=== PATIENT | male | born 1935 | race Caucasian/White ===

== ENCOUNTER 2016-06-10 15:25 | Inpatient (IN) | payer BC ==
[~2016-06-10] VITALS: Ht 175.3 cm; Wt 61.6 kg
[~2016-06-10 15:25] MED LIST: ADV25050 INH; ALBU8.5H3 INH; ASPI81TA3 PO; DUTA0.5C PO; PARO20TA58 PO; RTPRO HHN; TAMS-14 PO; TIOT18CA IH; TRAV4OP25 BOTH EYES; ZOC10 PO; ZOLP10TA5 PO; [UNRECOGNIZED DRUG - CODE] BOTH EYES
[2016-06-10] MEDS ORDERED: CEFEPIME 2GM/50 ML (PMX) 50 ML IVPB STA (16:56)
[2016-06-10] MEDS ORDERED: SODIUM CHLORIDE 0.9% 1L BAG IV* STA (16:56)
[2016-06-10 17:30] LABS: EOSINOPHILS # 0.1 10^3/ul (0.0-0.5); EOSINOPHILS % 0.9 % (0.0-7.0); HEMATOCRIT 36.1 % (42.0-52.0); HEMOGLOBIN 11.1 g/dl (14.0-18.0); LYMPHOCYTES # 0.8 10^3/ul (0.8-2.9); LYMPHOCYTES % 5.8 % (15.0-51.0); MEAN CORPUSCULAR HEMOGLOBIN 22.7 pg (29.0-33.0); MEAN CORPUSCULAR HGB CONC 30.8 g/dl (32.0-37.0); MEAN CORPUSCULAR VOLUME 73.7 fl (82.0-101.0); MEAN PLATELET VOLUME 7.7 fl (7.4-10.4); MONOCYTE # 0.6 10^3/ul (0.3-0.9); MONOCYTES % 4.2 % (0.0-11.0); NEUTROPHIL # 12.5 10^3/ul (1.6-7.5); NEUTROPHILS % 89.1 % (39.0-77.0); PLATELET COUNT 249 10^3/UL (140-440); RED BLOOD COUNT 4.89 10^6/ul (4.70-6.10); RED CELL DISTRIBUTION WIDTH 19.6 % (11.5-14.5); UNCORRECTED WBC 14.1 10^3/ul (4.8-10.8); WHITE BLOOD COUNT 14.1 10^3/ul (4.8-10.8)
[2016-06-10 17:37] LABS: INR 0.88; PROTIME 11.9 Sec (12.2-14.2); PT RATIO 0.9
[2016-06-10 17:38] LABS: PARTIAL THROMBOPLASTIN TIME 24.5 Sec (25.0-35.0)
[2016-06-10 17:40] LABS: CONDITION 1; LH ANALYZER COMMENTS 1
[2016-06-10 17:41] LABS: ALBUMIN 3.6 g/dl (3.3-4.9)
[2016-06-10 17:42] LABS: POTASSIUM 4.8 mmol/L (3.5-5.1)
[2016-06-10 17:44] LABS: ALBUMIN/GLOBULIN RATIO 1.28; BILIRUBIN,INDIRECT 0.3 mg/dl (0-1.1); BILIRUBIN,TOTAL 0.3 mg/dl (0.2-1.3); CREATININE 0.77 mg/dl (0.61-1.24); TOTAL PROTEIN 6.4 g/dl (6.1-8.1)
[2016-06-10 17:45] LABS: CALCIUM 8.8 mg/dl (8.4-10.2)
--- NOTE | 2016-06-10 17:50 | RADRPT ---
PROCEDURE: XR Chest. CLINICAL INDICATION: Shortness of breath. TECHNIQUE: Single frontal view. COMPARISON: 07/19/2014. FINDINGS: The lungs are clear. The heart size is normal. There is no pleural effusion. There is no pneumothorax. IMPRESSION: 1. Normal chest radiograph. RPTAT: QQ .Reginaldo Harper MD, MD Date Time Electronically viewed and signed by .Reginaldo Harper MD, MD on 06/10/2016 17:50 .R/
[2016-06-10 17:56] LABS: TROPONIN-I 0.021 ng/ml (0.00-0.12)
[2016-06-10 18:05] LABS: AADO2 Arterial 36.4 mmHg (7.0-24.0); Allen Test ACCEPTAB; Arterial COHb 0.5 % (0.0-3.0); Arterial Fraction of Oxyhgb 94.2 % (93.0-99.0); Arterial HCO3 34.4 mmol/L (22.0-26.0); Arterial MetHb 0.3 % (0.0-1.5); Arterial Total Hemglobin 11.8 g/dl (12.0-18.0); MODE NASAL CANNULA
[2016-06-10 18:30] LABS: ADD UMIC YES; URINE BILIRUBIN (Dip) NEGATIVE (NEGATIVE); URINE BLOOD (Dip) NEGATIVE (NEGATIVE); URINE COLOR YELLOW (YELLOW); URINE GLUCOSE (Dip) NEGATIVE (NEGATIVE); URINE KETONES (Dip) TRACE (NEGATIVE); URINE LEUKOCYTE ESTERASE (Dip) NEGATIVE (NEGATIVE); URINE NITRITE (Dip) NEGATIVE (NEGATIVE); URINE TOTAL PROTEIN (Dip) TRACE (NEGATIVE); URINE UROBILINOGEN (Dip) 0.2 E.U./dL (0.1-1.0)
[2016-06-10 18:48] LABS: BACTERIA,URINE FEW; MUCUS,URINE FEW; URINE RBCS 0-2 /HPF (0)
[2016-06-10] MEDS ORDERED: ALBUTEROL 0.5% (NEB) 2.5 MG/0.5 ML AMP HHN STA (19:09)
[2016-06-10] MEDS ORDERED: VANCOMYCIN 1 GM (PMX) 250 ML IVPB SCH (19:30)
[2016-06-10] MEDS ORDERED: IPRATROPIUM (NEB) 0.5 MG/2.5 ML AMP HHN ONE (19:30)
[2016-06-10 20:26] VITALS: TEMP 98.6
[2016-06-10] MEDS ORDERED: ONDANSETRON 4 MG INJ IV PRN (21:00)
[2016-06-10] MEDS ORDERED: ACETAMINOPHEN 325 MG TAB PO PRN ×2 (21:00→23:30)
[2016-06-10 22:34] VITALS: PULSE 107
--- NOTE | 2016-06-10 22:44 | ERD ---
ER Documentation Chief Complaint Date/Time DATE: 06/10/16 TIME: 22:28 Chief Complaint more lethargic per daughter over 2 days. no cp. possible high co2 per fam HPI This 80-year-old male presents to emergency room for shortness of breath on home oxygen as well as being more somnolent, not eating and speaking less today. His daughter states that sometimes he gets just like this when his CO2 level is higher. She remembers a recent CO2 level 74 which caused these symptoms. Patient denies any chest pain. He denies any pain anywhere on his body. He also denies fevers and chills. Does admit that he feels more tired than normal and has some generalized weakness without any focal weaknesses. ROS All systems reviewed and are negative except as per history of present illness. Medications Home Meds Active Scripts Paroxetine Hcl* (Paxil*) 20 Mg Tab, 20 MG PO QAM for 30 Days Prov:CAROLYNE PARMAR MD- 12/17/13 Albuterol Sulfate* (Proventil* Neb) 2.5 Mg/3 Ml Nebu, 2.5 MG HHN Q6H RESP THERAPY for 30 Days Prov:CAROLYNE PARMAR MD- 12/17/13 Reported Medications Zolpidem Tartrate* (Zolpidem Tartrate*) 10 Mg Tablet, 10 MG PO HS Y for INSOMNIA , TAB 07/19/14 Aspirin (Aspirin) 81 Mg Chew, 81 MG PO DAILY 12/05/13 Travoprost* (Travatan*) 0.004%-2.5 Ml Opht, 1 DROP BOTH EYES DAILY 12/05/13 Brimonidine Tartrate* (Alphagan-P*) 0.1%-5 Ml Drop Opht, 1 DROP BOTH EYES DAILY 12/05/13 Simvastatin (Simvastatin) 10 Mg Tablet, 10 MG PO DAILY 12/05/13 Dutasteride* (Avodart*) 0.5 Mg Capsule, 0.5 MG PO weekly 12/05/13 Tamsulosin Hcl* (Flomax*) 0.4 Mg Cap.er.24h, 0.4 MG PO daily 12/05/13 Salmeterol Xinaf/Fluticasone* (Advair*) 250-50 Diskus Inhaler, 1 PUFF INH BID 12/05/13 Tiotropium [place]* (Spiriva*) 18 Mcg Cap.w.dev, 1 INH IH DAILY 12/05/13 Albuterol Sulfate* (Proair HFA*) 8.5 Gm Hfa.aer.ad, 2 PUFF INH Q4, INH 09/13/13 Allergies Allergies: Coded Allergies: No Known Drug Allergy (Verified Allergy, Unknown, 07/19/14) PMhx/Soc History of Surgery: Yes (ABDOMINAL AORTIC STENT PLACEMENT 2007) Anesthesia Reaction: No Hx Neurological Disorder: No Hx Respiratory Disorders: Yes (COPD) Hx Cardiac Disorders: Yes Hx Psychiatric Problems: No Hx Miscellaneous Medical Probl: Yes (prostate problems) Hx Alcohol Use: Yes (1991) Hx Substance Use: No Hx Tobacco Use: Yes Smoking Status: Current every day smoker Physical Exam Vitals Vital Signs Date Time Temp Pulse Resp B/P Pulse Ox O2 Delivery O2 Flow Rate FiO2 06/10/16 20:43 98 18 98 Nasal Cannula 2.5 06/10/16 20:26 98.6 99 18 98/69 94 Nasal Cannula 2.0 06/10/16 18:38 94 17 109/72 97 Nasal Cannula 2.0 06/10/16 18:02 109 21 109/72 97 Nasal Cannula 2.0 06/10/16 17:09 Nasal Cannula 2 06/10/16 15:26 97.8 112 30 105/67 96 Physical Exam Const: [] Mild distress, Head: Atraumatic Eyes: Normal Conjunctiva ENT: Normal External Ears, Nose and Mouth. Neck: Full range of motion..~ No meningismus. Resp: Decreased bibasilar breath sounds Cardio: Regular tachycardia, no murmurs Abd: Soft, non tender, non distended. Normal bowel sounds Skin: No petechiae or rashes Back: No midline or flank tenderness Ext: No cyanosis, trace bilateral pedal edema Neur: Awake and alert and oriented, appears somnolent, moves all 4 extremities, cranial nerves II through XII intact. Result Diagram: 06/10/16 1710 06/10/16 171 Results 24 hrs Laboratory Tests Test 06/10/16 16:56 06/10/16 17:10 06/10/16 18:11 06/10/16 18:55 Arterial Blood HCO3 34.4mmol/L Arterial Blood Base Excess 7.0mmol/L Arterial Blood Oxygen Saturation 95.0mmHG Kahlil Test ACCEPTAB Arterial Blood Gas Puncture Site Right Radial Arterial Blood Carboxyhemoglobin 0.5% Arterial Blood Date Drawn 06/10/2016 5:50:13 PM Arterial Blood Methemoglobin 0.3% Arterial Blood pCO2 (Temp correct) 64.1mmhg Arterial Blood pH (Temp corrected) 7.348 Arterial Blood pO2 (Temp corrected) 80.3mmHG Blood Gas A-a O2 Differential 36.4mmHg Blood Gas Actual Respiration Rate 18 Blood Gas Critical Value Read Back DR. JORGE CORTÉS Blood Gas Modality NASAL CANNULA Blood Gas Notified Time 06/10/2016 6:05:12 PM Blood Gas Notified Whom HALLIE RT Blood Gas Specimen Source Blood arterial Blood Gas Temperature 37.0C FiO2 27.0% Oxyhemoglobin Percent 94.2% Total Hemoglobin 11.8g/dl Activated Partial Thromboplast Time 24.5Sec Alanine Aminotransferase (ALT/SGPT) 34IU/L Albumin 3.6g/dl Albumin/Globulin Ratio 1.28 Alkaline Phosphatase 139IU/L Anion Gap 13 Aspartate Amino Transf (AST/SGOT) 25IU/L B-Type Natriuretic Peptide 248PG/ML Basophils # 0.010^3/ul Basophils % 0.0% Blood Morphology Comment Blood Urea Nitrogen 25mg/dl Calcium Level 8.8mg/dl Carbon Dioxide Level 38mmol/L Chloride Level 92mmol/L Creatinine 0.77mg/dl Direct Bilirubin 0.00mg/dl Eosinophils # 0.110^3/ul Eosinophils % 0.9% Globulin 2.80g/dl Glucose Level 129mg/dl Hematocrit 36.1% Hemoglobin 11.1g/dl INR International Normalized Ratio 0.88 Indirect Bilirubin 0.3mg/dl Lactic Acid Level 1.2mmol/L 1.2mmol/L Lymphocytes # 0.810^3/ul Lymphocytes % 5.8% Mean Corpuscular Hemoglobin 22.7pg Mean Corpuscular Hemoglobin Concent 30.8g/dl Mean Corpuscular Volume 73.7fl Mean Platelet Volume 7.7fl Monocytes # 0.610^3/ul Monocytes % 4.2% Neutrophils # 12.510^3/ul Neutrophils % 89.1% Nucleated Red Blood Cells # 0.010^3/ul Nucleated Red Blood Cells % 0.0/100WBC Platelet Count 12067^3/UL Potassium Level 4.8mmol/L Prothrombin Time 11.9Sec Prothrombin Time Ratio 0.9 Red Blood Count 4.8910^6/ul Red Cell Distribution Width 19.6% Sodium Level 138mmol/L Total Bilirubin 0.3mg/dl Total Protein 6.4g/dl Troponin I 0.021ng/ml White Blood Count 14.110^3/ul Urine Bacteria FEW Urine Bilirubin NEGATIVE Urine Clarity CLEAR Urine Color YELLOW Urine Epithelial Cells OCCASIONAL Urine Glucose NEGATIVE% Urine Hemoglobin NEGATIVE Urine Ketones TRACE Urine Leukocyte Esterase NEGATIVE Urine Microscopic RBC 0-2/HPF Urine Microscopic WBC 0-2/HPF Urine Mucus FEW Urine Nitrite NEGATIVE Urine Specific [place] 1.020 Urine Total Protein TRACE Urine Urobilinogen 0.2 E.U./dL Urine pH 6.0 Test 06/10/16 21:25 Lactic Acid Level 0.6mmol/L Current Medications Medications (Trade) Dose Ordered Sig/Jimmy Route PRN Reason Start Time Stop Time Status Last Admin Dose Admin Sodium Chloride 1760 ml 1,760 ml BOLUS OVER 2 HOURS STAT IV* 06/10/16 16:56 06/10/16 16:58 DC 06/10/16 17:49 Cefepime HCl 50 ml @ 100 mls/hr ONCE STAT IVPB 06/10/16 16:56 06/10/16 17:25 DC 06/10/16 17:49 Vancomycin HCl (Vancocin) 250 ml @ 125 mls/hr ONCE IVPB 06/10/16 19:30 06/10/16 21:29 DC 06/10/16 20:37 Albuterol (Proventil 0.5% (Neb)) 5 mg ONCE STAT HHN 06/10/16 19:09 06/10/16 19:10 DC 06/10/16 20:43 Ipratropium [place] (Atrovent 0.02% (Neb)) 0.5 mg ONCE ONCE HHN 06/10/16 19:30 06/10/16 19:31 DC 06/10/16 20:43 Ondansetron HCl (Zofran Inj) 4 mg ER BRIDGE PRN IV NAUSEA AND/OR VOMITING 06/10/16 21:00 06/11/16 20:59 Acetaminophen (Tylenol Tab) 650 mg ER BRIDGE PRN PO MILD PAIN/FEVER 06/10/16 21:00 06/11/16 20:59 Procedures/MDM COPD exacerbation and sepsis with source not yet known. He has had tachycardia elevated white count. He was given cefepime empirically. No obvious pneumonia or urinary tract infection. Bronchitis is possible. Patient had no abdominal symptoms and no reason to obtain abdominal CT. He was given 30 cc/kg of IV fluid which did improve his heart rate gradually. He is also given albuterol and Atrovent breathing treatment. CO2 was 64 on ABG which may slightly be slightly contributing symptoms but I believe the sepsis is more likely. Solu- Medrol was also ordered. With fluid administration his activity level and mental status improved and according to the daughter and he was feeling better. He will be admitted for further antibiotics and evaluation and monitoring. Dr. Murray is admitting. EKG interpretation: Sinus tachycardia rate of 106. Borderline right axis deviation, no ST or T-wave changes concerning for acute ischemia. court recording monitor interpretation: Sinus tachycardia without other arrhythmias Chest x-ray interpretation: I see no acute process, no infiltrates, no widened mediastinum, no pneumothorax, no acute fractures Departure Diagnosis: Primary Impression: Sepsis Additional Impressions: COPD exacerbation Microcytic anemia Respiratory acidosis Altered level of consciousness Condition: Stable JORGE CORTÉS DO Jun 10, 2016 22:38
[2016-06-10 22:48] VITALS: BP 99/60; RESP 20
[2016-06-10] MEDS ORDERED: METHYLPREDNISOLONE 125 MG INJ IV ONE (23:00)
[2016-06-10] MEDS ORDERED: ZOLPIDEM 5 MG TAB PO PRN (23:30)
[2016-06-11] VITALS (13 sets, daily range): BP systolic 103–141; BP diastolic 62–73; PULSE 78–109; RESP 15–20; Ht 175.3 cm; Wt 61.6 kg
[2016-06-11] MEDS: ALBUTEROL/IPRATROPIUM (NEB) 3 ML AMP HHN SCH ×4 (01:20→19:44)
[2016-06-11 07:49] LABS: POTASSIUM 4.7 mmol/L (3.5-5.1)
[2016-06-11 07:51] LABS: CREATININE 0.58 mg/dl (0.61-1.24)
[2016-06-11 07:52] LABS: CALCIUM 8.1 mg/dl (8.4-10.2)
[2016-06-11 08:04] LABS: HEMATOCRIT 30.1 % (42.0-52.0); HEMOGLOBIN 9.4 g/dl (14.0-18.0); LYMPHOCYTES # 0.4 10^3/ul (0.8-2.9); LYMPHOCYTES % 3.9 % (15.0-51.0); MEAN CORPUSCULAR HEMOGLOBIN 23.1 pg (29.0-33.0); MEAN CORPUSCULAR HGB CONC 31.2 g/dl (32.0-37.0); MEAN CORPUSCULAR VOLUME 73.8 fl (82.0-101.0); MEAN PLATELET VOLUME 7.9 fl (7.4-10.4); MONOCYTE # 0.1 10^3/ul (0.3-0.9); MONOCYTES % 0.9 % (0.0-11.0); NEUTROPHILS % 95.2 % (39.0-77.0); PLATELET COUNT 223 10^3/UL (140-440); RED BLOOD COUNT 4.08 10^6/ul (4.70-6.10); RED CELL DISTRIBUTION WIDTH 18.7 % (11.5-14.5); UNCORRECTED WBC 9.4 10^3/ul (4.8-10.8); WHITE BLOOD COUNT 9.4 10^3/ul (4.8-10.8)
[2016-06-11 08:05] LABS: CONDITION 1; LH ANALYZER COMMENTS 1
[2016-06-11] MEDS ORDERED: NON-FORMULARY/PATIENT OWN MED (Simvastatin 10 MG) PO SCH (09:00)
[2016-06-11] MEDS ORDERED: METHYLPREDNISOLONE 40 MG INJ IV SCH (09:00)
[2016-06-11] MEDS ORDERED: TRAVOPROST 0.004% 2.5 ML OPH BOTH EYES SCH (09:00)
[2016-06-11] MEDS: CEFEPIME 1GM/50 ML (PMX) 50 ML IVPB SCH ×2 (10:03→20:53)
[2016-06-11] MEDS: SALMETEROL/FLUTICASONE 250/50 INHA INH SCH ×2 (10:05→20:53)
[2016-06-11] MEDS: BRIMONIDINE 0.1% 5 ML OPH BOTH EYES SCH (10:05)
[2016-06-11] MEDS: TIOTROPIUM 18 MCG CAPSULE INHA DEV INH SCH (10:06)
[2016-06-11] MEDS: ASPIRIN 81 MG TAB PO SCH (10:06)
[2016-06-11] MEDS: TAMSULOSIN (SR) 0.4 MG CAP PO SCH (10:06)
[2016-06-11] MEDS: PAROXETINE 20 MG TAB PO SCH (10:06)
[2016-06-11] MEDS: ENOXAPARIN 40 MG/0.4 ML SYG SC SCH (10:26)
[2016-06-11] MEDS ORDERED: ALPRAZOLAM 0.5 MG TAB PO PRN (11:30)
[2016-06-11] MEDS: FAMOTIDINE 20 MG TAB PO SCH (11:59)
--- NOTE | 2016-06-11 12:43 | HP ---
DATE OF ADMISSION: 06/10/2016 CHIEF COMPLAINT: Patient was brought by his daughter due to the patient feels more lethargic. HISTORY OF PRESENT ILLNESS: The patient is an 80-year-old gentleman with history of COPD, on home o xygen. Patient with GERD, BPH, anxiety, hyperlipidemia, and insomnia. Patient noted to be more ad nolent than usual. Patient had a history of a CO2 retainer, and the patient's daughter was concerne d about it and brought patient to the emergency room. The patient complained of generalized weaknes s, lethargy, and difficulty breathing. Patient denied any fever or chills, denies chest pain. The patient underwent a chest x-ray in the emergency room which showed clear lungs. A urinalysis was wi thin normal limits. The patient's ABG with pCO2 was 64; however, according to the daughter the marshall ent had a recent lethargic episode with a CO2 level being 74. Patient's PTH was 7.34. A recent ABG pO2 is 80, bicarbonate 34,l and oxygen saturation 95 on nasal cannula at 27% oxygen. The patient's white blood cells were found to be elevated to 14,100. Blood pressure was also 98/69, and patient was tachycardic on presentation to the emergency room. Patient was started on cefepime for possible bronchitis or early pneumonia. The patient was also getting breathing treatment and Solu-Medrol wi th some improvement in symptoms. The patient is admitted for further evaluation and management. PAST MEDICAL HISTORY: Per HPI. PAST SURGICAL HISTORY: Status post abdominal aortic aneurysm repair in 2007, status post cataract r epair in 2009. FAMILY HISTORY: Patient's mother of atherosclerotic heart disease. Patient's father had a sei zure disorder. One of the patient's siblings of lung cancer. SOCIAL HISTORY: Patient lives at home. The patient is still an every day smoker, states he smokes about a couple of cigarettes per day, trying to quit. The patient denies any recent alcohol use, de nies illicit drug use. ALLERGIES: NO KNOWN ALLERGIES. HOME MEDICATIONS: 1. Paroxetine. 2. Proventil. 3. Zolpidem. 4. Aspirin. 5. Travatan. 6. Alphagan. 7. Simvastatin. 8. Avodart. 9. Flomax. 10. Advair. 11. Spiriva. 12. ProAir HFA. REVIEW OF SYSTEMS: A 12-point review of systems is negative unless was mentioned in the HPI. The p atient denies any nausea, vomiting, diarrhea. Denies any lower extremity swelling. Denies chills. PHYSICAL ASSESSMENT GENERAL: Well-developed, well-nourished male, currently is awake, alert. VITAL SIGNS: Temperature is 97.8, pulse is 102, respiratory rate 20, blood pressure 128/62, oxygen saturation 97% on 2 liters nasal cannula. HEENT: Head is atraumatic, normocephalic. Pupils equal, round, reactive to light and accommodation . Oral mucosa is pink and moist. NECK: Supple. No cervical lymphadenopathy. No thyromegaly. CHEST: The patient has some inspiratory wheezing and diminished air entry bilaterally. CARDIOVASCULAR: Heart: Normal S1, S2. No murmurs, gallops, clicks, rubs noted. Patient is slight ly tachycardic. ABDOMEN: Protuberant, soft, nondistended, nontender. Bowel sounds present. There is no guarding, no rebound tenderness. EXTREMITIES: Trace bilateral edema. No clubbing, cyanosis. Pulses equal bilaterally 2+. SKIN: There is no rash or petechiae noted. NEUROLOGIC: Patient is awake, alert, and oriented to name and situation. No focal deficits noted. Motor strength is 5/5 in all extremities. LABORATORY DATA: On admission, CBC: White blood cells 14.1, hemoglobin 11.1, hematocrit 36.1, plat elets 249,000. Chemistry: Sodium is 138, potassium 4.8, chloride 92, carbon dioxide 38, anion gap 13, BUN is 25, creatinine 0.77. Lactic acid is 1.2. AST is 25, ALT is 34, alkaline phosphatase is 139. BNP is 248,000. Troponin 0.02. ASSESSMENT AND PLAN: 1. Possible sepsis secondary to bronchitis or early pneumonia. 2. Possible bronchitis. Continue patient on cefepime. We will obtain sputum culture. 3. Chronic obstructive pulmonary disease exacerbation. Continue patient on supplemental oxygen, So nini-Medrol, and bronchodilators. 4. Respiratory acidosis. 5. Metabolic encephalopathy. We are going to obtain influenza A and B, continue antibiotics, resum e patient's home medication. for hypertrophy. Continue Flomax. 6. Benign prostatic hypertrophy. Flomax. 7. Anxiety. Continue Paxil and Xanax p.r.n. for anxiety. 8. Chronic anemia. We will continue Lovenox for deep venous thrombosis prophylaxis and Pepcid for peptic ulcer disease prophylaxis. Further recommendations based on clinical course. Plan of care discussed with Dr. Murray. Dictated By: KORTNEY MCCRACKEN TRACK HELPER for DEBBIE MURRAY MD SR/NTS Conf#: [id number] DID#: [id number]
[2016-06-11] MEDS: ATORVASTATIN 10 MG TAB PO SCH (20:53)
[2016-06-11] MEDS: METHYLPREDNISOLONE 40 MG INJ IV SCH (20:53)
[2016-06-11] MEDS: LATANOPROST 0.005% 2.5 ML OPH BOTH EYES SCH (20:54)
[2016-06-12] VITALS (13 sets, daily range): BP systolic 109–136; BP diastolic 58–73; PULSE 80–158; RESP 16–18
[2016-06-12] MEDS: ALBUTEROL/IPRATROPIUM (NEB) 3 ML AMP HHN SCH ×4 (02:09→21:28)
[2016-06-12] MEDS: ALPRAZOLAM 0.25 MG TAB PO PRN ×2 (06:38→22:20)
--- NOTE | 2016-06-12 06:56 | RADRPT ---
PROCEDURE: XR, Chest. CLINICAL INDICATION: Follow up for respiratory distress. TECHNIQUE: AP chest. COMPARISON: Chest, 06/10/2016. FINDINGS: The lungs are somewhat overinflated. There is calcified atherosclerosis of the aortic arch. The he art is not enlarged. There is no acute infiltrate in the lungs. No pleural lesion. IMPRESSION: 1. Somewhat overinflated lungs. 2. Calcified atherosclerosis of the aortic arch. RPTAT: GG .Mynor Clemente MD, MD Date Time Electronically viewed and signed by .Mynor Clemente MD, MD on 06/12/2016 06:56 .Y/
[2016-06-12 07:11] LABS: POTASSIUM 4.3 mmol/L (3.5-5.1)
[2016-06-12 07:14] LABS: CALCIUM 8.1 mg/dl (8.4-10.2); CREATININE 0.63 mg/dl (0.61-1.24)
[2016-06-12] MEDS: SALMETEROL/FLUTICASONE 250/50 INHA INH SCH ×2 (09:29→20:18)
[2016-06-12] MEDS: ASPIRIN 81 MG TAB PO SCH (09:29)
[2016-06-12] MEDS: TAMSULOSIN (SR) 0.4 MG CAP PO SCH (09:29)
[2016-06-12] MEDS: TIOTROPIUM 18 MCG CAPSULE INHA DEV INH SCH (09:29)
[2016-06-12] MEDS: PAROXETINE 20 MG TAB PO SCH (09:29)
[2016-06-12] MEDS: FAMOTIDINE 20 MG TAB PO SCH (09:29)
[2016-06-12] MEDS: BRIMONIDINE 0.1% 5 ML OPH BOTH EYES SCH (09:30)
[2016-06-12] MEDS: METHYLPREDNISOLONE 40 MG INJ IV SCH ×2 (09:30→20:18)
[2016-06-12 09:33] LABS: HEMATOCRIT 28.2 % (42.0-52.0); HEMOGLOBIN 8.9 g/dl (14.0-18.0); LYMPHOCYTES # 0.8 10^3/ul (0.8-2.9); LYMPHOCYTES % 7.7 % (15.0-51.0); MEAN CORPUSCULAR HEMOGLOBIN 23.3 pg (29.0-33.0); MEAN CORPUSCULAR HGB CONC 31.4 g/dl (32.0-37.0); MEAN CORPUSCULAR VOLUME 74.2 fl (82.0-101.0); MEAN PLATELET VOLUME 8.2 fl (7.4-10.4); MONOCYTE # 0.6 10^3/ul (0.3-0.9); MONOCYTES % 5.5 % (0.0-11.0); NEUTROPHIL # 9.3 10^3/ul (1.6-7.5); NEUTROPHILS % 86.8 % (39.0-77.0); PLATELET COUNT 230 10^3/UL (140-440); RED BLOOD COUNT 3.81 10^6/ul (4.70-6.10); UNCORRECTED WBC 10.7 10^3/ul (4.8-10.8); WHITE BLOOD COUNT 10.7 10^3/ul (4.8-10.8)
[2016-06-12 09:36] LABS: CONDITION 1; LH ANALYZER COMMENTS 1
[2016-06-12] MEDS: ENOXAPARIN 40 MG/0.4 ML SYG SC SCH (09:38)
--- NOTE | 2016-06-12 09:45 | SP ---
MEDICAL PROGRESS NOTE: DATE OF VISIT: 06/12/2016 SUBJECTIVE: The patient is feeling a little better, less shortness of breath. OBJECTIVE: CECILE SIGNS: Temperature 97.8, pulse of 86, respirations 18, blood pressure 136/ 73, oxygen saturation 98% on 2 L. GENERAL: Well-developed male in no acute distress, lying in bed. CHEST: Decreased breath sounds bilaterally with coarse rhonchi and end- expiratory wheezing bilaterally. HEART: Regular rate and rhythm. No ectopy. ABDOMEN: Soft, nontender. EXTREMITIES: No cyanosis, clubbing, or edema. LABORATORY EXAMINATION: Hemoglobin of 9.4, hematocrit of 30.1, white blood cell count of 9.4, platelets 223. Sodium 139, potassium 4.3, chloride 96, bicarbonate 34, BUN 30, creatinine 0.63, blood sugar 135, calcium 8.1. Chest x- ray shows overinflated lungs, calcified aortic atherosclerosis of the aortic arch, but otherwise no infiltrates. IMPRESSION: 1. Chronic bronchitis with acute exacerbation. The patient is somewhat improved. We will continue with antibiotics, breathing treatments, Solu-Medrol , and oxygen. 2. Anxiety. Will continue with p.r.n. alprazolam. 3. Anemia. This is decreased with hydration. We will send off iron studies to evaluate further. 4. Benign prostatic hypertrophy. We will continue the patient's medication. 5. Hyperlipidemia. Will continue with diet. 6. Glaucoma. We will continue the patient's drops. Dictated By: CAROLYNE PARMAR MD, SR/VICKI Conf#: [id number] DID#: [id number] LIGIA
[2016-06-12] MEDS: CEFEPIME 1GM/50 ML (PMX) 50 ML IVPB SCH ×2 (10:17→20:17)
--- NOTE | 2016-06-12 17:14 | CONS ---
DATE OF ADMISSION: 06/10/2016 DATE OF CONSULTATION: 06/12/2016 REASON FOR CONSULTATION: Wide complex tachycardia. Assess for nonsustained ventricular tachycardia . REQUESTING PHYSICIAN: Phu Murray MD HISTORY OF PRESENT ILLNESS: Mr. Andrew is an 80-year-old male with history of ongoing tobacco usage, who has quit x1 month per patient, diagnosis of COPD on home O2, gastroesophageal reflux disease, B PH, anxiety, dyslipidemia who initially presented with complaints of generalized lethargy, inability to ambulate and shortness of breath. Upon arrival in the emergency department, temperature 97.8, b lood pressure 105/67, pulse 112, respiratory rate 30, satting 96%. The patient's labs revealed whi te count 14.1, hemoglobin 11.1, platelet count 249. Sodium 138, potassium 4.8, creatinine of 1.77, BUN of 25, AST 25, ALT 34. Troponin negative. BNP of 248. UA negative for narrow complex tachycar que. BNP of 248. UA negative. ABG revealing a pH of 7.348, a pCO2 of 64, a PaO2 of 80. The patien t's chest x-ray revealed no significant acute cardiopulmonary abnormalities. The patient's electroc ardiogram is not in chart for my review at this time. The patient was subsequently admitted to the floor and placed on antibiotics, bronchodilators, and still he continues to have shortness of breath . The patient has been continuously monitored on telemetry, had an episode of a narrow complex tach ycardia times approximately 4 to 5 beats, concerning for possible supraventricular tachyarrhythmia. Therefore, cardiology consultation has been requested. The patient at this time states he does fe el intermittent palpitations. Denies chest pain, has ongoing shortness of breath. The patient anisa es prior myocardial infarction. PAST MEDICAL HISTORY: As above in HPI. MEDICATIONS CURRENTLY IN HOSPITAL: 1. Lipitor 10 mg at bedtime. 2. ____ 40 mg IV q.12h.. 3. Xanax 0.5 q.8h. p.r.n. 4. Pepcid 20 mg daily. 5. Aspirin 81 mg daily. 6. Alphagan eyedrops. 7. Paxil 20 mg q.a.m. 8. Advair Diskus 1 inhaled b.i.d. 9. Spiriva. 10. Flomax. 11. Cefepime. 12. Lovenox. 13. DuoNeb. 14. Ambien p.r.n. 15. Tylenol p.r.n. ALLERGIES: NO KNOWN DRUG ALLERGIES. SOCIAL HISTORY: Positive tobacco, quit x1 month per patient. No ETOH or illicit drug use. FAMILY HISTORY: No history of sudden cardiac or early CAD. REVIEW OF SYSTEMS: As above in HPI. CONSTITUTIONAL: No fevers, chills. PULMONARY: Shortness of breath, COPD. CARDIOVASCULAR: No current chest pain or SVT. GASTROINTESTINAL: No vomiting. GENITOURINARY: No hematuria. MUSCULOSKELETAL: Degenerative joint disease. PSYCHIATRIC: Possible depression. NEUROLOGIC: No documented history of CVA. ENDOCRINE: No documented history of thyroid disease. PHYSICAL EXAMINATION: VITAL SIGNS: Temperature 97.8, blood pressure most recently 118/64, pulse 97, saturating 100% on 2 liters. GENERAL: The patient is alert, awake, complaining of mild shortness of breath. NECK: JVP approximately 8 to 9 cm water. CHEST: Decreased breath sounds throughout with positive expiratory wheezing. ABDOMEN: Positive bowel sounds, soft. EXTREMITIES: No pitting edema, 1+ pulses bilateral posterior tibial. LABORATORY DATA: Most recent from today, sodium 139, potassium of 4.3, creatinine 0.6, BUN 30. Whi te blood cell count 10.7, hemoglobin 8.9, platelet count of 230, MCV of 74. INR of 0.88. IMAGING STUDIES: As above in HPI with chest x-ray from today revealing overinflated lungs and calci fied atherosclerosis of the aortic arch. IMPRESSION: 1. ____ tachycardia x3 for beats concerning for supraventricular tachycardia, question AVNRT, atypi shailesh atrial flutter, less likely AVRT, possible atrial tachycardia. 2. Dyslipidemia. 3. Hypertension, labile. 4. Chronic obstructive pulmonary disease exacerbation. 5. Increased BNP mildly, assess for congestive heart failure. 6. Psychiatric disorder. 7. Benign prostatic hypertrophy. 8. Possible bronchitis. RECOMMENDATIONS: 1. At this time, would maintain the patient on telemetry monitoring to follow rhythm and rate contr ol closely. 2. Will initiate the patient on low-dose calcium channel issac to attempt to suppress further imelda ts of supraventricular tachycardia in lieu of beta issac given COPD, so as not to exacerbate any p ossible bronchospasm. 3. Continue the patient's aspirin for prophylaxis against cardiac events. 4. We will send a TSH to be sure that subclinical hyperthyroidism is ____of supraventricular tachyc ardia rhythm. 5. Check a fasting lipid panel for general risk stratification and initiate lipid-lowering medicati on as necessary. 6. Continue the patient's current antibiotics, bronchodilators, and steroids. 7. Will check a 2D echo to further risk stratify this patient in the setting of cardiac arrhythmia. Thank you for allowing me to take part in the care of this patient. I will continue to follow along very closely with you with further recommendations to be made as the patient progresses through his inpatient hospital clinical course. Dictated By: GABRIEL ARAUZ/VICKI Conf#: [id number] DID#: [id number] CC: PHU MURRAY MD;*EndCC*
[2016-06-12] MEDS: ATORVASTATIN 10 MG TAB PO SCH (20:17)
[2016-06-12] MEDS: DILTIAZEM 30 MG TAB PO SCH (21:08)
[2016-06-12] MEDS: LATANOPROST 0.005% 2.5 ML OPH BOTH EYES SCH (21:12)
[2016-06-13] VITALS (12 sets, daily range): BP systolic 91–128; BP diastolic 51–79; PULSE 74–96; RESP 16–22
[2016-06-13] MEDS: ALBUTEROL/IPRATROPIUM (NEB) 3 ML AMP HHN SCH ×4 (02:17→19:48)
[2016-06-13] MEDS: DILTIAZEM 30 MG TAB PO SCH ×3 (06:19→21:00)
[2016-06-13 08:13] LABS: RETICULOCYTE COUNT % 2.2 % (0.5-1.5)
[2016-06-13 08:28] LABS: IRON 16 ug/dl (35-150)
[2016-06-13 08:29] LABS: CHOL/HDL RATIO 3.3 RATIO
[2016-06-13 08:37] LABS: TOTAL IRON BINDING CAPACITY 275 ug/dl (241-421)
[2016-06-13] MEDS ORDERED: PANTOPRAZOLE (EC) 40 MG TAB PO ONE (09:30)
[2016-06-13] MEDS: ASPIRIN 81 MG TAB PO SCH (09:52)
[2016-06-13] MEDS: SALMETEROL/FLUTICASONE 250/50 INHA INH SCH ×2 (09:52→22:06)
[2016-06-13] MEDS: CEFEPIME 1GM/50 ML (PMX) 50 ML IVPB SCH ×3 (09:52→22:15)
[2016-06-13] MEDS: FAMOTIDINE 20 MG TAB PO SCH (09:53)
[2016-06-13] MEDS: TIOTROPIUM 18 MCG CAPSULE INHA DEV INH SCH (09:53)
[2016-06-13] MEDS: METHYLPREDNISOLONE 40 MG INJ IV SCH ×2 (09:53→22:06)
[2016-06-13] MEDS: TAMSULOSIN (SR) 0.4 MG CAP PO SCH (09:53)
[2016-06-13] MEDS: ENOXAPARIN 40 MG/0.4 ML SYG SC SCH (09:55)
--- NOTE | 2016-06-13 10:02 | PN ---
DATE: 06/13/2016 MEDICAL PROGRESS NOTE SUBJECTIVE: The patient is feeling slightly better, less shortness of breath, occasional palpitatio ns. No chest pain. OBJECTIVE: VITAL SIGNS: Temperature 98.4, pulse anywhere from 77 to 102, respiratory rate is 20, oxygen satura tion 99% on 2 L nasal cannula. GENERAL: Well-developed, well-nourished male in no acute distress. SKIN: Multiple purpuric lesions, extremities. CHEST: Decreased breath sounds at bilateral bases with coarse rhonchi and end-expiratory wheezing HEART: Tachycardic, but regular. ABDOMEN: Soft, nontender, normoactive bowel sounds. EXTREMITIES: No cyanosis, clubbing, or edema. LABORATORY EXAMINATION: Iron of 16, TIBC of 275, percent saturation of 6. Cholesterol of 159, trig lycerides 105, LDL of 91, HDL of 47. Reticulocyte count 2.2%, absolute retic is 0.077. ASSESSMENT AND PLAN: 1. Chronic bronchitis with acute exacerbation. The patient is slightly better and will continue wi th antibiotics, oxygen supplementation, Solu-Medrol, and breathing treatments. 2. Tachycardia. I appreciate Dr. Lee' input into this case. Await results of the echocardiogr am done this morning. We will continue telemetry monitoring and institution of the diltiazem to see how this works. 3. Anemia. The patient has evidence of iron deficiency anemia by testing. Will test stool occult x3. Will hold off any endoscopy at this point. Will place patient on Protonix at this time. 4. BPH. Continue with patient's medications. 5. Glaucoma. We will continue the patient's medications. Dictated By: CAROLYNE PARMAR MD, SR/NTS Conf#: [id number] DID#: [id number]
[2016-06-13] MEDS: BRIMONIDINE 0.1% 5 ML OPH BOTH EYES SCH (10:09)
[2016-06-13] MEDS: PAROXETINE 20 MG TAB PO SCH (10:09)
[2016-06-13] MEDS: ALPRAZOLAM 0.25 MG TAB PO PRN ×2 (10:10→22:20)
--- NOTE | 2016-06-13 14:39 | CONS ---
Date/Time of Note Date/Time of Note DATE: 06/13/16 TIME: 14:35 Assessment/Plan Assessment/Plan Chief Complaint/Hosp Course IMPRESSION: 1. Tachyarrythmia-short run question AVNRT, atypical atrial flutter, less likely AVRT, possible atrial tachycardia.-NL TSH 2. Dyslipidemia. 3. Hypertension, labile. 4. Chronic obstructive pulmonary disease exacerbation. 5. Increased BNP mildly, assess for congestive heart failure. 6. Psychiatric disorder. 7. Benign prostatic hypertrophy. 8. Possible bronchitis. Recc: -Tele -Compete ERICA -Will f/u echo -Continue dilt as tolerated only and will decrase dose to allow to better tolerate -Continue statin -Continue asa -Continue abx's and f/u cx data Problems: Consultation Date/Type/Reason Admit Date/Time Jun 10, 2016 at 20:37 Initial Consult Date 06/12/2016 Type of Consultation: Cardiology Reason for Consultation SVT Referring Provider: DEBBIE CRAWFORD MD Exam/Review of Systems Vital Signs Vitals Vital Signs Date Time Temp Pulse Resp B/P Pulse Ox O2 Delivery O2 Flow Rate FiO2 06/13/16 13:17 92 20 97 Nasal Cannula 2.0 06/13/16 11:50 98.0 94/51 Intake and Output 06/12/16 06/12/16 06/13/16 15:00 23:00 07:00 Intake Total 50 ml 420 ml Output Total 150 ml 350 ml Balance 50 ml 270 ml -350 ml Exam Review of Systems: CONSTITUTIONAL: No fevers, chills. PULMONARY: No sob CARDIOVASCULAR: No chest pain/palpitations GASTROINTESTINAL: No nausea/vomiting. GENITOURINARY: No hematuria/dysuria. MUSCULOSKELETAL: No myagias/arthalgias. PSYCHIATRIC: The patient denies depression. NEUROLOGIC: lethargic Constitutional: alert, well developed ENMT: mucosa pink and moist Neck: jvd (8 cm water), supple Respiratory: diminished breath sounds (at bases/B) Cardiovascular: regular rate and rhythm Gastrointestinal: non-tender, soft Musculoskeletal: muscle tone (normal) Extremities: edema (none) Neurological: other (No focal deficits) Results Result Diagram: 06/12/16 0615 06/12/16 0615 Results 24 hrs Laboratory Tests Test 06/13/16 06:56 Absolute Reticulocyte Count 0.077 Cholesterol Level 159 Cholesterol/HDL Ratio 3.3 Folate Pending HDL Cholesterol 47 Iron Level 16 L LDL Cholesterol, Calculated 91 Percent Iron Saturation 6 L Percent Reticulocyte Count 2.2 H Total Iron Binding Capacity 275 Triglycerides Level 105 Vitamin B12 Level 568 Medications Medications Current Medications Aspirin (Aspirin) 81 mg DAILY PO Last administered on 06/13/16 09:52; Admin Dose 81 MG; Start 06/11/16 at 09:00 Brimonidine Tartrate (Alphagan P 0.1%) 1 drop DAILY BOTH EYES Last administered on 06/13/16 10:09; Admin Dose 1 DROP; Start 06/11/16 at 09:00 Paroxetine HCl (Paxil) 20 mg QAM PO Last administered on 06/13/16 10:09; Admin Dose 20 MG; Start 06/11/16 at 09:00 Salmeterol Xinafoate/ Fluticasone (Advair 250/50 Diskus) 1 inh BID INH Last administered on 06/13/16 09:52; Admin Dose 1 INH; Start 06/11/16 at 09:00 Tamsulosin HCl (Flomax) 0.4 mg daily PO Last administered on 06/13/16 09:53; Admin Dose 0.4 MG; Start 06/11/16 at 09:00 Tiotropium [place] (Spiriva) 1 inh DAILY INH Last administered on 06/13/16 09: 53; Admin Dose 1 INH; Start 06/11/16 at 09:00 Zolpidem Tartrate 10 mg 10 mg HS PRN PO INSOMNIA; Start 06/10/16 at 23:30 Cefepime HCl (Maxipime 1gm/50 ml (Pmx)) 50 ml @ 100 mls/hr Q12 IVPB Last administered on 06/13/16 11:23; Admin Dose 100 MLS/HR; Start 06/11/16 at 09:00 Enoxaparin Sodium (Lovenox) 40 mg DAILY SC Last administered on 06/13/16 09:55 ; Admin Dose 40 MG; Start 06/11/16 at 09:00 Acetaminophen (Tylenol Tab) 650 mg Q4H PRN PO PAIN AND OR ELEVATED TEMP; Start 06/10/16 at 23:30 Atorvastatin Calcium (Lipitor) 10 mg DAILY@21 PO Last administered on 20:17; Admin Dose 10 MG; Start 06/11/16 at 21:00 Latanoprost (Xalatan) 1 drop HS BOTH EYES Last administered on 06/12/16 21:12 ; Admin Dose 1 DROP; Start 06/11/16 at 21:00 Famotidine (Pepcid) 20 mg DAILY PO Last administered on 06/13/16 09:53; Admin Dose 20 MG; Start 06/11/16 at 11:30 Alprazolam (Xanax) 0.5 mg Q8H PRN PO ANXIETY Last administered on 06/13/16 10: 10; Admin Dose 0.5 MG; Start 06/11/16 at 12:00 Methylprednisolone Sodium Succinate (Solu-Medrol) 40 mg Q12 IV Last administered on 06/13/16 09:53; Admin Dose 40 MG; Start 06/11/16 at 21:00 Diltiazem HCl (Cardizem) 30 mg Q8 PO Last administered on 06/13/16 06:19; Admin Dose 30 MG; Start 06/12/16 at 22:00 Pantoprazole (Protonix Tab) 40 mg DAILY@06 PO ; Start 06/14/16 at 06:00 GABRIEL MARTIN Jun 13, 2016 14:39
[2016-06-13] MEDS ORDERED: SOD CHLORIDE 0.9% 500 ML IV ONE (15:00)
[2016-06-13] MEDS: ATORVASTATIN 10 MG TAB PO SCH (22:06)
[2016-06-13] MEDS: LATANOPROST 0.005% 2.5 ML OPH BOTH EYES SCH (22:06)
--- NOTE | 2016-06-13 23:05 | RADRPT ---
Echocardiogram Report Patient Name: CATHI KWON Gender: Male Date: 1935 Study Date: 13-Jun-2016 Iv Therapy Nurse: Luis Ellsworth [facility] Location: 5551 Ref. Physician: GABRIEL LEE Quality: Technically Difficult Study Procedures: Transthoracic echocardiogram with complete 2D, M-Mode, and doppler examination. Indications: SVT. 2D/M Mode Doppler Measurement Value Normal Ranges Measurement Value Normal Ranges LVIDd 2D 4.3 3.5 - 5.6 cm AV Peak [place]ha 1.0 m/sec LVIDs 2D 2.6 2.1 - 4.1 cm AV Peak PG 4.0 mmHg FS 2D 39.9 % LVOT Peak [place]ha 0.7 m/sec LVPWd 2D 0.9 0.6 - 1.1 cm LVOT Peak PG 2.0 mmHg IVSd 2D 1.0 0.6 - 1.1 cm MV E Peak Mustapha 0.5 m/sec IVS/LVPW 2D 1.1 MV A Peak Mustapha 0.8 m/sec AoR Diam 2D 3.5 2.0 - 3.7 cm MV E/A 0.6 LA/Ao 2D 1 0 - 1 MV Decel Time 165 msec EDV 2D 79.0 cm3 MV E/A 0.6 ESV 2D 17.2 cm3 TR Peak Mustapha 2.5 m/sec LA Dimen 2D 2.7 2.3 - 4.0 cm TR Peak PG 25.0 mmHg RVSP 40.0 mmHg Findings Left Ventricle: Normal left ventricular systolic function. Normal left ventricular cavity size. Normal left ventricular wall thickness. Ejection fraction is visually estimated at 55 %. Tissue Doppler/Mitral Doppler indices are consistent with impaired relaxation (Stage I diastolic dysfunction). Right Ventricle: Normal right ventricular size. Normal right ventricular systolic function. Left Atrium: The left atrium is normal in size. Right Atrium: The right atrium is normal in size. Mitral Valve: Mitral valve leaflets appear mildly thickened. Mild mitral annular calcification. Trace mitral regurgitation. Aortic Valve: No significant aortic stenosis or insufficiency. Aortic cusps appear mildly calcified. Tricuspid Valve: Normal appearance of the tricuspid valve. Estimated peak PA systolic pressure 40 mmHg. There is mild tricuspid regurgitation. Pulmonic Valve: Normal pulmonic valve appearance. Pericardium: Normal pericardium with no significant pericardial effusion. Aorta: Normal aortic root. IVC: Normal size and normal respiratory collapse consistent with normal right atrial pressure. Conclusions 1.Normal left ventricular systolic function. Normal left ventricular cavity size. Normal left ventricular wall thickness. Ejection fraction is visually estimated at 55 %. Tissue Doppler/Mitral Doppler indices are consistent with impaired relaxation (Stage I diastolic dysfunction). 2.Trace mitral regurgitation. 3.Normal appearance of the tricuspid valve. Estimated peak PA systolic pressure 40 mmHg. 4.There is mild tricuspid regurgitation. Electronically Signed By: Gabriel Lee 13-Jun-2016 23:04:19 -0800 Patient Name: CATHI KWON Study Date: 13-Jun-2016 [id number]
[2016-06-14] VITALS (13 sets, daily range): BP systolic 95–149; BP diastolic 60–69; PULSE 68–107; RESP 18–21
[2016-06-14] MEDS: ALBUTEROL/IPRATROPIUM (NEB) 3 ML AMP HHN SCH ×4 (02:16→21:03)
[2016-06-14] MEDS: PANTOPRAZOLE (EC) 40 MG TAB PO SCH (05:45)
[2016-06-14 08:07] LABS: ADD SCAN DIFF NO
[2016-06-14 08:12] LABS: ABNORMAL IP MESSAGE 1; BASOPHILS % 0.1 % (0.0-2.0); HEMATOCRIT 28.4 % (42.0-52.0); HEMOGLOBIN 8.1 g/dl (14.0-18.0); LYMPHOCYTES # 0.4 10^3/ul (0.8-2.9); LYMPHOCYTES % 5.2 % (15.0-51.0); MEAN CORPUSCULAR HEMOGLOBIN 22.4 pg (29.0-33.0); MEAN CORPUSCULAR HGB CONC 28.5 g/dl (32.0-37.0); MEAN CORPUSCULAR VOLUME 78.7 fl (82.0-101.0); MEAN PLATELET VOLUME 9.5 fl (7.4-10.4); MONOCYTE # 0.4 10^3/ul (0.3-0.9); MONOCYTES % 4.4 % (0.0-11.0); NEUTROPHIL # 7.4 10^3/ul (1.6-7.5); NEUTROPHILS % 86.8 % (39.0-77.0); NUCLEATED RED BLOOD CELLS% 0.5 /100WBC (0.0-0.0); PLATELET COUNT 219 10^3/UL (140-415); RED BLOOD COUNT 3.61 10^6/ul (4.70-6.10); RED CELL DISTRIBUTION WIDTH 18.9 % (11.5-14.5); WHITE BLOOD COUNT 8.5 10^3/ul (4.8-10.8)
[2016-06-14] MEDS: SALMETEROL/FLUTICASONE 250/50 INHA INH SCH ×2 (09:35→21:19)
[2016-06-14] MEDS: FAMOTIDINE 20 MG TAB PO SCH (09:36)
[2016-06-14] MEDS: TAMSULOSIN (SR) 0.4 MG CAP PO SCH (09:36)
[2016-06-14] MEDS: METHYLPREDNISOLONE 40 MG INJ IV SCH ×2 (09:36→21:20)
[2016-06-14] MEDS: ASPIRIN 81 MG TAB PO SCH (09:36)
[2016-06-14] MEDS: PAROXETINE 20 MG TAB PO SCH (09:36)
[2016-06-14] MEDS: TIOTROPIUM 18 MCG CAPSULE INHA DEV INH SCH (09:36)
[2016-06-14] MEDS: DILTIAZEM 30 MG TAB PO SCH ×2 (09:37→21:21)
[2016-06-14] MEDS: ENOXAPARIN 40 MG/0.4 ML SYG SC SCH (09:38)
[2016-06-14] MEDS: CEFEPIME 1GM/50 ML (PMX) 50 ML IVPB SCH ×2 (09:41→21:22)
[2016-06-14] MEDS: BRIMONIDINE 0.1% 5 ML OPH BOTH EYES SCH (10:47)
[2016-06-14] MEDS: FLUCONAZOLE 100 MG TAB PO SCH (10:48)
[2016-06-14] MEDS: ALPRAZOLAM 0.25 MG TAB PO PRN ×2 (11:10→21:21)
--- NOTE | 2016-06-14 14:08 | CONS ---
Date/Time of Note Date/Time of Note DATE: 06/14/16 TIME: 14:05 Assessment/Plan Assessment/Plan Additional Assessment/Plan 1. Tachyarrythmia-short run question AVNRT, atypical atrial flutter, less likely AVRT, possible atrial tachycardia.-NL TSH - in sinus now, will monitor closely. 2. Dyslipidemia. 3. Hypertension, labile - reasonable control overall. 4. Chronic obstructive pulmonary disease exacerbation- better now, con't COPD rX. 5. Increased BNP mildly, assess for congestive heart failure. 6. Psychiatric disorder. 7. Benign prostatic hypertrophy- stable, on therapy. 8. Possible bronchitis. Consultation Date/Type/Reason Admit Date/Time Jun 10, 2016 at 20:37 Initial Consult Date Type of Consultation: Cardiology Referring Provider: DEBBIE CRAWFORD MD 24 HR Interval Summary Free Text/Dictation NO acute change - BP in good range - will adjust therapy as needed. ROS: No fever, no chills, no nausea, no vomiting, no diarrhea/constipation No recent weight changes No chest pain, no PND, no orthopnea No dizziness, blurred vision No thirst, no heat or cold intolerance Exam/Review of Systems Vital Signs Vitals Vital Signs Date Time Temp Pulse Resp B/P Pulse Ox O2 Delivery O2 Flow Rate FiO2 06/14/16 12:17 97.7 108 20 105/62 98 06/14/16 09:47 Nasal Cannula 3.0 Intake and Output 06/13/16 06/13/16 06/14/16 15:00 23:00 07:00 Intake Total 50 ml 1250 ml 500 ml Output Total 1200 ml Balance 50 ml 50 ml 500 ml Exam General: WN/WD/NAD, AOx 2 HEENT: Unicetric/atraumatic/EOMI (follows commands) NECK: JVD elevated, no thyromegaly Lymph: no lymphadenopathy HEART: regular with no S3, II/ systolic murmur at apex LUNGS: Coarse sounds ABD: soft, NT, ND, +BS : Intact Neuro: non focal SKIN: chronic changes EXT: trace edema Results Result Diagram: 06/14/16 0740 06/12/16 0615 Results 24 hrs Laboratory Tests Test 06/13/16 18:40 06/14/16 00:55 06/14/16 07:40 Troponin I 0.013 0.011 Basophils # 0.0 Basophils % 0.1 Eosinophils # 0.0 Eosinophils % 0.0 Hematocrit 28.4 L Hemoglobin 8.1 L Lymphocytes # 0.4 L Lymphocytes % 5.2 L Mean Corpuscular Hemoglobin 22.4 L Mean Corpuscular Hemoglobin Concent 28.5 L Mean Corpuscular Volume 78.7 L Mean Platelet Volume 9.5 Monocytes # 0.4 Monocytes % 4.4 Neutrophils # 7.4 Neutrophils % 86.8 H Nucleated Red Blood Cells # 0.0 Nucleated Red Blood Cells % 0.5 H Platelet Count 219 Red Blood Count 3.61 L Red Cell Distribution Width 18.9 H White Blood Count 8.5 # Medications Medications Current Medications Aspirin (Aspirin) 81 mg DAILY PO Last administered on 06/14/16 09:36; Admin Dose 81 MG; Start 06/11/16 at 09:00 Brimonidine Tartrate (Alphagan P 0.1%) 1 drop DAILY BOTH EYES Last administered on 06/14/16 10:47; Admin Dose 1 DROP; Start 06/11/16 at 09:00 Paroxetine HCl (Paxil) 20 mg QAM PO Last administered on 06/14/16 09:36; Admin Dose 20 MG; Start 06/11/16 at 09:00 Salmeterol Xinafoate/ Fluticasone (Advair 250/50 Diskus) 1 inh BID INH Last administered on 06/14/16 09:35; Admin Dose 1 INH; Start 06/11/16 at 09:00 Tamsulosin HCl (Flomax) 0.4 mg daily PO Last administered on 06/14/16 09:36; Admin Dose 0.4 MG; Start 06/11/16 at 09:00 Tiotropium [place] (Spiriva) 1 inh DAILY INH Last administered on 06/14/16 09: 36; Admin Dose 1 INH; Start 06/11/16 at 09:00 Zolpidem Tartrate 10 mg 10 mg HS PRN PO INSOMNIA; Start 06/10/16 at 23:30 Cefepime HCl (Maxipime 1gm/50 ml (Pmx)) 50 ml @ 100 mls/hr Q12 IVPB Last administered on 06/14/16 09:41; Admin Dose 100 MLS/HR; Start 06/11/16 at 09:00 Enoxaparin Sodium (Lovenox) 40 mg DAILY SC Last administered on 06/14/16 09:38 ; Admin Dose 40 MG; Start 06/11/16 at 09:00 Acetaminophen (Tylenol Tab) 650 mg Q4H PRN PO PAIN AND OR ELEVATED TEMP; Start 06/10/16 at 23:30 Atorvastatin Calcium (Lipitor) 10 mg DAILY@21 PO Last administered on 22:06; Admin Dose 10 MG; Start 06/11/16 at 21:00 Latanoprost (Xalatan) 1 drop HS BOTH EYES Last administered on 06/13/16 22:06 ; Admin Dose 1 DROP; Start 06/11/16 at 21:00 Famotidine (Pepcid) 20 mg DAILY PO Last administered on 06/14/16 09:36; Admin Dose 20 MG; Start 06/11/16 at 11:30 Alprazolam (Xanax) 0.5 mg Q8H PRN PO ANXIETY Last administered on 06/14/16 11: 10; Admin Dose 0.5 MG; Start 06/11/16 at 12:00 Methylprednisolone Sodium Succinate (Solu-Medrol) 40 mg Q12 IV Last administered on 06/14/16 09:36; Admin Dose 40 MG; Start 06/11/16 at 21:00 Pantoprazole (Protonix Tab) 40 mg DAILY@06 PO Last administered on 06/14/16 05 :45; Admin Dose 40 MG; Start 06/14/16 at 06:00 Diltiazem HCl (Cardizem) 30 mg Q12 PO Last administered on 06/14/16 09:37; Admin Dose 30 MG; Start 06/13/16 at 21:00 Fluconazole (Diflucan) 100 mg DAILY PO Last administered on 06/14/16 10:48; Admin Dose 100 MG; Start 06/14/16 at 10:00 ALBERTO SCHNEIDER MD Jun 14, 2016 14:07
--- NOTE | 2016-06-14 14:49 | PN ---
DATE: 06/14/2016 SUBJECTIVE: The patient is feeling slightly better, still short of breath, still feeling very weak. No palpitations, no chest pain. OBJECTIVE: VITAL SIGNS: Temperature 97.8, pulse 80, max pulse was 93, respirations 20, blood pressure 140/69, oxygen saturation 100% on 2 liters. GENERAL: Well-developed male with mild shortness of breath, talking, lying in bed. LUNGS: Decreased breath sounds bilaterally with coarse rhonchi and end-expiratory wheezing. CARDIOVASCULAR: Regular rate and rhythm. ABDOMEN: Soft, nontender. EXTREMITIES: No cyanosis, clubbing or edema. LABORATORY EXAMINATION: Troponin 0.013 and troponin of 0.011. Hemoglobin of 8.1, hematocrit of 28. 4, white blood cell count 8.5, platelets 219. Microbiology: Respiratory culture, sputum culture sh ows normal respiratory beba with 2+ Zohra albicans. ASSESSMENT AND PLAN 1. Chronic bronchitis with acute exacerbation. Patient remains weak, short of breath, and will con tinue with inpatient care. Patient will remain on IV antibiotics. Will also add fluconazole, as cipriano weinberg has 2+ Zohra. 2. Supraventricular tachycardia. Echocardiogram shows normal heart function. No other irregularit ies that are significant. Will remain on diltiazem at this point and adjust as needed. Will contin ue with telemetry. 3. Anemia. This remained stable. The patient has iron deficiency and will continue to watch the o ccult blood in the stool. 4. Benign prostatic hypertrophy. Continue with medications. 5. Glaucoma. Continue with medications. 6. Hyperlipidemia. Continue with diet and medications. Dictated By: CAROLYNE PARMAR MD SR/VICKI Conf#: [id number] DID#: [id number]
[2016-06-14 15:59] LABS: FOLATE > 20.0 ng/ml (2.8-20.0)
[2016-06-14] MEDS: LATANOPROST 0.005% 2.5 ML OPH BOTH EYES SCH (21:19)
[2016-06-14] MEDS: ATORVASTATIN 10 MG TAB PO SCH (21:21)
[2016-06-15] VITALS (11 sets, daily range): BP systolic 101–135; BP diastolic 61–69; PULSE 80–109; RESP 19–20
[2016-06-15] MEDS: ALBUTEROL/IPRATROPIUM (NEB) 3 ML AMP HHN SCH ×4 (02:18→21:28)
[2016-06-15] MEDS: PANTOPRAZOLE (EC) 40 MG TAB PO SCH (05:56)
[2016-06-15 07:48] LABS: ADD SCAN DIFF NO
[2016-06-15 08:02] LABS: POTASSIUM 4.4 mmol/L (3.5-5.1)
[2016-06-15 08:04] LABS: CREATININE 0.65 mg/dl (0.61-1.24)
[2016-06-15 08:05] LABS: CALCIUM 8.4 mg/dl (8.4-10.2)
[2016-06-15 09:12] LABS: ABNORMAL IP MESSAGE 1; BASOPHILS % 0.2 % (0.0-2.0); HEMATOCRIT 30.1 % (42.0-52.0); HEMOGLOBIN 8.4 g/dl (14.0-18.0); LYMPHOCYTES # 0.3 10^3/ul (0.8-2.9); LYMPHOCYTES % 3.1 % (15.0-51.0); MEAN CORPUSCULAR HEMOGLOBIN 22.4 pg (29.0-33.0); MEAN CORPUSCULAR HGB CONC 27.9 g/dl (32.0-37.0); MEAN CORPUSCULAR VOLUME 80.3 fl (82.0-101.0); MONOCYTE # 0.4 10^3/ul (0.3-0.9); NEUTROPHIL # 9.5 10^3/ul (1.6-7.5); NUCLEATED RED BLOOD CELLS # 0.1 10^3/ul (0.0-0.0); NUCLEATED RED BLOOD CELLS% 0.9 /100WBC (0.0-0.0); PLATELET COUNT 235 10^3/UL (140-415); RED BLOOD COUNT 3.75 10^6/ul (4.70-6.10); RED CELL DISTRIBUTION WIDTH 19.5 % (11.5-14.5); WHITE BLOOD COUNT 10.8 10^3/ul (4.8-10.8)
[2016-06-15] MEDS: TAMSULOSIN (SR) 0.4 MG CAP PO SCH (09:52)
[2016-06-15] MEDS: SALMETEROL/FLUTICASONE 250/50 INHA INH SCH ×2 (09:52→21:12)
[2016-06-15] MEDS: ASPIRIN 81 MG TAB PO SCH (09:52)
[2016-06-15] MEDS: METHYLPREDNISOLONE 40 MG INJ IV SCH ×2 (09:52→21:11)
[2016-06-15] MEDS: BRIMONIDINE 0.1% 5 ML OPH BOTH EYES SCH (09:52)
[2016-06-15] MEDS: DILTIAZEM 30 MG TAB PO SCH ×2 (09:53→21:13)
[2016-06-15] MEDS: FLUCONAZOLE 100 MG TAB PO SCH (09:53)
[2016-06-15] MEDS: FAMOTIDINE 20 MG TAB PO SCH (09:53)
[2016-06-15] MEDS: ENOXAPARIN 40 MG/0.4 ML SYG SC SCH (09:55)
[2016-06-15] MEDS: CEFEPIME 1GM/50 ML (PMX) 50 ML IVPB SCH ×2 (09:56→21:12)
[2016-06-15] MEDS: TIOTROPIUM 18 MCG CAPSULE INHA DEV INH SCH (09:56)
[2016-06-15] MEDS: PAROXETINE 20 MG TAB PO SCH (09:57)
--- NOTE | 2016-06-15 15:58 | CONS ---
Date/Time of Note Date/Time of Note DATE: 06/15/16 TIME: 15:56 Assessment/Plan Assessment/Plan Additional Assessment/Plan 1. Tachyarrythmia-short runs - per tele - a. tach vs MAT is most likely - NL TSH - in sinus now, will monitor closely. If tolerates, BB advisable to moderate dose. 2. Dyslipidemia. 3. Hypertension, labile - reasonable control overall. BETTER now. 4. Chronic obstructive pulmonary disease exacerbation- better now, con't COPD rX. 5. Increased BNP mildly, assess for congestive heart failure. 6. Psychiatric disorder. 7. Benign prostatic hypertrophy- stable, on therapy. 8. Possible bronchitis- on anti-bx. Consultation Date/Type/Reason Admit Date/Time Jun 10, 2016 at 20:37 Type of Consultation: Cardiology Referring Provider: DEBBIE CRAWFORD MD 24 HR Interval Summary Free Text/Dictation Tachyarrythmia-short runs - per tele - a. tach vs MAT is most likely - NL TSH - in sinus now, will monitor closely. If tolerates, BB advisable to moderate dose. ROS: No fever, no chills, no nausea, no vomiting, no diarrhea/constipation No recent weight changes No chest pain, no PND, no orthopnea No dizziness, blurred vision No thirst, no heat or cold intolerance Exam/Review of Systems Vital Signs Vitals Vital Signs Date Time Temp Pulse Resp B/P Pulse Ox O2 Delivery O2 Flow Rate FiO2 06/15/16 15:51 97.9 100 20 101/61 95 06/15/16 15:02 2.0 06/15/16 13:22 Nasal Cannula Intake and Output 06/14/16 06/14/16 06/15/16 15:00 23:00 07:00 Intake Total 50 ml 900 ml 550 ml Output Total 850 ml Balance 50 ml 50 ml 550 ml Exam General: WN/WD/NAD, AOx 2-3 HEENT: Unicetric/atraumatic/EOMI (follow commands) NECK: JVD elevated, no thyromegaly Lymph: no lymphadenopathy HEART: regular with no S3, II/ systolic murmur at apex LUNGS: Coarse sounds ABD: soft, NT, ND, +BS : Intact Neuro: non focal SKIN: chronic changes EXT: trace edema Results Result Diagram: 06/15/16 0600 06/15/16 0600 Results 24 hrs Laboratory Tests Test 06/15/16 06:00 Anion Gap 10 Basophils # 0.0 Basophils % 0.2 Blood Urea Nitrogen 20 Calcium Level 8.4 Carbon Dioxide Level 35 H Chloride Level 99 Creatinine 0.65 Eosinophils # 0.0 Eosinophils % 0.0 Glucose Level 143 Hematocrit 30.1 L Hemoglobin 8.4 L Lymphocytes # 0.3 L Lymphocytes % 3.1 L Mean Corpuscular Hemoglobin 22.4 L Mean Corpuscular Hemoglobin Concent 27.9 L Mean Corpuscular Volume 80.3 L Mean Platelet Volume 10.0 Monocytes # 0.4 Monocytes % 4.0 Neutrophils # 9.5 H Neutrophils % 88.0 H Nucleated Red Blood Cells # 0.1 H Nucleated Red Blood Cells % 0.9 H Platelet Count 235 Potassium Level 4.4 Red Blood Count 3.75 L Red Cell Distribution Width 19.5 H Sodium Level 140 White Blood Count 10.8 # Medications Medications Current Medications Aspirin (Aspirin) 81 mg DAILY PO Last administered on 06/15/16 09:52; Admin Dose 81 MG; Start 06/11/16 at 09:00 Brimonidine Tartrate (Alphagan P 0.1%) 1 drop DAILY BOTH EYES Last administered on 06/15/16 09:52; Admin Dose 1 DROP; Start 06/11/16 at 09:00 Paroxetine HCl (Paxil) 20 mg QAM PO Last administered on 06/15/16 09:57; Admin Dose 20 MG; Start 06/11/16 at 09:00 Salmeterol Xinafoate/ Fluticasone (Advair 250/50 Diskus) 1 inh BID INH Last administered on 06/15/16 09:52; Admin Dose 1 INH; Start 06/11/16 at 09:00 Tamsulosin HCl (Flomax) 0.4 mg daily PO Last administered on 06/15/16 09:52; Admin Dose 0.4 MG; Start 06/11/16 at 09:00 Tiotropium [place] (Spiriva) 1 inh DAILY INH Last administered on 06/15/16 09: 56; Admin Dose 1 INH; Start 06/11/16 at 09:00 Zolpidem Tartrate 10 mg 10 mg HS PRN PO INSOMNIA; Start 06/10/16 at 23:30 Cefepime HCl (Maxipime 1gm/50 ml (Pmx)) 50 ml @ 100 mls/hr Q12 IVPB Last administered on 06/15/16 09:56; Admin Dose 100 MLS/HR; Start 06/11/16 at 09:00 Enoxaparin Sodium (Lovenox) 40 mg DAILY SC Last administered on 06/15/16 09:55 ; Admin Dose 40 MG; Start 06/11/16 at 09:00 Acetaminophen (Tylenol Tab) 650 mg Q4H PRN PO PAIN AND OR ELEVATED TEMP; Start 06/10/16 at 23:30 Atorvastatin Calcium (Lipitor) 10 mg DAILY@21 PO Last administered on 21:21; Admin Dose 10 MG; Start 06/11/16 at 21:00 Latanoprost (Xalatan) 1 drop HS BOTH EYES Last administered on 06/14/16 21:19 ; Admin Dose 1 DROP; Start 06/11/16 at 21:00 Famotidine (Pepcid) 20 mg DAILY PO Last administered on 06/15/16 09:53; Admin Dose 20 MG; Start 06/11/16 at 11:30 Alprazolam (Xanax) 0.5 mg Q8H PRN PO ANXIETY Last administered on 06/14/16 21: 21; Admin Dose 0.5 MG; Start 06/11/16 at 12:00 Methylprednisolone Sodium Succinate (Solu-Medrol) 40 mg Q12 IV Last administered on 06/15/16 09:52; Admin Dose 40 MG; Start 06/11/16 at 21:00 Pantoprazole (Protonix Tab) 40 mg DAILY@06 PO Last administered on 06/15/16 05 :56; Admin Dose 40 MG; Start 06/14/16 at 06:00 Diltiazem HCl (Cardizem) 30 mg Q12 PO Last administered on 06/15/16 09:53; Admin Dose 30 MG; Start 06/13/16 at 21:00 Fluconazole (Diflucan) 100 mg DAILY PO Last administered on 06/15/16 09:53; Admin Dose 100 MG; Start 06/14/16 at 10:00 ALBERTO SCHNEIDER MD Jun 15, 2016 15:57
[2016-06-15] MEDS: LATANOPROST 0.005% 2.5 ML OPH BOTH EYES SCH (21:12)
[2016-06-15] MEDS: ATORVASTATIN 10 MG TAB PO SCH (21:12)
[2016-06-15] MEDS: ALPRAZOLAM 0.25 MG TAB PO PRN (21:12)
[2016-06-16] VITALS (12 sets, daily range): BP systolic 103–124; BP diastolic 52–70; PULSE 66–80; RESP 18–20
[2016-06-16] MEDS: ALBUTEROL/IPRATROPIUM (NEB) 3 ML AMP HHN SCH ×4 (02:31→21:16)
--- NOTE | 2016-06-16 04:38 | PN ---
DATE: 06/15/2016 SUBJECTIVE: Follow up on COPD exacerbation, transient atrial tachycardia versus multifocal atrial t achycardia, and hypertension. The patient stated that shortness of breath has improved. No chest p ain, no reported fever or chills. The patient is not orthopneic. OBJECTIVE: GENERAL: The patient is conscious, awake, alert. VITAL SIGNS: Temperature 98.8, pulse 104, respirations 20, blood pressure 103/61, O2 saturation 98% on 2 liters nasal cannula. HEENT: No eye discharge or redness. Oropharynx clear. NECK: No mass. CHEST: Revealed diminished air entry. No use of accessory muscles. CARDIOVASCULAR: S1, S2 normal. No murmur. ABDOMEN: Soft, nondistended, nontender. EXTREMITIES: No edema or cyanosis. NEUROLOGIC: The patient is awake, alert, follows simple commands. IMPRESSION: 1. Chronic obstructive pulmonary disease exacerbation. Continue IV cefepime and breathing treatmen t. I will reduce the dose of Solu-Medrol to 40 once a day. Continue Advair and Spiriva. 2. Atrial tachycardia versus multifocal atrial tachycardia. The patient is currently in sinus rhyt hm. Continue aspirin. 3. Hypertension. Blood pressure well controlled. Continue diltiazem and Coreg. 4. Positive sputum for Zohra. Continue Diflucan. 5. Meanwhile, continue Lovenox for DVT prophylaxis. Dictated By: DEBBIE CALDERON/VICKI Conf#: [id number] DID#: [id number]
[2016-06-16] MEDS: PANTOPRAZOLE (EC) 40 MG TAB PO SCH (06:05)
[2016-06-16] MEDS ORDERED: METHYLPREDNISOLONE 40 MG INJ IV SCH (09:00)
[2016-06-16] MEDS: METHYLPREDNISOLONE 40 MG INJ IV SCH (09:15)
[2016-06-16] MEDS: ASPIRIN 81 MG TAB PO SCH (09:16)
[2016-06-16] MEDS: DILTIAZEM 30 MG TAB PO SCH ×2 (09:16→21:04)
[2016-06-16] MEDS: PAROXETINE 20 MG TAB PO SCH (09:16)
[2016-06-16] MEDS: FAMOTIDINE 20 MG TAB PO SCH (09:16)
[2016-06-16] MEDS: TAMSULOSIN (SR) 0.4 MG CAP PO SCH (09:17)
[2016-06-16] MEDS: SALMETEROL/FLUTICASONE 250/50 INHA INH SCH ×2 (09:17→21:03)
[2016-06-16] MEDS: BRIMONIDINE 0.1% 5 ML OPH BOTH EYES SCH (09:22)
[2016-06-16] MEDS: CEFEPIME 1GM/50 ML (PMX) 50 ML IVPB SCH ×2 (09:22→21:02)
[2016-06-16] MEDS: ENOXAPARIN 40 MG/0.4 ML SYG SC SCH (09:33)
[2016-06-16] MEDS: FLUCONAZOLE 100 MG TAB PO SCH (12:11)
[2016-06-16] MEDS: TIOTROPIUM 18 MCG CAPSULE INHA DEV INH SCH (12:12)
[2016-06-16] MEDS: SOD FERRIC GLUC COMPLX 125 MG in SOD CHLORIDE 0.9% 100 ML IVPB SCH (15:14)
--- NOTE | 2016-06-16 15:36 | PN ---
DATE: 06/16/2016 SUBJECTIVE: Follow up on COPD exacerbation, anemia, paroxysmal atrial fibrillation, hypertension. Patient has remained in sinus rhythm since this morning. No reported chest pain. The patient repor ts improvement in his shortness of breath. Patient does have occasional dry cough. No reported ble eding from any site. Patient has not had any temperature spike. PHYSICAL EXAMINATION: GENERAL: The patient is conscious, awake, alert. VITAL SIGNS: Temperature 98, pulse 77, respirations 19, blood pressure 109/65, O2 saturation 94% on 2 liters nasal cannula. HEENT: Oropharynx clear. NECK: No mass, no JVD. CHEST: Bilateral rhonchi. No active wheezing. CARDIOVASCULAR: S1, S2 normal. Regular rate and rhythm. ABDOMEN: Soft, nontender, nondistended. EXTREMITIES: No edema. SKIN: Without acute rash. NEUROLOGIC: The patient is awake, alert, fairly oriented. ASSESSMENT AND PLAN: 1. Chronic obstructive pulmonary disease. The patient's Solu-Medrol has been reduced to 40 mg once a day. We will continue breathing treatment, Spiriva, as well as Advair. 2. Paroxysmal atrial fibrillation. The patient remains on Cardizem and Coreg. Currently in sinus rhythm. Continue to monitor him on tele. Patient remains on aspirin for seizure prophylaxis. 3. Anemia. The patient reports that he has anemia for a long time, and he has family history of an emia, but he could not describe etiology. The patient did have a colonoscopy approximately 6 to 7 y ears ago, but could not remember the results. Stool OB pending. Serum iron level is low. Will orde r ferritin. Vitamin B12, folic acid, and TSH are within normal limits. Percent saturation is only 6. Hemoglobin is down to 8.4. We will start him on IV Ferrlecit, and patient would benefit from GI workup as an outpatient. Retic count was 2.2. Will order LDH. Dr. Vikram Frank will resume his care from tomorrow. Dictated By: DEBBIE CALDERON/VICKI Conf#: [id number] DID#: [id number]
--- NOTE | 2016-06-16 16:33 | CONS ---
Date/Time of Note Date/Time of Note DATE: 06/16/16 TIME: 16:30 Assessment/Plan Assessment/Plan Additional Assessment/Plan 1. Tachyarrythmia-short runs - per tele - a. tach vs MAT is most likely - NL TSH - in sinus now, will monitor closely. If tolerates, BB advisable to moderate dose - overall rate well controlled. 2. Dyslipidemia. 3. Hypertension, labile - reasonable control overall. BETTER now. Con't Med rx 4. Chronic obstructive pulmonary disease exacerbation- better now, con't COPD rX. 5. Increased BNP mildly, assess for congestive heart failure- better fluid status now. 6. Psychiatric disorder. 7. Benign prostatic hypertrophy- stable, on therapy. 8. Possible bronchitis- on anti-bx- Rx as needed. Consultation Date/Type/Reason Admit Date/Time Jun 10, 2016 at 20:37 Type of Consultation: Cardiology Referring Provider: DEBBIE CRAWFORD MD 24 HR Interval Summary Free Text/Dictation NO acute change - BP stable - intermittent a. tach - con't med rx. ROS: No fever, no chills, no nausea, no vomiting, no diarrhea/constipation No recent weight changes No chest pain, no PND, no orthopnea No dizziness, blurred vision No thirst, no heat or cold intolerance Exam/Review of Systems Vital Signs Vitals Vital Signs Date Time Temp Pulse Resp B/P Pulse Ox O2 Delivery O2 Flow Rate FiO2 06/16/16 16:16 66 06/16/16 15:39 98.1 19 103/52 95 06/16/16 13:27 Nasal Cannula 2.0 Intake and Output 06/15/16 06/15/16 06/16/16 15:00 23:00 07:00 Intake Total 50 ml 850 ml 150 ml Output Total 700 ml 550 ml Balance 50 ml 150 ml -400 ml Exam General: WN/WD/NAD, AOx 3 HEENT: Unicetric/atraumatic/EOMI (follows commands) NECK: JVD elevated, no thyromegaly Lymph: no lymphadenopathy HEART: regular with no S3, II/ systolic murmur at apex LUNGS: Coarse sounds ABD: soft, NT, ND, +BS : Intact Neuro: non focal SKIN: chronic changes EXT: trace edema Results Result Diagram: 06/15/16 0600 06/15/16 0600 Medications Medications Current Medications Aspirin (Aspirin) 81 mg DAILY PO Last administered on 06/16/16 09:16; Admin Dose 81 MG; Start 06/11/16 at 09:00 Brimonidine Tartrate (Alphagan P 0.1%) 1 drop DAILY BOTH EYES Last administered on 06/16/16 09:22; Admin Dose 1 DROP; Start 06/11/16 at 09:00 Paroxetine HCl (Paxil) 20 mg QAM PO Last administered on 06/16/16 09:16; Admin Dose 20 MG; Start 06/11/16 at 09:00 Salmeterol Xinafoate/ Fluticasone (Advair 250/50 Diskus) 1 inh BID INH Last administered on 06/16/16 09:17; Admin Dose 1 INH; Start 06/11/16 at 09:00 Tamsulosin HCl (Flomax) 0.4 mg daily PO Last administered on 06/16/16 09:17; Admin Dose 0.4 MG; Start 06/11/16 at 09:00 Tiotropium [place] (Spiriva) 1 inh DAILY INH Last administered on 06/16/16 12: 12; Admin Dose 1 INH; Start 06/11/16 at 09:00 Zolpidem Tartrate 10 mg 10 mg HS PRN PO INSOMNIA; Start 06/10/16 at 23:30 Cefepime HCl (Maxipime 1gm/50 ml (Pmx)) 50 ml @ 100 mls/hr Q12 IVPB Last administered on 06/16/16 09:22; Admin Dose 100 MLS/HR; Start 06/11/16 at 09:00 Enoxaparin Sodium (Lovenox) 40 mg DAILY SC Last administered on 06/16/16 09:33 ; Admin Dose 40 MG; Start 06/11/16 at 09:00 Acetaminophen (Tylenol Tab) 650 mg Q4H PRN PO PAIN AND OR ELEVATED TEMP; Start 06/10/16 at 23:30 Atorvastatin Calcium (Lipitor) 10 mg DAILY@21 PO Last administered on 21:12; Admin Dose 10 MG; Start 06/11/16 at 21:00 Latanoprost (Xalatan) 1 drop HS BOTH EYES Last administered on 06/15/16 21:12 ; Admin Dose 1 DROP; Start 06/11/16 at 21:00 Famotidine (Pepcid) 20 mg DAILY PO Last administered on 06/16/16 09:16; Admin Dose 20 MG; Start 06/11/16 at 11:30 Alprazolam (Xanax) 0.5 mg Q8H PRN PO ANXIETY Last administered on 06/15/16 21: 12; Admin Dose 0.5 MG; Start 06/11/16 at 12:00 Pantoprazole (Protonix Tab) 40 mg DAILY@06 PO Last administered on 06/16/16 06 :05; Admin Dose 40 MG; Start 06/14/16 at 06:00 Diltiazem HCl (Cardizem) 30 mg Q12 PO Last administered on 06/16/16 09:16; Admin Dose 30 MG; Start 06/13/16 at 21:00 Fluconazole (Diflucan) 100 mg DAILY PO Last administered on 06/16/16 12:11; Admin Dose 100 MG; Start 06/14/16 at 10:00 Carvedilol 12.5 mg 12.5 mg BID PO Last administered on 06/16/16 09:16; Admin Dose 12.5 MG; Start 06/15/16 at 21:00 Ferric Sodium Gluconate Complex/ Sodium Chloride (Ferrlecit/NS) 110 ml @ 100 mls/hr Q24H IVPB Last administered on 06/16/16 15:14; Admin Dose 100 MLS/HR; Start 06/16/16 at 14:30; Stop 06/18/16 at 15:35 Methylprednisolone Sodium Succinate (Solu-Medrol) 40 mg QAM IV ; Start 06/17/16 at 09:00 ALBERTO SCHNEIDER MD Jun 16, 2016 16:33
[2016-06-16] MEDS: ATORVASTATIN 10 MG TAB PO SCH (21:02)
[2016-06-16] MEDS: LATANOPROST 0.005% 2.5 ML OPH BOTH EYES SCH (21:02)
[2016-06-16] MEDS: ALPRAZOLAM 0.25 MG TAB PO PRN (21:02)
[2016-06-17] VITALS (12 sets, daily range): BP systolic 109–170; BP diastolic 57–77; PULSE 50–76; RESP 18
[2016-06-17] MEDS: ALBUTEROL/IPRATROPIUM (NEB) 3 ML AMP HHN SCH ×4 (02:50→19:58)
[2016-06-17] MEDS: PANTOPRAZOLE (EC) 40 MG TAB PO SCH (06:31)
[2016-06-17 06:59] LABS: ADD SCAN DIFF NO
[2016-06-17 07:03] LABS: ABNORMAL IP MESSAGE 1; BASOPHILS % 0.2 % (0.0-2.0); HEMATOCRIT 29.8 % (42.0-52.0); HEMOGLOBIN 8.5 g/dl (14.0-18.0); LYMPHOCYTES # 0.5 10^3/ul (0.8-2.9); LYMPHOCYTES % 4.1 % (15.0-51.0); MEAN CORPUSCULAR HEMOGLOBIN 22.7 pg (29.0-33.0); MEAN CORPUSCULAR HGB CONC 28.5 g/dl (32.0-37.0); MEAN CORPUSCULAR VOLUME 79.5 fl (82.0-101.0); MEAN PLATELET VOLUME 9.9 fl (7.4-10.4); MONOCYTE # 0.6 10^3/ul (0.3-0.9); MONOCYTES % 4.6 % (0.0-11.0); NEUTROPHIL # 11.2 10^3/ul (1.6-7.5); NEUTROPHILS % 86.4 % (39.0-77.0); NUCLEATED RED BLOOD CELLS # 0.2 10^3/ul (0.0-0.0); NUCLEATED RED BLOOD CELLS% 1.3 /100WBC (0.0-0.0); PLATELET COUNT 235 10^3/UL (140-415); RED BLOOD COUNT 3.75 10^6/ul (4.70-6.10)
[2016-06-17 07:23] LABS: IRON 299 ug/dl (35-150)
[2016-06-17 07:32] LABS: TOTAL IRON BINDING CAPACITY 324 ug/dl (241-421)
--- NOTE | 2016-06-17 08:33 | CONS ---
Date/Time of Note Date/Time of Note DATE: 06/17/16 TIME: 08:32 Assessment/Plan Assessment/Plan Additional Assessment/Plan 1. Tachyarrythmia-short runs - per tele - a. tach vs MAT is most likely - NL TSH - in sinus now, will monitor closely. If tolerates, BB advisable to moderate dose - overall rate well controlled. 2. Dyslipidemia. 3. Hypertension, labile - reasonable control overall. BETTER now. Con't Med rx WILL ADD ARB now. 4. Chronic obstructive pulmonary disease exacerbation- better now, con't COPD rX. BETTER today. 5. Increased BNP mildly, assess for congestive heart failure- better fluid status now. 6. Psychiatric disorder. 7. Benign prostatic hypertrophy- stable, on therapy. 8. Possible bronchitis- on anti-bx- Rx as needed. Consultation Date/Type/Reason Admit Date/Time Jun 10, 2016 at 20:37 Type of Consultation: Cardiology Referring Provider: DEBBIE CRAWFORD MD 24 HR Interval Summary Free Text/Dictation No acute change - BP high - will adjust Rx - add ARB now. ROS: No fever, no chills, no nausea, no vomiting, no diarrhea/constipation No recent weight changes No chest pain, no PND, no orthopnea No dizziness, blurred vision No thirst, no heat or cold intolerance Exam/Review of Systems Vital Signs Vitals Vital Signs Date Time Temp Pulse Resp B/P Pulse Ox O2 Delivery O2 Flow Rate FiO2 06/17/16 08:09 98.2 72 18 170/77 94 06/17/16 07:25 Nasal Cannula 2.0 Intake and Output 06/16/16 06/16/16 06/17/16 15:00 23:00 07:00 Intake Total 50 ml 1060 ml Output Total 750 ml Balance 50 ml 310 ml Exam General: WN/WD/NAD, AOx 2-3 HEENT: Unicetric/atraumatic/EOMI (follows commands) NECK: JVD elevated, no thyromegaly Lymph: no lymphadenopathy HEART: regular with no S3, II/ systolic murmur at apex LUNGS: Coarse sounds ABD: soft, NT, ND, +BS : Intact Neuro: non focal SKIN: chronic changes EXT: trace edema Results Result Diagram: 06/17/16 0612 06/15/16 0600 Results 24 hrs Laboratory Tests Test 06/17/16 06:12 Basophils # 0.0 Basophils % 0.2 Eosinophils # 0.0 Eosinophils % 0.0 Hematocrit 29.8 L Hemoglobin 8.5 L Iron Level 299 H Lymphocytes # 0.5 L Lymphocytes % 4.1 L Mean Corpuscular Hemoglobin 22.7 L Mean Corpuscular Hemoglobin Concent 28.5 L Mean Corpuscular Volume 79.5 L Mean Platelet Volume 9.9 Monocytes # 0.6 Monocytes % 4.6 Neutrophils # 11.2 H Neutrophils % 86.4 H Nucleated Red Blood Cells # 0.2 H Nucleated Red Blood Cells % 1.3 H Percent Iron Saturation 92 H Platelet Count 235 Red Blood Count 3.75 L Red Cell Distribution Width 19.0 H Total Iron Binding Capacity 324 White Blood Count 13.0 #H Medications Medications Current Medications Aspirin (Aspirin) 81 mg DAILY PO Last administered on 06/16/16 09:16; Admin Dose 81 MG; Start 06/11/16 at 09:00 Brimonidine Tartrate (Alphagan P 0.1%) 1 drop DAILY BOTH EYES Last administered on 06/16/16 09:22; Admin Dose 1 DROP; Start 06/11/16 at 09:00 Paroxetine HCl (Paxil) 20 mg QAM PO Last administered on 06/16/16 09:16; Admin Dose 20 MG; Start 06/11/16 at 09:00 Salmeterol Xinafoate/ Fluticasone (Advair 250/50 Diskus) 1 inh BID INH Last administered on 06/16/16 21:03; Admin Dose 1 INH; Start 06/11/16 at 09:00 Tamsulosin HCl (Flomax) 0.4 mg daily PO Last administered on 06/16/16 09:17; Admin Dose 0.4 MG; Start 06/11/16 at 09:00 Tiotropium [place] (Spiriva) 1 inh DAILY INH Last administered on 06/16/16 12: 12; Admin Dose 1 INH; Start 06/11/16 at 09:00 Zolpidem Tartrate 10 mg 10 mg HS PRN PO INSOMNIA; Start 06/10/16 at 23:30 Cefepime HCl (Maxipime 1gm/50 ml (Pmx)) 50 ml @ 100 mls/hr Q12 IVPB Last administered on 06/16/16 21:02; Admin Dose 100 MLS/HR; Start 06/11/16 at 09:00 Enoxaparin Sodium (Lovenox) 40 mg DAILY SC Last administered on 06/16/16 09:33 ; Admin Dose 40 MG; Start 06/11/16 at 09:00 Acetaminophen (Tylenol Tab) 650 mg Q4H PRN PO PAIN AND OR ELEVATED TEMP; Start 06/10/16 at 23:30 Atorvastatin Calcium (Lipitor) 10 mg DAILY@21 PO Last administered on 21:02; Admin Dose 10 MG; Start 06/11/16 at 21:00 Latanoprost (Xalatan) 1 drop HS BOTH EYES Last administered on 06/16/16 21:02 ; Admin Dose 1 DROP; Start 06/11/16 at 21:00 Famotidine (Pepcid) 20 mg DAILY PO Last administered on 06/16/16 09:16; Admin Dose 20 MG; Start 06/11/16 at 11:30 Alprazolam (Xanax) 0.5 mg Q8H PRN PO ANXIETY Last administered on 06/16/16 21: 02; Admin Dose 0.5 MG; Start 06/11/16 at 12:00 Pantoprazole (Protonix Tab) 40 mg DAILY@06 PO Last administered on 06/17/16 06 :31; Admin Dose 40 MG; Start 06/14/16 at 06:00 Diltiazem HCl (Cardizem) 30 mg Q12 PO Last administered on 06/16/16 21:04; Admin Dose 30 MG; Start 06/13/16 at 21:00 Fluconazole (Diflucan) 100 mg DAILY PO Last administered on 06/16/16 12:11; Admin Dose 100 MG; Start 06/14/16 at 10:00 Carvedilol 12.5 mg 12.5 mg BID PO Last administered on 06/16/16 21:04; Admin Dose 12.5 MG; Start 06/15/16 at 21:00 Ferric Sodium Gluconate Complex/ Sodium Chloride (Ferrlecit/NS) 110 ml @ 100 mls/hr Q24H IVPB Last administered on 06/16/16 15:14; Admin Dose 100 MLS/HR; Start 06/16/16 at 14:30; Stop 06/18/16 at 15:35 Methylprednisolone Sodium Succinate (Solu-Medrol) 40 mg QAM IV ; Start 06/17/16 at 09:00 ALBERTO SCHNEIDER MD Jun 17, 2016 08:33
[2016-06-17] MEDS: SALMETEROL/FLUTICASONE 250/50 INHA INH SCH ×2 (08:55→20:43)
[2016-06-17] MEDS: CEFEPIME 1GM/50 ML (PMX) 50 ML IVPB SCH ×2 (08:55→21:03)
[2016-06-17] MEDS: BRIMONIDINE 0.1% 5 ML OPH BOTH EYES SCH (08:55)
[2016-06-17] MEDS: FLUCONAZOLE 100 MG TAB PO SCH (08:56)
[2016-06-17] MEDS: DILTIAZEM 30 MG TAB PO SCH ×2 (08:56→20:43)
[2016-06-17] MEDS: ASPIRIN 81 MG TAB PO SCH (08:56)
[2016-06-17] MEDS: FAMOTIDINE 20 MG TAB PO SCH (08:56)
[2016-06-17] MEDS: METHYLPREDNISOLONE 40 MG INJ IV SCH (08:56)
[2016-06-17] MEDS: TIOTROPIUM 18 MCG CAPSULE INHA DEV INH SCH (08:56)
[2016-06-17] MEDS: PAROXETINE 20 MG TAB PO SCH (08:56)
[2016-06-17] MEDS: TAMSULOSIN (SR) 0.4 MG CAP PO SCH (08:57)
[2016-06-17] MEDS: ENOXAPARIN 40 MG/0.4 ML SYG SC SCH (09:08)
[2016-06-17] MEDS: LOSARTAN 50 MG TAB PO SCH ×2 (09:58→20:42)
--- NOTE | 2016-06-17 10:59 | SP ---
MEDICAL PROGRESS NOTE: DATE OF VISIT: 06/17/2016 SUBJECTIVE: The patient is feeling slightly better but still with moderate shortness of breath with minimal activity. Otherwise, no complaints. OBJECTIVE: VITAL SIGNS: Blood pressure is 170/77, heart rate 63 to 75, respirations 18, oxygen saturation 94% on 2 liters nasal cannula oxygen. GENERAL: Well-developed, well-nourished male in no acute distress, lying in bed. LUNGS: Decreased breath sounds bilateral bases with coarse rhonchi and expiratory wheezing. HEART: Regular rate and rhythm with occasional ectopy. ABDOMEN: Soft, nontender, normoactive bowel sounds. EXTREMITIES: No cyanosis, clubbing or edema. NEUROLOGIC: Nonfocal. LABORATORY DATA: Iron is 299. TIBC is 324, oxygen saturation 92%, ferritin 49.5, hemoglobin of 8.5, hematocrit 29.5. White blood cell count 13,000, with 86.4% neutrophils, platelets 235. ASSESSMENT AND PLAN 1. Chronic bronchitis with acute exacerbation. This continues to improve and will record changer tester to oral antibiotics, prednisone tomorrow. 2. Tachyarrhythmia patient with improved heart rate and blood pressure with current medications. The patient does not experience any increased shortness of breath on the beta issac with the Coreg. Will adjust medications and anticipate possible discharge tomorrow on meds. 3. Anemia. This remains stable. Patient with a normal iron, normal ferritin and oxygen saturation is elevated. Will continue to monitor. The patient does not need iron. Patient's OB is negative x1. 4. Benign prostatic hypertrophy. We will continue the patient's medications. 5. Anxiety. We will continue the patient's medications. 6. Glaucoma. We will continue the patient's drops. 7. Discharge planning. The patient continues improved and will likely be stable for discharge on 06/18/2016, if cardiac medications continue to be adjusted. Dictated By: CAROLYNE PARMAR MD SR/VICKI Conf#: [id number] DID#: [id number]
[2016-06-17] MEDS: SOD FERRIC GLUC COMPLX 125 MG in SOD CHLORIDE 0.9% 100 ML IVPB SCH (14:41)
[2016-06-17] MEDS: ALPRAZOLAM 0.25 MG TAB PO PRN (20:42)
[2016-06-17] MEDS: ATORVASTATIN 10 MG TAB PO SCH (20:43)
[2016-06-17] MEDS: LATANOPROST 0.005% 2.5 ML OPH BOTH EYES SCH (20:43)
[2016-06-18] VITALS (12 sets, daily range): BP systolic 105–133; BP diastolic 59–77; PULSE 50–71; RESP 17–18
[2016-06-18] MEDS: ALBUTEROL/IPRATROPIUM (NEB) 3 ML AMP HHN SCH ×4 (02:04→20:52)
[2016-06-18] MEDS: PANTOPRAZOLE (EC) 40 MG TAB PO SCH (05:13)
[2016-06-18 06:22] LABS: ADD SCAN DIFF NO
[2016-06-18 06:54] LABS: ABNORMAL IP MESSAGE 1; BASOPHILS % 0.2 % (0.0-2.0); HEMATOCRIT 31.2 % (42.0-52.0); HEMOGLOBIN 8.7 g/dl (14.0-18.0); LYMPHOCYTES # 0.6 10^3/ul (0.8-2.9); LYMPHOCYTES % 4.9 % (15.0-51.0); MEAN CORPUSCULAR HEMOGLOBIN 22.4 pg (29.0-33.0); MEAN CORPUSCULAR HGB CONC 27.9 g/dl (32.0-37.0); MEAN CORPUSCULAR VOLUME 80.4 fl (82.0-101.0); MEAN PLATELET VOLUME 9.8 fl (7.4-10.4); MONOCYTE # 0.8 10^3/ul (0.3-0.9); MONOCYTES % 5.7 % (0.0-11.0); NEUTROPHIL # 10.9 10^3/ul (1.6-7.5); NEUTROPHILS % 82.8 % (39.0-77.0); NUCLEATED RED BLOOD CELLS # 0.3 10^3/ul (0.0-0.0); NUCLEATED RED BLOOD CELLS% 2.1 /100WBC (0.0-0.0); PLATELET COUNT 229 10^3/UL (140-415); RED BLOOD COUNT 3.88 10^6/ul (4.70-6.10); RED CELL DISTRIBUTION WIDTH 19.1 % (11.5-14.5); WHITE BLOOD COUNT 13.2 10^3/ul (4.8-10.8)
[2016-06-18 07:03] LABS: POTASSIUM 4.2 mmol/L (3.5-5.1)
[2016-06-18 07:06] LABS: CREATININE 0.55 mg/dl (0.61-1.24)
[2016-06-18 07:07] LABS: CALCIUM 8.2 mg/dl (8.4-10.2)
[2016-06-18] MEDS: FLUCONAZOLE 100 MG TAB PO SCH (08:27)
[2016-06-18] MEDS: ASPIRIN 81 MG TAB PO SCH (08:27)
[2016-06-18] MEDS: TAMSULOSIN (SR) 0.4 MG CAP PO SCH (08:27)
[2016-06-18] MEDS: DILTIAZEM 30 MG TAB PO SCH ×2 (08:27→20:38)
[2016-06-18] MEDS: FAMOTIDINE 20 MG TAB PO SCH (08:27)
[2016-06-18] MEDS: SALMETEROL/FLUTICASONE 250/50 INHA INH SCH ×2 (08:27→20:50)
[2016-06-18] MEDS: PAROXETINE 20 MG TAB PO SCH (08:27)
[2016-06-18] MEDS: METHYLPREDNISOLONE 40 MG INJ IV SCH (08:27)
[2016-06-18] MEDS: LOSARTAN 50 MG TAB PO SCH ×2 (08:27→21:00)
[2016-06-18] MEDS: TIOTROPIUM 18 MCG CAPSULE INHA DEV INH SCH (08:28)
[2016-06-18] MEDS: ENOXAPARIN 40 MG/0.4 ML SYG SC SCH (08:29)
[2016-06-18] MEDS: CEFEPIME 1GM/50 ML (PMX) 50 ML IVPB SCH ×2 (08:46→20:36)
[2016-06-18] MEDS: BRIMONIDINE 0.1% 5 ML OPH BOTH EYES SCH (08:46)
[2016-06-18] MEDS: ALPRAZOLAM 0.25 MG TAB PO PRN ×2 (10:05→20:36)
--- NOTE | 2016-06-18 10:54 | PN ---
DATE: 06/18/2016 SUBJECTIVE: Patient is feeling very weak; otherwise, no chest pain. The patient has moderate short ness of breath. OBJECTIVE VITAL SIGNS: Temperature 98.1, pulse of 72, but as low as 50, respiratory rate 18, blood pressure 1 33/77, oxygen saturation 100% on 2 liter nasal cannula. GENERAL: Well-developed, well-nourished male in no acute distress. CHEST: Decreased breath sounds bilateral bases with coarse rhonchi bilaterally that clear minimally with cough. HEART: Regular rate and rhythm. ABDOMEN: Soft, nontender, normoactive bowel sounds. EXTREMITIES: No cyanosis, clubbing or edema, scattered purpuric lesions. LABORATORY DATA: Sodium 137, potassium 4.2, chloride 94, bicarbonate 39, BUN of 22, creatinine 0.55 , glucose 100, calcium 8.2, hemoglobin of 8.7, hematocrit of 31.2. White blood cell count 13.2, nick telets of 229. ASSESSMENT AND PLAN: 1. Chronic bronchitis with acute exacerbation. Patient continues to improve slowly, but remains si gnificantly short of breath. Will remain on IV antibiotics and overnight houseperson to oral antibiotics jenny rrow. We will continue with Solu-Medrol and overnight houseperson to prednisone tomorrow. Continue with [place] thing treatments and oxygen supplementation as well as Advair. 2. Tachyarrhythmia. This remains stable. The patient is now on 3 different medications including a beta issac which could worsen his COPD. Will discuss with cardiology whether or not the beta blo cker can be discontinued and the patient remain on the calcium channel issac alone with the ARB. We will follow his chem panel. 3. Anemia. This remains stable. 4. Benign prostatic hypertrophy, this is stable. Continue his medications. 5. Glaucoma. We will continue the patient's medications. 6. Hyperlipidemia. We will continue with diet and meds. 7. Discharge planning. Anticipate possible discharge tomorrow to home with home health. We will a rrange this with case management. Dictated By: CAROLYNE PARMAR MD SR/NTS Conf#: [id number] DID#: [id number]
[2016-06-18] MEDS: SOD FERRIC GLUC COMPLX 125 MG in SOD CHLORIDE 0.9% 100 ML IVPB SCH (13:44)
--- NOTE | 2016-06-18 13:54 | CONS ---
Date/Time of Note Date/Time of Note DATE: 06/18/16 TIME: 13:52 Assessment/Plan Assessment/Plan Additional Assessment/Plan 1. Tachyarrythmia-short runs - per tele - a. tach vs MAT is most likely - NL TSH - in sinus now, will monitor closely. If tolerates, BB advisable to moderate dose - overall rate well controlled. Stable - no change in therapy warranted. 2. Dyslipidemia. 3. Hypertension, labile - reasonable control overall. BETTER now. Con't Med rx WILL ADD ARB now. WELL Rx. 4. Chronic obstructive pulmonary disease exacerbation- better now, con't COPD rX. BETTER today. 5. Increased BNP mildly, assess for congestive heart failure- better fluid status now. 6. Psychiatric disorder. 7. Benign prostatic hypertrophy- stable, on therapy. 8. Possible bronchitis- on anti-bx- Rx as needed. On anti-bx. Consultation Date/Type/Reason Admit Date/Time Jun 10, 2016 at 20:37 Type of Consultation: Cardiology Referring Provider: DEBBIE CRAWFORD MD 24 HR Interval Summary Free Text/Dictation NO acute change. BP stable - on therapy - occasional a. tach - will monitor ROS: No fever, no chills, no nausea, no vomiting, no diarrhea/constipation No recent weight changes No chest pain, no PND, no orthopnea No dizziness, blurred vision No thirst, no heat or cold intolerance Exam/Review of Systems Vital Signs Vitals Vital Signs Date Time Temp Pulse Resp B/P Pulse Ox O2 Delivery O2 Flow Rate FiO2 06/18/16 13:12 2.0 06/18/16 13:10 69 16 95 Nasal Cannula 06/18/16 11:43 97.5 126/60 Intake and Output 06/17/16 06/17/16 06/18/16 15:00 23:00 07:00 Intake Total 530 ml 420 ml Output Total 400 ml Balance 530 ml 20 ml Exam General: WN/WD/NAD, AOx 1-2 HEENT: Unicetric/atraumatic/EOMI (follow commands) NECK: JVD elevated, no thyromegaly Lymph: no lymphadenopathy HEART: regular with no S3, II/ systolic murmur at apex LUNGS: Coarse sounds ABD: soft, NT, ND, +BS : Intact Neuro: non focal SKIN: chronic changes EXT: trace edema Results Result Diagram: 06/18/16 0545 06/18/16 0545 Results 24 hrs Laboratory Tests Test 06/18/16 05:45 Anion Gap 8 Basophils # 0.0 Basophils % 0.2 Blood Urea Nitrogen 22 H Calcium Level 8.2 L Carbon Dioxide Level 39 H Chloride Level 94 L Creatinine 0.55 L Eosinophils # 0.0 Eosinophils % 0.0 Glucose Level 100 Hematocrit 31.2 L Hemoglobin 8.7 L Lymphocytes # 0.6 L Lymphocytes % 4.9 L Mean Corpuscular Hemoglobin 22.4 L Mean Corpuscular Hemoglobin Concent 27.9 L Mean Corpuscular Volume 80.4 L Mean Platelet Volume 9.8 Monocytes # 0.8 Monocytes % 5.7 Neutrophils # 10.9 H Neutrophils % 82.8 H Nucleated Red Blood Cells # 0.3 H Nucleated Red Blood Cells % 2.1 H Platelet Count 229 Potassium Level 4.2 Red Blood Count 3.88 L Red Cell Distribution Width 19.1 H Sodium Level 137 White Blood Count 13.2 H Medications Medications Current Medications Aspirin (Aspirin) 81 mg DAILY PO Last administered on 06/18/16 08:27; Admin Dose 81 MG; Start 06/11/16 at 09:00 Brimonidine Tartrate (Alphagan P 0.1%) 1 drop DAILY BOTH EYES Last administered on 06/18/16 08:46; Admin Dose 1 DROP; Start 06/11/16 at 09:00 Paroxetine HCl (Paxil) 20 mg QAM PO Last administered on 06/18/16 08:27; Admin Dose 20 MG; Start 06/11/16 at 09:00 Salmeterol Xinafoate/ Fluticasone (Advair 250/50 Diskus) 1 inh BID INH Last administered on 06/18/16 08:27; Admin Dose 1 INH; Start 06/11/16 at 09:00 Tamsulosin HCl (Flomax) 0.4 mg daily PO Last administered on 06/18/16 08:27; Admin Dose 0.4 MG; Start 06/11/16 at 09:00 Tiotropium [place] (Spiriva) 1 inh DAILY INH Last administered on 06/18/16 08: 28; Admin Dose 1 INH; Start 06/11/16 at 09:00 Zolpidem Tartrate 10 mg 10 mg HS PRN PO INSOMNIA; Start 06/10/16 at 23:30 Cefepime HCl (Maxipime 1gm/50 ml (Pmx)) 50 ml @ 100 mls/hr Q12 IVPB Last administered on 06/18/16 08:46; Admin Dose 100 MLS/HR; Start 06/11/16 at 09:00 Enoxaparin Sodium (Lovenox) 40 mg DAILY SC Last administered on 06/18/16 08:29 ; Admin Dose 40 MG; Start 06/11/16 at 09:00 Acetaminophen (Tylenol Tab) 650 mg Q4H PRN PO PAIN AND OR ELEVATED TEMP; Start 06/10/16 at 23:30 Atorvastatin Calcium (Lipitor) 10 mg DAILY@21 PO Last administered on 20:43; Admin Dose 10 MG; Start 06/11/16 at 21:00 Latanoprost (Xalatan) 1 drop HS BOTH EYES Last administered on 06/17/16 20:43 ; Admin Dose 1 DROP; Start 06/11/16 at 21:00 Famotidine (Pepcid) 20 mg DAILY PO Last administered on 06/18/16 08:27; Admin Dose 20 MG; Start 06/11/16 at 11:30 Alprazolam (Xanax) 0.5 mg Q8H PRN PO ANXIETY Last administered on 06/18/16 10: 05; Admin Dose 0.5 MG; Start 06/11/16 at 12:00 Pantoprazole (Protonix Tab) 40 mg DAILY@06 PO Last administered on 06/18/16 05 :13; Admin Dose 40 MG; Start 06/14/16 at 06:00 Diltiazem HCl (Cardizem) 30 mg Q12 PO Last administered on 06/18/16 08:27; Admin Dose 30 MG; Start 06/13/16 at 21:00 Fluconazole (Diflucan) 100 mg DAILY PO Last administered on 06/18/16 08:27; Admin Dose 100 MG; Start 06/14/16 at 10:00 Carvedilol 12.5 mg 12.5 mg BID PO Last administered on 06/18/16 08:30; Admin Dose 12.5 MG; Start 06/15/16 at 21:00 Ferric Sodium Gluconate Complex/ Sodium Chloride (Ferrlecit/NS) 110 ml @ 100 mls/hr Q24H IVPB Last administered on 06/18/16 13:44; Admin Dose 100 MLS/HR; Start 06/16/16 at 14:30; Stop 06/18/16 at 15:35 Methylprednisolone Sodium Succinate (Solu-Medrol) 40 mg QAM IV Last administered on 06/18/16 08:27; Admin Dose 40 MG; Start 06/17/16 at 09:00 Losartan Potassium (Cozaar) 50 mg BID PO Last administered on 06/18/16 08:27; Admin Dose 50 MG; Start 06/17/16 at 09:00 ALBERTO SCHNEIDER MD Jun 18, 2016 13:54
--- NOTE | 2016-06-18 17:35 | RADRPT ---
Vent Rate: 80 bpm RR Interval: 0 msec MS Interval: 132 msec QRS Duration: 90 msec QT Interval: 364 msec QTC Interval: 419 msec P-R-T [place]: 73 - 76 - 73 degrees Sinus rhythm with premature supraventricular complexes Otherwise normal ECG Electronically Signed By: Leonard Ramos [id number]
[2016-06-18] MEDS: ATORVASTATIN 10 MG TAB PO SCH (20:36)
[2016-06-18] MEDS: LATANOPROST 0.005% 2.5 ML OPH BOTH EYES SCH (20:50)
[2016-06-19] VITALS (12 sets, daily range): BP systolic 94–140; BP diastolic 51–63; PULSE 60–87; RESP 17–20
[2016-06-19] MEDS: ALBUTEROL/IPRATROPIUM (NEB) 3 ML AMP HHN SCH ×4 (02:47→19:59)
[2016-06-19] MEDS: PANTOPRAZOLE (EC) 40 MG TAB PO SCH (05:36)
[2016-06-19] MEDS: LOSARTAN 50 MG TAB PO SCH (09:00)
[2016-06-19] MEDS: FAMOTIDINE 20 MG TAB PO SCH (09:43)
[2016-06-19] MEDS: BRIMONIDINE 0.1% 5 ML OPH BOTH EYES SCH (09:43)
[2016-06-19] MEDS: METHYLPREDNISOLONE 40 MG INJ IV SCH (09:43)
[2016-06-19] MEDS: PAROXETINE 20 MG TAB PO SCH (09:43)
[2016-06-19] MEDS: FLUCONAZOLE 100 MG TAB PO SCH (09:43)
[2016-06-19] MEDS: ASPIRIN 81 MG TAB PO SCH (09:43)
[2016-06-19] MEDS: DILTIAZEM 30 MG TAB PO SCH ×2 (09:44→22:04)
[2016-06-19] MEDS: TIOTROPIUM 18 MCG CAPSULE INHA DEV INH SCH (09:44)
[2016-06-19] MEDS: TAMSULOSIN (SR) 0.4 MG CAP PO SCH (09:44)
[2016-06-19] MEDS: SALMETEROL/FLUTICASONE 250/50 INHA INH SCH ×2 (09:47→22:01)
[2016-06-19] MEDS: CEFEPIME 1GM/50 ML (PMX) 50 ML IVPB SCH ×2 (09:47→22:01)
[2016-06-19] MEDS: ENOXAPARIN 40 MG/0.4 ML SYG SC SCH (09:59)
[2016-06-19 10:02] LABS: ADD SCAN DIFF NO
[2016-06-19 10:05] LABS: ABNORMAL IP MESSAGE 1; BASOPHIL # 0.1 10^3/ul (0.0-0.1); BASOPHILS % 0.3 % (0.0-2.0); HEMATOCRIT 35.1 % (42.0-52.0); HEMOGLOBIN 9.7 g/dl (14.0-18.0); LYMPHOCYTES # 0.5 10^3/ul (0.8-2.9); LYMPHOCYTES % 3.5 % (15.0-51.0); MEAN CORPUSCULAR HEMOGLOBIN 22.2 pg (29.0-33.0); MEAN CORPUSCULAR HGB CONC 27.6 g/dl (32.0-37.0); MEAN CORPUSCULAR VOLUME 80.3 fl (82.0-101.0); MEAN PLATELET VOLUME 9.9 fl (7.4-10.4); MONOCYTE # 0.6 10^3/ul (0.3-0.9); MONOCYTES % 4.3 % (0.0-11.0); NEUTROPHIL # 12.7 10^3/ul (1.6-7.5); NEUTROPHILS % 85.2 % (39.0-77.0); NUCLEATED RED BLOOD CELLS # 0.3 10^3/ul (0.0-0.0); PLATELET COUNT 256 10^3/UL (140-415); RED BLOOD COUNT 4.37 10^6/ul (4.70-6.10); RED CELL DISTRIBUTION WIDTH 19.3 % (11.5-14.5); WHITE BLOOD COUNT 14.9 10^3/ul (4.8-10.8)
[2016-06-19 10:19] LABS: POTASSIUM 4.3 mmol/L (3.5-5.1)
[2016-06-19 10:22] LABS: CALCIUM 8.2 mg/dl (8.4-10.2); CREATININE 0.55 mg/dl (0.61-1.24)
[2016-06-19 12:25] LABS: AADO2 Arterial 22.2 mmHg (7.0-24.0); Allen Test ACCEPTAB; Arterial Base Excess 9.6 mmol/L (-3.0-3); Arterial COHb 0.3 % (0.0-3.0); Arterial Fraction of Oxyhgb 95.9 % (93.0-99.0); Arterial HCO3 36.8 mmol/L (22.0-26.0); Arterial MetHb 0.2 % (0.0-1.5); Arterial Total Hemglobin 10.2 g/dl (12.0-18.0); MODE NASAL CANNULA
--- NOTE | 2016-06-19 14:01 | PN ---
DATE: 06/19/2016 SUBJECTIVE: The patient is feeling weak, dizzy with standing, very tired. OBJECTIVE: VITAL SIGNS: Blood pressure at its lowest 97/54, currently 102/51, pulse anywhere from 60 to 68, te mperature 97.6, respirations 20, oxygen saturation 99% on room air. GENERAL: Well-developed, well-nourished male, lying in bed, appearing weak. SKIN: Multiple purpuric lesions upper extremities with a skin tear left elbow. CHEST: Bilateral coarse rhonchi with decreased breath sounds bilateral bases, otherwise unremarkabl e. HEART: Regular rate and rhythm. ABDOMEN: Soft, nontender. NEUROLOGIC: Nonfocal. LABORATORY DATA: Arterial blood gas shows a pH of 7.36, pCO2 of 66.7, pO2 of 91.4, oxygen saturatio n 96.4%. Sodium 139, potassium 4.3, chloride 91, carbon dioxide is 42, BUN of 18, creatinine 0.44, b lood sugar 133. White blood cell count 14.9, hemoglobin 9.7, hematocrit 35.1, platelets 256. ASSESSMENT AND PLAN: 1. Chronic bronchitis with acute exacerbation, slowly improving. The patient did have increased CO 2 on basic metabolic panel, but arterial blood gas did not show significant change and CO2 retention . No need for BiPAP at this point. We will continue with antibiotics, steroids and inhalers. 2. Atrial tachycardia, hypertension worse patient with decreased heart rate as well as hypotension, likely related to 3 different medications being used at this point. We will hold discharge. We wi ll hold the carvedilol and likely have to reduce or hold the Losartan but continue diltiazem for bot h rate and blood pressure. 3. Anemia, improved but likely with hemoconcentration based on today's blood test. Will repeat el orrow and revaluate. 4. BPH. Continue the patient's medications. 5. Glaucoma. Continue the patient's medications. 6. Discharge planning. Patient unstable at this point and not ready for discharge. We will contin ue to adjust his medications and anticipate possible discharge on Friday if things improve over the next 48 hours. Dictated By: CAROLYNE PARMAR MD SR/VICKI Conf#: [id number] DID#: [id number]
[2016-06-19] MEDS: ALPRAZOLAM 0.25 MG TAB PO PRN (14:21)
--- NOTE | 2016-06-19 14:34 | CONS ---
Date/Time of Note Date/Time of Note DATE: 06/19/16 TIME: 14:29 Assessment/Plan Assessment/Plan Chief Complaint/Hosp Course IMPRESSION: 1. Tachyarrythmia-short run question AVNRT, atypical atrial flutter, less likely AVRT, possible atrial tachycardia.-NL TSH. no recurrence and having BB held due to low BP/NL EF/LVDD by echo this admit 2. Dyslipidemia. 3. Hypertension, labile. 4. Chronic obstructive pulmonary disease exacerbation. 5. Increased BNP mildly, assess for congestive heart failure. 6. Psychiatric disorder. 7. Benign prostatic hypertrophy. 8. Possible bronchitis. Recc: -Tele -Continue dilt as tolerated only and agree will d/c coreg for now given marginal BP as well as tenuous resp status so as not to provoke bronchospasm given non-selective BB. If resume BB would start B1 selective BB such as metoprolol -Will continue losartan for now but decrease dose to allow to better tolerate -Continue statin -Continue asa/steroids/bronchodilators and follow resp status closely -Continue abx's and f/u cx data Problems: Consultation Date/Type/Reason Admit Date/Time Jun 10, 2016 at 20:37 Initial Consult Date 06/12/2016 Type of Consultation: Cardiology Reason for Consultation SVT Referring Provider: DEBBIE CRAWFORD MD Exam/Review of Systems Vital Signs Vitals Vital Signs Date Time Temp Pulse Resp B/P Pulse Ox O2 Delivery O2 Flow Rate FiO2 06/19/16 12:18 66 06/19/16 11:55 97.6 20 102/51 99 06/19/16 08:00 Nasal Cannula 2.0 Intake and Output 06/18/16 06/18/16 06/19/16 15:00 23:00 07:00 Intake Total 600 ml 550 ml Output Total 700 ml 500 ml Balance -100 ml 50 ml Exam Review of Systems: CONSTITUTIONAL: No fevers, chills. PULMONARY: No sob CARDIOVASCULAR: No chest pain/palpitations GASTROINTESTINAL: No nausea/vomiting. GENITOURINARY: No hematuria/dysuria. MUSCULOSKELETAL: No myagias/arthalgias. PSYCHIATRIC: The patient denies depression. NEUROLOGIC: lethargic Constitutional: other (sleeping) Psych: no complaints Head: normocephalic ENMT: mucosa pink and moist Neck: jvd, supple (8cm) Respiratory: diminished breath sounds (at bases/B) Cardiovascular: regular rate and rhythm Gastrointestinal: non-tender, soft Musculoskeletal: muscle tone Extremities: normal pulses Neurological: other (No focal deficits) Results Result Diagram: 06/19/1645 06/19/16 0945 Results 24 hrs Laboratory Tests Test 06/19/16 09:45 06/19/16 11:23 Anion Gap 10 Basophils # 0.1 Basophils % 0.3 Blood Urea Nitrogen 18 Calcium Level 8.2 L Carbon Dioxide Level 42 *H Chloride Level 91 L Creatinine 0.55 L Eosinophils # 0.0 Eosinophils % 0.0 Glucose Level 133 Hematocrit 35.1 L Hemoglobin 9.7 L Lymphocytes # 0.5 L Lymphocytes % 3.5 L Mean Corpuscular Hemoglobin 22.2 L Mean Corpuscular Hemoglobin Concent 27.6 L Mean Corpuscular Volume 80.3 L Mean Platelet Volume 9.9 Monocytes # 0.6 Monocytes % 4.3 Neutrophils # 12.7 H Neutrophils % 85.2 H Nucleated Red Blood Cells # 0.3 H Nucleated Red Blood Cells % 2.0 H Platelet Count 256 Potassium Level 4.3 Red Blood Count 4.37 L Red Cell Distribution Width 19.3 H Sodium Level 139 White Blood Count 14.9 H Arterial Blood HCO3 36.8 H Arterial Blood Base Excess 9.6 H Arterial Blood Oxygen Saturation 96.4 Kahlil Test ACCEPTAB Arterial Blood Gas Puncture Site Left Radial Arterial Blood Carboxyhemoglobin 0.3 Arterial Blood Date Drawn 06/19/2016 12:14:43 PM Arterial Blood Methemoglobin 0.2 Arterial Blood pCO2 (Temp correct) 66.7 H Arterial Blood pH (Temp corrected) 7.360 Arterial Blood pO2 (Temp corrected) 91.4 H Blood Gas A-a O2 Differential 22.2 Blood Gas Modality NASAL CANNULA Blood Gas Notified Time 06/19/2016 12:25:17 PM Blood Gas Notified Whom M.D. Blood Gas Specimen Source Blood arterial Blood Gas Temperature 37.0 FiO2 27.0 Oxyhemoglobin Percent 95.9 Total Hemoglobin 10.2 L Medications Medications Current Medications Aspirin (Aspirin) 81 mg DAILY PO Last administered on 06/19/16 09:43; Admin Dose 81 MG; Start 06/11/16 at 09:00 Brimonidine Tartrate (Alphagan P 0.1%) 1 drop DAILY BOTH EYES Last administered on 06/19/16 09:43; Admin Dose 1 DROP; Start 06/11/16 at 09:00 Paroxetine HCl (Paxil) 20 mg QAM PO Last administered on 06/19/16 09:43; Admin Dose 20 MG; Start 06/11/16 at 09:00 Salmeterol Xinafoate/ Fluticasone (Advair 250/50 Diskus) 1 inh BID INH Last administered on 06/19/16 09:47; Admin Dose 1 INH; Start 06/11/16 at 09:00 Tamsulosin HCl (Flomax) 0.4 mg daily PO Last administered on 06/19/16 09:44; Admin Dose 0.4 MG; Start 06/11/16 at 09:00 Tiotropium [place] (Spiriva) 1 inh DAILY INH Last administered on 06/19/16 09: 44; Admin Dose 1 INH; Start 06/11/16 at 09:00 Zolpidem Tartrate 10 mg 10 mg HS PRN PO INSOMNIA; Start 06/10/16 at 23:30 Cefepime HCl (Maxipime 1gm/50 ml (Pmx)) 50 ml @ 100 mls/hr Q12 IVPB Last administered on 06/19/16 09:47; Admin Dose 100 MLS/HR; Start 06/11/16 at 09:00 Enoxaparin Sodium (Lovenox) 40 mg DAILY SC Last administered on 06/19/16 09:59 ; Admin Dose 40 MG; Start 06/11/16 at 09:00 Acetaminophen (Tylenol Tab) 650 mg Q4H PRN PO PAIN AND OR ELEVATED TEMP; Start 06/10/16 at 23:30 Atorvastatin Calcium (Lipitor) 10 mg DAILY@21 PO Last administered on 20:36; Admin Dose 10 MG; Start 06/11/16 at 21:00 Latanoprost (Xalatan) 1 drop HS BOTH EYES Last administered on 06/18/16 20:50 ; Admin Dose 1 DROP; Start 06/11/16 at 21:00 Famotidine (Pepcid) 20 mg DAILY PO Last administered on 06/19/16 09:43; Admin Dose 20 MG; Start 06/11/16 at 11:30 Alprazolam (Xanax) 0.5 mg Q8H PRN PO ANXIETY Last administered on 06/19/16 14: 21; Admin Dose 0.5 MG; Start 06/11/16 at 12:00 Pantoprazole (Protonix Tab) 40 mg DAILY@06 PO Last administered on 06/19/16 05: 36; Admin Dose 40 MG; Start 06/14/16 at 06:00 Diltiazem HCl (Cardizem) 30 mg Q12 PO Last administered on 06/19/16 09:44; Admin Dose 30 MG; Start 06/13/16 at 21:00 Fluconazole (Diflucan) 100 mg DAILY PO Last administered on 06/19/16 09:43; Admin Dose 100 MG; Start 06/14/16 at 10:00 Carvedilol (Coreg) 12.5 mg BID PO Last administered on 06/18/16 08:30; Admin Dose 12.5 MG; Start 06/15/16 at 21:00 Methylprednisolone Sodium Succinate (Solu-Medrol) 40 mg QAM IV Last administered on 06/19/16 09:43; Admin Dose 40 MG; Start 06/17/16 at 09:00 Losartan Potassium (Cozaar) 50 mg BID PO Last administered on 06/18/16 08:27; Admin Dose 50 MG; Start 06/17/16 at 09:00 GABRIEL MARTIN Jun 19, 2016 14:34
[2016-06-19] MEDS: ATORVASTATIN 10 MG TAB PO SCH (22:05)
[2016-06-20] VITALS (12 sets, daily range): BP systolic 105–127; BP diastolic 55–70; PULSE 70–110; RESP 17–20
[2016-06-20] MEDS: LATANOPROST 0.005% 2.5 ML OPH BOTH EYES SCH ×2 (00:32→21:55)
[2016-06-20] MEDS: ALBUTEROL/IPRATROPIUM (NEB) 3 ML AMP HHN SCH ×4 (01:38→22:13)
[2016-06-20 06:37] LABS: ADD SCAN DIFF NO
[2016-06-20 06:47] LABS: ABNORMAL IP MESSAGE 1; BASOPHIL # 0.1 10^3/ul (0.0-0.1); BASOPHILS % 0.6 % (0.0-2.0); EOSINOPHILS % 0.1 % (0.0-7.0); HEMATOCRIT 33.1 % (42.0-52.0); HEMOGLOBIN 9.3 g/dl (14.0-18.0); LYMPHOCYTES # 0.7 10^3/ul (0.8-2.9); LYMPHOCYTES % 4.3 % (15.0-51.0); MEAN CORPUSCULAR HEMOGLOBIN 22.7 pg (29.0-33.0); MEAN CORPUSCULAR HGB CONC 28.1 g/dl (32.0-37.0); MEAN CORPUSCULAR VOLUME 80.9 fl (82.0-101.0); MONOCYTE # 0.7 10^3/ul (0.3-0.9); MONOCYTES % 4.4 % (0.0-11.0); NEUTROPHIL # 13.3 10^3/ul (1.6-7.5); NUCLEATED RED BLOOD CELLS # 0.4 10^3/ul (0.0-0.0); NUCLEATED RED BLOOD CELLS% 2.6 /100WBC (0.0-0.0); PLATELET COUNT 231 10^3/UL (140-415); RED BLOOD COUNT 4.09 10^6/ul (4.70-6.10); RED CELL DISTRIBUTION WIDTH 19.6 % (11.5-14.5); WHITE BLOOD COUNT 16.2 10^3/ul (4.8-10.8)
[2016-06-20 06:56] LABS: CREATININE 0.66 mg/dl (0.61-1.24)
[2016-06-20 06:57] LABS: CALCIUM 8.3 mg/dl (8.4-10.2)
[2016-06-20] MEDS: PANTOPRAZOLE (EC) 40 MG TAB PO SCH (07:05)
[2016-06-20] MEDS: SALMETEROL/FLUTICASONE 250/50 INHA INH SCH ×2 (09:13→21:38)
[2016-06-20] MEDS: CEFEPIME 1GM/50 ML (PMX) 50 ML IVPB SCH ×2 (09:13→21:38)
[2016-06-20] MEDS: PAROXETINE 20 MG TAB PO SCH (09:13)
[2016-06-20] MEDS: ASPIRIN 81 MG TAB PO SCH (09:13)
[2016-06-20] MEDS: FLUCONAZOLE 100 MG TAB PO SCH (09:13)
[2016-06-20] MEDS: METHYLPREDNISOLONE 40 MG INJ IV SCH (09:13)
[2016-06-20] MEDS: TIOTROPIUM 18 MCG CAPSULE INHA DEV INH SCH (09:13)
[2016-06-20] MEDS: FAMOTIDINE 20 MG TAB PO SCH (09:13)
[2016-06-20] MEDS: BRIMONIDINE 0.1% 5 ML OPH BOTH EYES SCH (09:13)
[2016-06-20] MEDS: ALPRAZOLAM 0.25 MG TAB PO PRN ×2 (09:14→17:25)
[2016-06-20] MEDS: TAMSULOSIN (SR) 0.4 MG CAP PO SCH (09:14)
[2016-06-20] MEDS: LOSARTAN 50 MG TAB PO SCH (09:14)
[2016-06-20] MEDS: DILTIAZEM 30 MG TAB PO SCH ×2 (09:14→21:39)
--- NOTE | 2016-06-20 09:38 | PN ---
DATE: 06/20/2016 SUBJECTIVE: The patient is feeling a little bit better from yesterday, not as weak. No dizziness t sophie, but still short of breath. OBJECTIVE: VITAL SIGNS: Temperature 97.8, pulse of 65 to 80 over the last 24 hours, blood pressure 127/70, oxy gen saturation 96% on 2 liters nasal cannula oxygen. GENERAL: Well-developed, well-nourished male, in no acute distress. SKIN: Multiple purpuric lesions, upper extremities. CHEST: Decreased breath sounds at bilateral bases with coarse rhonchi, with end expiratory wheezing . HEART: Regular rate and rhythm. ABDOMEN: Soft, nontender. LABORATORY EXAMINATION: Shows sodium 138, potassium 5.0, chloride 93, bicarbonate 42, BUN 25, creat inine 0.66, blood sugar of 118. White blood cell count 16.2, with 82% neutrophils. Hemoglobin 9.3, hematocrit of 33.1, platelets 231. ASSESSMENT AND PLAN: 1. Chronic bronchitis with acute exacerbation. The patient remained stable, but still dyspneic, bu t nearing his baseline. Patient with increasing white blood cell count, which may be related to the steroids but will repeat a chest x-ray to make sure there is no additional infiltrate. 2. Tachyarrhythmia and high blood pressure. Improved with holding the Coreg and backing down on e Losartan. Will continue with the current medications at this dosage. Will follow potassium, as i t is 5.0 today on the Losartan. 3. Anemia. Stable. Will continue to monitor. 4. Hyperlipidemia. Continue with diet and meds. 5. Benign prostatic hypertrophy. Continue with medications. 6. Glaucoma. Continue with medications. 7. Discharge planning. Patient is improving and if he continues to improve, possible discharge to home with home health on 06/21/2016. Dictated By: CAROLYNE PARMAR MD SR/NTS Conf#: [id number] DID#: [id number]
[2016-06-20] MEDS: ENOXAPARIN 40 MG/0.4 ML SYG SC SCH (09:49)
--- NOTE | 2016-06-20 10:49 | RADRPT ---
PROCEDURE: XR Chest. CLINICAL INDICATION: Cough. Sepsis. TECHNIQUE: Single frontal view. COMPARISON: 06/10/1816. FINDINGS: There is mild atelectasis at the lung bases. The lungs are otherwise clear. The heart size is normal. There is calcification in the aorta consistent with atherosclerosis. There is no pleural effusion. There is no pneumothorax. IMPRESSION: 1. Mild atelectasis at the lung bases. 2. Atherosclerosis. RPTAT: QQ .Reginaldo Harper MD, MD Date Time Electronically viewed and signed by .Reginaldo Harper MD, MD on 06/20/2016 10:49 .R/
--- NOTE | 2016-06-20 19:51 | CONS ---
Date/Time of Note Date/Time of Note DATE: 06/20/16 TIME: 19:46 Assessment/Plan Assessment/Plan Chief Complaint/Hosp Course IMPRESSION: 1. Tachyarrythmia-short run question AVNRT, atypical atrial flutter, less likely AVRT, possible atrial tachycardia.-NL TSH. no recurrence and having BB held due to low BP/NL EF/LVDD by echo this admit 2. Dyslipidemia. 3. Hypertension, labile. 4. Chronic obstructive pulmonary disease exacerbation. 5. Increased BNP mildly, assess for congestive heart failure. 6. Psychiatric disorder. 7. Benign prostatic hypertrophy. 8. Possible bronchitis. Recc: -Tele -Continue dilt with stable BP and relatively stable HR s/p d/c coreg. If resume BB would start B1 selective BB such as metoprolol -Will continue losartan for now and follow k closely -Continue statin -Continue asa/steroids/bronchodilators and follow resp status closely -Continue abx's and f/u cx data Problems: Consultation Date/Type/Reason Admit Date/Time Jun 10, 2016 at 20:37 Initial Consult Date 06/12/2016 Type of Consultation: Cardiology Reason for Consultation SVT Referring Provider: DEBBIE CRAWFORD MD Exam/Review of Systems Vital Signs Vitals Vital Signs Date Time Temp Pulse Resp B/P Pulse Ox O2 Delivery O2 Flow Rate FiO2 06/20/16 17:20 110 06/20/16 16:37 2.0 06/20/16 15:58 98.4 17 105/65 94 06/20/16 13:17 Nasal Cannula Intake and Output 06/19/16 06/19/16 06/20/16 15:00 23:00 07:00 Intake Total 720 ml 450 ml Output Total 400 ml Balance 320 ml 450 ml Exam Review of Systems: CONSTITUTIONAL: No fevers, chills. PULMONARY: No sob CARDIOVASCULAR: No chest pain/palpitations GASTROINTESTINAL: No nausea/vomiting. GENITOURINARY: No hematuria/dysuria. MUSCULOSKELETAL: No myagias/arthalgias. PSYCHIATRIC: The patient denies depression. NEUROLOGIC: No weakness Constitutional: other (sleeping) Psych: no complaints Head: normocephalic ENMT: mucosa pink and moist Neck: jvd, supple Respiratory: diminished breath sounds (at bases/B) Cardiovascular: regular rate and rhythm Gastrointestinal: non-tender, soft Musculoskeletal: muscle tone Extremities: normal pulses Neurological: other (No focal deficits) Results Result Diagram: 06/20/16 0615 06/20/16 0615 Results 24 hrs Laboratory Tests Test 06/20/16 06:15 Anion Gap 8 Basophils # 0.1 Basophils % 0.6 Blood Urea Nitrogen 25 H Calcium Level 8.3 L Carbon Dioxide Level 42 *H Chloride Level 93 L Creatinine 0.66 Eosinophils # 0.0 Eosinophils % 0.1 Glucose Level 118 Hematocrit 33.1 L Hemoglobin 9.3 L Lymphocytes # 0.7 L Lymphocytes % 4.3 L Mean Corpuscular Hemoglobin 22.7 L Mean Corpuscular Hemoglobin Concent 28.1 L Mean Corpuscular Volume 80.9 L Mean Platelet Volume 10.0 Monocytes # 0.7 Monocytes % 4.4 Neutrophils # 13.3 H Neutrophils % 82.0 H Nucleated Red Blood Cells # 0.4 H Nucleated Red Blood Cells % 2.6 H Platelet Count 231 Potassium Level 5.0 Red Blood Count 4.09 L Red Cell Distribution Width 19.6 H Sodium Level 138 White Blood Count 16.2 H Medications Medications Current Medications Aspirin (Aspirin) 81 mg DAILY PO Last administered on 06/20/16 09:13; Admin Dose 81 MG; Start 06/11/16 at 09:00 Brimonidine Tartrate (Alphagan P 0.1%) 1 drop DAILY BOTH EYES Last administered on 06/20/16 09:13; Admin Dose 1 DROP; Start 06/11/16 at 09:00 Paroxetine HCl (Paxil) 20 mg QAM PO Last administered on 06/20/16 09:13; Admin Dose 20 MG; Start 06/11/16 at 09:00 Salmeterol Xinafoate/ Fluticasone (Advair 250/50 Diskus) 1 inh BID INH Last administered on 06/20/16 09:13; Admin Dose 1 INH; Start 06/11/16 at 09:00 Tamsulosin HCl (Flomax) 0.4 mg daily PO Last administered on 06/20/16 09:14; Admin Dose 0.4 MG; Start 06/11/16 at 09:00 Tiotropium [place] (Spiriva) 1 inh DAILY INH Last administered on 06/20/16 09: 13; Admin Dose 1 INH; Start 06/11/16 at 09:00 Zolpidem Tartrate 10 mg 10 mg HS PRN PO INSOMNIA; Start 06/10/16 at 23:30 Cefepime HCl (Maxipime 1gm/50 ml (Pmx)) 50 ml @ 100 mls/hr Q12 IVPB Last administered on 06/20/16 09:13; Admin Dose 100 MLS/HR; Start 06/11/16 at 09:00 Enoxaparin Sodium (Lovenox) 40 mg DAILY SC Last administered on 06/20/16 09:49 ; Admin Dose 40 MG; Start 06/11/16 at 09:00 Acetaminophen (Tylenol Tab) 650 mg Q4H PRN PO PAIN AND OR ELEVATED TEMP; Start 06/10/16 at 23:30 Atorvastatin Calcium (Lipitor) 10 mg DAILY@21 PO Last administered on 06/19/16 22:05; Admin Dose 10 MG; Start 06/11/16 at 21:00 Latanoprost (Xalatan) 1 drop HS BOTH EYES Last administered on 06/20/16 00:32; Admin Dose 1 DROP; Start 06/11/16 at 21:00 Famotidine (Pepcid) 20 mg DAILY PO Last administered on 06/20/16 09:13; Admin Dose 20 MG; Start 06/11/16 at 11:30 Alprazolam (Xanax) 0.5 mg Q8H PRN PO ANXIETY Last administered on 06/20/16 17: 25; Admin Dose 0.5 MG; Start 06/11/16 at 12:00 Pantoprazole (Protonix Tab) 40 mg DAILY@06 PO Last administered on 06/20/16 07: 05; Admin Dose 40 MG; Start 06/14/16 at 06:00 Diltiazem HCl (Cardizem) 30 mg Q12 PO Last administered on 06/20/16 09:14; Admin Dose 30 MG; Start 06/13/16 at 21:00 Fluconazole (Diflucan) 100 mg DAILY PO Last administered on 06/20/16 09:13; Admin Dose 100 MG; Start 06/14/16 at 10:00 Methylprednisolone Sodium Succinate (Solu-Medrol) 40 mg QAM IV Last administered on 06/20/16 09:13; Admin Dose 40 MG; Start 06/17/16 at 09:00 Losartan Potassium (Cozaar) 50 mg DAILY PO Last administered on 06/20/16t 09:14 ; Admin Dose 50 MG; Start 06/20/16 at 09:00 GABRIEL MARTIN Jun 20, 2016 19:51
[2016-06-20] MEDS: ATORVASTATIN 10 MG TAB PO SCH (21:38)
[2016-06-21] VITALS (8 sets, daily range): BP systolic 98–123; BP diastolic 54–66; PULSE 73–91; RESP 18–20
[2016-06-21] MEDS: ALBUTEROL/IPRATROPIUM (NEB) 3 ML AMP HHN SCH ×2 (02:30→08:06)
[2016-06-21] MEDS: PANTOPRAZOLE (EC) 40 MG TAB PO SCH (05:44)
[2016-06-21 07:42] LABS: ADD SCAN DIFF NO
[2016-06-21 07:49] LABS: ABNORMAL IP MESSAGE 1; BASOPHIL # 0.1 10^3/ul (0.0-0.1); BASOPHILS % 0.5 % (0.0-2.0); HEMATOCRIT 33.1 % (42.0-52.0); HEMOGLOBIN 9.3 g/dl (14.0-18.0); LYMPHOCYTES # 0.6 10^3/ul (0.8-2.9); LYMPHOCYTES % 3.8 % (15.0-51.0); MEAN CORPUSCULAR HEMOGLOBIN 22.8 pg (29.0-33.0); MEAN CORPUSCULAR HGB CONC 28.1 g/dl (32.0-37.0); MEAN CORPUSCULAR VOLUME 81.1 fl (82.0-101.0); MEAN PLATELET VOLUME 9.8 fl (7.4-10.4); MONOCYTE # 0.9 10^3/ul (0.3-0.9); MONOCYTES % 5.6 % (0.0-11.0); NEUTROPHIL # 13.5 10^3/ul (1.6-7.5); NEUTROPHILS % 83.4 % (39.0-77.0); NUCLEATED RED BLOOD CELLS # 0.2 10^3/ul (0.0-0.0); PLATELET COUNT 207 10^3/UL (140-415); RED BLOOD COUNT 4.08 10^6/ul (4.70-6.10); RED CELL DISTRIBUTION WIDTH 20.2 % (11.5-14.5); WHITE BLOOD COUNT 16.2 10^3/ul (4.8-10.8)
[2016-06-21 07:58] LABS: POTASSIUM 4.5 mmol/L (3.5-5.1)
[2016-06-21 08:00] LABS: CREATININE 0.67 mg/dl (0.61-1.24)
--- NOTE | 2016-06-21 08:40 | PDOCDIS ---
Discharge Instructions DIAGNOSIS Discharge Diagnosis: chronic bronchitis w/exacerbation/tachyarrhythmia CONDITION Patient Condition: Fair HOME CARE INSTRUCTIONS: Diet Instructions: Low Fat /CholesterolSpecial Diet: mechanical soft ACTIVITY: Activity Restrictions: No Restrictions FOLLOW UP/APPOINTMENTS Appointments follow up within the next 4wks; pt to call for appt REFERRALS Agency Name and Phone Number: [facility] with PTx CAROLYNE PARMAR MD- Jun 21, 2016 08:39
[2016-06-21] MEDS ORDERED: LOSA50TA6 PO (08:44)
[2016-06-21] MEDS: LOSARTAN 50 MG TAB PO SCH (09:00)
[2016-06-21] MEDS: DILTIAZEM 30 MG TAB PO SCH (09:00)
--- NOTE | 2016-06-21 09:01 | PN ---
DATE: 06/21/2016 SUBJECTIVE: The patient is feeling better, mild shortness of breath, no palpitations, no chest pain . OBJECTIVE: VITAL SIGNS: Temperature 97.8, pulse 73, respirations 16, blood pressure 123/62, oxygen saturation 99% on 2 L. GENERAL: Well-developed, well-nourished male in no acute distress, lying in bed. SKIN: There is a skin tear at the right antecubital fossa approximately 2 x 2 cm. No drainage. Mu ltiple purpuric lesions in the bilateral upper extremities. CHEST: Decreased breath sounds bilaterally with coarse rhonchi with scant end-expiratory wheeze. HEART: Regular rate and rhythm without ectopy. ABDOMEN: Soft, nontender. EXTREMITIES: No cyanosis, clubbing, or edema. NEUROLOGIC: Nonfocal. LABORATORY EXAMINATION: Sodium 136, potassium 4.5, chloride 91, bicarbonate 41, BUN 25, creatinine 0.67, blood sugar of 120, calcium 8.0, hematocrit of 33.1, hemoglobin 9.3. White blood cell count 1 6.2, platelet count 207. ASSESSMENT AND PLAN 1. Chronic bronchitis with acute exacerbation. The patient is improved and has completed a full co urse of antibiotics. Will not need antibiotics after discharge and can discontinue both the cefepim e and the fluconazole. The patient will continue on the inhalers as well as prednisone 20 mg daily after discharge. 2. Tachyarrhythmia and hypertension. These are stable on current medications. The patient will be discharged on Losartan 50 mg daily as well as diltiazem 30 mg b.i.d. 3. Benign prostatic hypertrophy. Continue with patient's medications. 4. Glaucoma, this is stable. Continue with the patient's eyedrops. 5. Hyperlipidemia. We will continue with the patient's medications and diet. DISCHARGE PLANNING: The patient is stable for discharge to home with home health. The patient will follow up in the next [address] Frank for routine followup. He should call for an appointme nt. Dictated By: CAROLYNE FRANK MD SR/NTS Conf#: [id number] DID#: [id number]
[2016-06-21] MEDS: BRIMONIDINE 0.1% 5 ML OPH BOTH EYES SCH (09:45)
[2016-06-21] MEDS: METHYLPREDNISOLONE 40 MG INJ IV SCH (09:45)
[2016-06-21] MEDS: FAMOTIDINE 20 MG TAB PO SCH (09:46)
[2016-06-21] MEDS: TAMSULOSIN (SR) 0.4 MG CAP PO SCH (09:46)
[2016-06-21] MEDS: ASPIRIN 81 MG TAB PO SCH (09:46)
[2016-06-21] MEDS: FLUCONAZOLE 100 MG TAB PO SCH (09:46)
[2016-06-21] MEDS: TIOTROPIUM 18 MCG CAPSULE INHA DEV INH SCH (09:46)
[2016-06-21] MEDS: SALMETEROL/FLUTICASONE 250/50 INHA INH SCH (09:46)
[2016-06-21] MEDS: PAROXETINE 20 MG TAB PO SCH (09:46)
[2016-06-21] MEDS: ENOXAPARIN 40 MG/0.4 ML SYG SC SCH (09:50)
[2016-06-21] MEDS: CEFEPIME 1GM/50 ML (PMX) 50 ML IVPB SCH (09:51)
[2016-06-21] MEDS ORDERED: DILT30TA30 PO (12:12)
[2016-06-21] MEDS ORDERED: PRED20TA PO (12:12)
--- NOTE | 2016-06-21 13:54 | CONS ---
Date/Time of Note Date/Time of Note DATE: 06/21/16 TIME: 13:52 Assessment/Plan Assessment/Plan Chief Complaint/Hosp Course IMPRESSION: 1. Tachyarrythmia-short run question AVNRT, atypical atrial flutter, less likely AVRT, possible atrial tachycardia.-NL TSH. no recurrence and having BB held due to low BP/NL EF/LVDD by echo this admit 2. Dyslipidemia. 3. Hypertension, labile.-on low end with holding of dilt/losartan today 4. Chronic obstructive pulmonary disease exacerbation. 5. Increased BNP mildly, assess for congestive heart failure. 6. Psychiatric disorder. 7. Benign prostatic hypertrophy. 8. Possible bronchitis. Recc: -Tele -Continue dilt with stable BP and relatively stable HR s/p d/c coreg. If resume BB would start B1 selective BB such as metoprolol -Would decrase dose of losartan to 25 mg and likley d/c if unable to tolerate in favor of continuing diltizaem -Continue statin -Continue asa/steroids/bronchodilators with improved resp status -Continue abx's and f/u cx data -D/C planing Problems: Consultation Date/Type/Reason Admit Date/Time Jun 10, 2016 at 20:37 Initial Consult Date 06/12/2016 Type of Consultation: Cardiology Reason for Consultation SVT Referring Provider: DEBBIE CRAWFORD MD Exam/Review of Systems Vital Signs Vitals Vital Signs Date Time Temp Pulse Resp B/P Pulse Ox O2 Delivery O2 Flow Rate FiO2 06/21/16 12:33 77 06/21/16 11:52 98.0 18 117/54 100 06/21/16 09:00 Nasal Cannula 2.0 Intake and Output 06/20/16 06/20/16 06/21/16 15:00 23:00 07:00 Intake Total 800 ml 400 ml Output Total 400 ml 600 ml Balance 400 ml -200 ml Exam Review of Systems: CONSTITUTIONAL: No fevers, chills. PULMONARY: No sob CARDIOVASCULAR: No chest pain/palpitations GASTROINTESTINAL: No nausea/vomiting. GENITOURINARY: No hematuria/dysuria. MUSCULOSKELETAL: No myagias/arthalgias. PSYCHIATRIC: The patient denies depression. NEUROLOGIC: No weakness Constitutional: alert Psych: no complaints Head: normocephalic ENMT: mucosa pink and moist Neck: jvd (8 cm water), supple Respiratory: diminished breath sounds (at bases/B) Cardiovascular: regular rate and rhythm Gastrointestinal: non-tender, soft Musculoskeletal: muscle tone (normal) Extremities: edema (none) Neurological: other (No focal deficits) Results Result Diagram: 06/21/16 0710 06/21/16 0710 Results 24 hrs Laboratory Tests Test 06/21/16 07:10 Anion Gap 9 Basophils # 0.1 Basophils % 0.5 Blood Urea Nitrogen 25 H Calcium Level 8.0 L Carbon Dioxide Level 41 *H Chloride Level 91 L Creatinine 0.67 Eosinophils # 0.0 Eosinophils % 0.0 Glucose Level 120 Hematocrit 33.1 L Hemoglobin 9.3 L Lymphocytes # 0.6 L Lymphocytes % 3.8 L Mean Corpuscular Hemoglobin 22.8 L Mean Corpuscular Hemoglobin Concent 28.1 L Mean Corpuscular Volume 81.1 L Mean Platelet Volume 9.8 Monocytes # 0.9 Monocytes % 5.6 Neutrophils # 13.5 H Neutrophils % 83.4 H Nucleated Red Blood Cells # 0.2 H Nucleated Red Blood Cells % 1.0 H Platelet Count 207 Potassium Level 4.5 Red Blood Count 4.08 L Red Cell Distribution Width 20.2 H Sodium Level 136 White Blood Count 16.2 H Medications Medications Current Medications Aspirin (Aspirin) 81 mg DAILY PO Last administered on 06/21/16 09:46; Admin Dose 81 MG; Start 06/11/16 at 09:00 Brimonidine Tartrate (Alphagan P 0.1%) 1 drop DAILY BOTH EYES Last administered on 06/21/16 09:45; Admin Dose 1 DROP; Start 06/11/16 at 09:00 Paroxetine HCl (Paxil) 20 mg QAM PO Last administered on 06/21/16 09:46; Admin Dose 20 MG; Start 06/11/16 at 09:00 Salmeterol Xinafoate/ Fluticasone (Advair 250/50 Diskus) 1 inh BID INH Last administered on 06/21/16 09:46; Admin Dose 1 INH; Start 06/11/16 at 09:00 Tamsulosin HCl (Flomax) 0.4 mg daily PO Last administered on 06/21/16 09:46; Admin Dose 0.4 MG; Start 06/11/16 at 09:00 Tiotropium [place] (Spiriva) 1 inh DAILY INH Last administered on 06/21/16 09: 46; Admin Dose 1 INH; Start 06/11/16 at 09:00 Zolpidem Tartrate 10 mg 10 mg HS PRN PO INSOMNIA; Start 06/10/16 at 23:30 Cefepime HCl (Maxipime 1gm/50 ml (Pmx)) 50 ml @ 100 mls/hr Q12 IVPB Last administered on 06/21/16 09:51; Admin Dose 100 MLS/HR; Start 06/11/16 at 09:00 Enoxaparin Sodium (Lovenox) 40 mg DAILY SC Last administered on 06/21/16 09:50 ; Admin Dose 40 MG; Start 06/11/16 at 09:00 Acetaminophen (Tylenol Tab) 650 mg Q4H PRN PO PAIN AND OR ELEVATED TEMP; Start 06/10/16 at 23:30 Atorvastatin [place] (Lipitor) 10 mg DAILY@21 PO Last administered on 06/20/16 21:38; Admin Dose 10 MG; Start 06/11/16 at 21:00 Latanoprost (Xalatan) 1 drop HS BOTH EYES Last administered on 06/20/16 21:55; Admin Dose 1 DROP; Start 06/11/16 at 21:00 Famotidine (Pepcid) 20 mg DAILY PO Last administered on 06/21/16 09:46; Admin Dose 20 MG; Start 06/11/16 at 11:30 Alprazolam (Xanax) 0.5 mg Q8H PRN PO ANXIETY Last administered on 06/20/16 17: 25; Admin Dose 0.5 MG; Start 06/11/16 at 12:00 Pantoprazole (Protonix Tab) 40 mg DAILY@06 PO Last administered on 06/21/16 05: 44; Admin Dose 40 MG; Start 06/14/16 at 06:00 Diltiazem HCl (Cardizem) 30 mg Q12 PO Last administered on 06/20/16 21:39; Admin Dose 30 MG; Start 06/13/16 at 21:00 Fluconazole (Diflucan) 100 mg DAILY PO Last administered on 06/21/16 09:46; Admin Dose 100 MG; Start 06/14/16 at 10:00 Methylprednisolone Sodium Succinate (Solu-Medrol) 40 mg QAM IV Last administered on 06/21/16 09:45; Admin Dose 40 MG; Start 06/17/16 at 09:00 Losartan Potassium (Cozaar) 50 mg DAILY PO Last administered on 06/20/16 09:14 ; Admin Dose 50 MG; Start 06/20/16 at 09:00 GABRIEL MARTIN Jun 21, 2016 13:54
== END 2016-06-21 12:50 | disposition home or self-care (01) | DRG 871 ==
LOC: E/R 15:25 → MS4 20:37
PROVIDERS: ADMIT Internal Medicine; ATTEND Internal Medicine
DX: A41.9 Sepsis, unspecified organism (principal); G93.41 Metabolic encephalopathy; J18.9 Pneumonia, unspecified organism; J44.0 Chronic obstructive pulmonary disease with (acute) lower respiratory infection; I50.9 Heart failure, unspecified; D64.9 Anemia, unspecified; I47.1 Supraventricular tachycardia; I48.92 Unspecified atrial flutter; B37.9 Candidiasis, unspecified; J44.1 Chronic obstructive pulmonary disease with (acute) exacerbation; R65.20 Severe sepsis without septic shock; F17.200 Nicotine dependence, unspecified, uncomplicated; J45.909 Unspecified asthma, uncomplicated; N40.0 Benign prostatic hyperplasia without lower urinary tract symptoms; F41.9 Anxiety disorder, unspecified; H40.9 Unspecified glaucoma; J42 Unspecified chronic bronchitis
CPT/HCPCS: 36600; 71010; 80048; 80053; 80061; 81001; 81003; 82270; 82607; 82728; 82746; 82803; 83540; 83605; 83880; 84443; 84484; 85025; 85045; 85610; 85730; 87040; 87070; 87086; 87400; 93005; 93306; 94640; 94664; 97110; 97116; 97163; 97530; J0692; J1650; J2916; J2920; J2930; J3370; J7030; J7040

== ENCOUNTER 2016-06-26 11:24 | Inpatient (IN) | payer BC ==
[~2016-06-26] VITALS: Ht 162.6 cm; Wt 75.0 kg
[~2016-06-26 11:24] MED LIST changes: +DILT30TA30 PO; +LOSA50TA6 PO; +PRED20TA PO
[2016-06-26] MEDS ORDERED: CEFEPIME 2GM/50 ML (PMX) 50 ML IVPB STA (11:26)
[2016-06-26] MEDS ORDERED: ACETAMINOPHEN 325 MG TAB PO PRN (11:30)
[2016-06-26] MEDS ORDERED: VANCOMYCIN 1 GM (PMX) 250 ML IVPB ONE (11:30)
[2016-06-26] MEDS ORDERED: ONDANSETRON 4 MG INJ IV PRN (11:30)
[2016-06-26] MEDS ORDERED: SOD CHLORIDE 0.9% 1,000 ML IV STA ×2 (11:30)
--- NOTE | 2016-06-26 11:55 | RADRPT ---
PROCEDURE: Chest x-ray CLINICAL INDICATION: Shortness of breath TECHNIQUE: Chest single view COMPARISON: 06/20/2016 FINDINGS: There is stable mild cardiomegaly and an sclerotic aortic calcification. Pulmonary vessels are norm al in caliber. There is persistent elevation right hemidiaphragm. Mild bibasilar atelectasis is se en. No confluent pneumonia. Costophrenic angles sharp. Bones are osteopenic. IMPRESSION: No acute cardiopulmonary disease. Stable mild cardiomegaly and an sclerotic aortic calcification Low lung volumes with minimal basilar atelectasis RPTAT: HH .Douglas Quintana MD, MD Date Time Electronically viewed and signed by .Douglas Quintana MD, on 06/26/2016 11:55 .W/
[2016-06-26] MEDS ORDERED: PARO40TA48 PO (12:03)
[2016-06-26] MEDS ORDERED: PANT40TA3 PO (12:04)
[2016-06-26 12:05] LABS: ADD SCAN DIFF NO
[2016-06-26] MEDS ORDERED: ALPR0.5T PO (12:05)
[2016-06-26] MEDS ORDERED: RANI150T5 PO (12:06)
[2016-06-26 12:12] LABS: AADO2 Arterial 111.5 mmHg (7.0-24.0); Allen Test ACCEPTAB; Arterial Base Excess 16.9 mmol/L (-3.0-3); Arterial COHb 0.6 % (0.0-3.0); Arterial Fraction of Oxyhgb 97.3 % (93.0-99.0); Arterial HCO3 47.1 mmol/L (22.0-26.0); Arterial MetHb 0.4 % (0.0-1.5); Arterial Total Hemglobin 10.6 g/dl (12.0-18.0); Blood Gas IEPAP 15/5; MODE MASK - BIPAP
[2016-06-26 12:17] LABS: INR 0.89; PARTIAL THROMBOPLASTIN TIME 22.2 Sec (25.0-35.0); PT RATIO 0.9
[2016-06-26 12:19] LABS: ALBUMIN 2.8 g/dl (3.3-4.9); POTASSIUM 4.3 mmol/L (3.5-5.1)
[2016-06-26 12:20] LABS: ABNORMAL IP MESSAGE 1; BASOPHILS % 0.3 % (0.0-2.0); EOSINOPHILS # 0.1 10^3/ul (0.0-0.5); EOSINOPHILS % 0.4 % (0.0-7.0); HEMATOCRIT 35.1 % (42.0-52.0); HEMOGLOBIN 9.5 g/dl (14.0-18.0); LYMPHOCYTES # 0.5 10^3/ul (0.8-2.9); LYMPHOCYTES % 4.5 % (15.0-51.0); MEAN CORPUSCULAR HEMOGLOBIN 23.3 pg (29.0-33.0); MEAN CORPUSCULAR HGB CONC 27.1 g/dl (32.0-37.0); MEAN CORPUSCULAR VOLUME 86.2 fl (82.0-101.0); MEAN PLATELET VOLUME 10.5 fl (7.4-10.4); MONOCYTE # 0.8 10^3/ul (0.3-0.9); MONOCYTES % 6.7 % (0.0-11.0); NEUTROPHIL # 10.3 10^3/ul (1.6-7.5); NEUTROPHILS % 85.5 % (39.0-77.0); NUCLEATED RED BLOOD CELLS% 0.2 /100WBC (0.0-0.0); PLATELET COUNT 132 10^3/UL (140-415); RED BLOOD COUNT 4.07 10^6/ul (4.70-6.10); RED CELL DISTRIBUTION WIDTH 21.2 % (11.5-14.5)
[2016-06-26 12:21] LABS: BILIRUBIN,INDIRECT 0.3 mg/dl (0-1.1); BILIRUBIN,TOTAL 0.3 mg/dl (0.2-1.3); CREATININE 0.52 mg/dl (0.61-1.24)
[2016-06-26 12:22] LABS: ALBUMIN/GLOBULIN RATIO 1.21; TOTAL PROTEIN 5.1 g/dl (6.1-8.1)
[2016-06-26 12:33] LABS: TROPONIN-I 0.015 ng/ml (0.00-0.12)
[2016-06-26] MEDS ORDERED: SOD CHLORIDE 0.9% 500 ML IV STA (12:46)
--- NOTE | 2016-06-26 13:18 | ERA ---
ER Documentation Chief Complaint Date/Time DATE: 06/26/16 TIME: 13:15 Chief Complaint Altered level of consciousness HPI Patient is an 80-year-old male with COPD who presents altered. Please note the history and physical exam is limited secondary to the patient's altered mental status at this time. The patient is more altered than normal. He was saturating 86% on 2 L of nasal cannula at home. He has congestion. He was brought in by ambulance. He was recently admitted for COPD exacerbation. His primary doctor is Dr. Frank. ROS All systems reviewed and are negative except as per history of present illness. Medications Home Meds Active Scripts Prednisone* (Prednisone*) 20 Mg Tab, 20 MG PO DAILY for 30 Days, #30 TAB Prov:CAROLYNE FRANK MD- 06/21/16 Diltiazem Hcl* (Cardizem*) 30 Mg Tablet, 30 MG PO Q12 for 30 Days, #60 TAB Prov:CAROLYNE FRANK MD- 06/21/16 Losartan Potassium* (Losartan Potassium*) 50 Mg Tablet, 50 MG PO DAILY for 30 Days, #30 TAB Prov:CAROLYNE FRANK MD- 06/21/16 Albuterol Sulfate* (Proventil* Neb) 2.5 Mg/3 Ml Nebu, 2.5 MG HHN Q6H RESP THERAPY for 30 Days Prov:CAROLYNE FRANK MD- 12/17/13 Reported Medications Ranitidine Hcl* (Ranitidine Hcl*) 150 Mg Tablet, 150 MG PO Q12, #60 TAB 06/26/16 Alprazolam* (Xanax*) 0.5 Mg Tab, 0.5 MG PO Q8H Y for ANXIETY, TAB 06/26/16 Pantoprazole* (Protonix*) 40 Mg Tablet.dr, 40 MG PO DAILY, TAB 06/26/16 Paroxetine Hcl* (Paxil*) 40 Mg Tablet, 40 MG PO DAILY, TAB 06/26/16 Zolpidem Tartrate* (Zolpidem Tartrate*) 10 Mg Tablet, 10 MG PO HS Y for INSOMNIA , TAB 07/19/14 Aspirin (Aspirin) 81 Mg Chew, 81 MG PO DAILY 12/05/13 Travoprost* (Travatan*) 0.004%-2.5 Ml Opht, 1 DROP BOTH EYES DAILY 12/05/13 Brimonidine Tartrate* (Alphagan-P*) 0.1%-5 Ml Drop Opht, 1 DROP BOTH EYES DAILY 12/05/13 Simvastatin (Simvastatin) 10 Mg Tablet, 10 MG PO DAILY 12/05/13 Dutasteride* (Avodart*) 0.5 Mg Capsule, 0.5 MG PO weekly 12/05/13 Tamsulosin Hcl* (Flomax*) 0.4 Mg Cap.er.24h, 0.4 MG PO daily 12/05/13 Salmeterol Xinaf/Fluticasone* (Advair*) 250-50 Diskus Inhaler, 1 PUFF INH BID 12/05/13 Tiotropium Dillon* (Spiriva*) 18 Mcg Cap.w.dev, 1 INH IH DAILY 12/05/13 Albuterol Sulfate* (Proair HFA*) 8.5 Gm Hfa.aer.ad, 2 PUFF INH Q4, INH 09/13/13 Discontinued Scripts Paroxetine Hcl* (Paxil*) 20 Mg Tab, 20 MG PO QAM for 30 Days Prov:CAROLYNE FRANK MD- 12/17/13 Allergies Allergies: Coded Allergies: No Known Drug Allergy (Verified Allergy, Unknown, 06/26/16) PMhx/Soc History of Surgery: Yes (Vasectomy; teeth pulled(all of them); AAA bypass; stent in aorta; cataract ) Anesthesia Reaction: No Hx Neurological Disorder: No Hx Respiratory Disorders: Yes (copd) Hx Cardiac Disorders: Yes Hx Psychiatric Problems: No Hx Miscellaneous Medical Probl: No Hx Alcohol Use: No Hx Substance Use: No Hx Tobacco Use: Yes Smoking Status: Former smoker FmHx Unable to obtain Physical Exam Vitals Vital Signs Date Time Temp Pulse Resp B/P Pulse Ox O2 Delivery O2 Flow Rate FiO2 06/26/16 11:38 98.9 53 18 90/62 99 06/26/16 11:30 53 99 50 Physical Exam Const: Altered Head: Atraumatic Eyes: Normal Conjunctiva ENT: Normal External Ears, Nose and Mouth. Neck: Full range of motion..~ No meningismus. Resp: Decreased respirations bilaterally with low lung volumes Cardio: Regular rate and rhythm, no murmurs Abd: Soft, non tender, non distended. Normal bowel sounds Skin: Pale Back: No midline or flank tenderness Ext: No cyanosis, or edema Neur: Awake but confused and unable to follow commands Result Diagram: 06/26/16 1140 06/26/16 1140 Results 24 hrs Laboratory Tests Test 06/26/16 11:26 06/26/16 11:35 06/26/16 11:40 Arterial Blood HCO3 47.1mmol/L Arterial Blood Base Excess 16.9mmol/L Arterial Blood Oxygen Saturation 98.3mmHG Kahlil Test ACCEPTAB Arterial Blood Gas Puncture Site Right Radial Arterial Blood Carboxyhemoglobin 0.6% Arterial Blood Date Drawn 06/26/2016 12:01:55 PM Arterial Blood Methemoglobin 0.4% Arterial Blood pCO2 (Temp correct) 100.3mmhg Arterial Blood pH (Temp corrected) 7.290 Arterial Blood pO2 (Temp corrected) 132.2mmHG Blood Gas A-a O2 Differential 111.5mmHg Blood Gas Actual Respiration Rate 31 Blood Gas Critical Value Read Back DR DRAKE Blood Gas IPAP/EPAP Ratio 15/5 Blood Gas Modality MASK - BIPAP Blood Gas Notified Time 06/26/2016 12:11:50 PM Blood Gas Notified Whom JLD Blood Gas Respiration Rate 14.0 Blood Gas Specimen Source Blood arterial Blood Gas Temperature 37.0C FiO2 50.0% Oxyhemoglobin Percent 97.3% Total Hemoglobin 10.6g/dl Ammonia 15umol/l Lactic Acid Level 1.6mmol/L Activated Partial Thromboplast Time 22.2Sec Alanine Aminotransferase (ALT/SGPT) 45IU/L Albumin 2.8g/dl Albumin/Globulin Ratio 1.21 Alkaline Phosphatase 81IU/L Anion Gap 7 Aspartate Amino Transf (AST/SGOT) 22IU/L Basophils # 0.010^3/ul Basophils % 0.3% Blood Urea Nitrogen 25mg/dl Calcium Level 8.0mg/dl Carbon Dioxide Level mmol/L Chloride Level 87mmol/L Creatinine 0.52mg/dl Direct Bilirubin 0.00mg/dl Eosinophils # 0.110^3/ul Eosinophils % 0.4% Globulin 2.30g/dl Glucose Level 285mg/dl Hematocrit 35.1% Hemoglobin 9.5g/dl INR International Normalized Ratio 0.89 Indirect Bilirubin 0.3mg/dl Lymphocytes # 0.510^3/ul Lymphocytes % 4.5% Mean Corpuscular Hemoglobin 23.3pg Mean Corpuscular Hemoglobin Concent 27.1g/dl Mean Corpuscular Volume 86.2fl Mean Platelet Volume 10.5fl Monocytes # 0.810^3/ul Monocytes % 6.7% Neutrophils # 10.310^3/ul Neutrophils % 85.5% Nucleated Red Blood Cells # 0.010^3/ul Nucleated Red Blood Cells % 0.2/100WBC Platelet Count 53685^3/UL Potassium Level 4.3mmol/L Prothrombin Time 12.0Sec Prothrombin Time Ratio 0.9 Red Blood Count 4.0710^6/ul Red Cell Distribution Width 21.2% Sodium Level 138mmol/L Total Bilirubin 0.3mg/dl Total Protein 5.1g/dl Troponin I 0.015ng/ml White Blood Count 12.010^3/ul Current Medications Medications (Trade) Dose Ordered Sig/Jimmy Route PRN Reason Start Time Stop Time Status Last Admin Dose Admin Cefepime HCl 50 ml @ 100 mls/hr ONCE STAT IVPB 06/26/16 11:26 06/26/16 11:55 DC 06/26/16 12:07 Vancomycin HCl (Vancocin) 250 ml @ 125 mls/hr ONCE ONCE IVPB 06/26/16 11:30 06/26/16 13:29 06/26/16 12:07 Ondansetron HCl (Zofran Inj) 4 mg ER BRIDGE PRN IV NAUSEA AND/OR VOMITING 06/26/16 11:30 06/27/16 11:29 Acetaminophen 650 mg 650 mg ER BRIDGE PRN PO MILD PAIN/FEVER 06/26/16 11:30 06/27/16 11:29 Sodium Chloride 1,000 ml @ 1,000 mls/hr Q1H STAT IV 06/26/16 11:30 06/26/16 12:29 DC 06/26/16 12:07 Sodium Chloride 1,000 ml @ 1,000 mls/hr Q1H STAT IV 06/26/16 11:30 06/26/16 12:29 DC 06/26/16 12:09 Sodium Chloride (NS) 500 ml @ 500 mls/hr Q1H STAT IV 06/26/16 12:46 06/26/16 13:45 Procedures/MDM Chest x-ray shows no pneumonia per radiology. EKG read by me: Rate/Rhythm: Sinus tachycardia rate of 110 Intervals: Normal Impression: Sinus tachycardia without evidence of ischemia Admit MDM: Patient's infectious symptoms have not stabilized and the patient is at risk of rapid decompensation. The patient will be admitted for careful hydration, antibiotic therapy, and infectious source control. Severe Sepsis criteria: Infectious source: Bronchitis End organ damage indicated by: Respiratory failure Sepsis Management: Time of recognition of sepsis: Upon arrival Within 3 hours of recognition: Blood cultures x 2 before broad-spectrum antibiotics: Yes 30 ml/kg NS bolus Completed Initial lactate 1.6 Repeat lactate pending Time of recognition of septic shock: No septic shock Septic Shock Assessment: Any lactic acid > 4.0 No Persistent hypotension (SBP < 90 or 40 mmHg drop, MAP < 65) despite 30 mL/kg IV fluid bolus No Volume Re-assessment for Septic Shock (post 30 ml/kg bolus): No septic shock at this time Persistent Hypotension Treatment: Comfort care No Central line Not Required Vasopressor started Not required I considered further perfusion assessment with CVP measurement, SCVO2, bedside ultrasound volume assessment, passive leg raise, trial of further fluid bolus. And proceeded with 30 ml/kg fluid bolus of NSS, broad spectrum antibiotics, and admission. The patient required BiPAP therapy as he was not ventilating well. His ABG showed a PCO2 of 100 showing CO2 narcosis which is likely the cause of his altered mental status. The patient is pending a CT scan of the brain at this time. Accepting Care Team Current data and ongoing care discussed. Admitting Physician: Dr. Frank as this is the patient's primary doctor Supervisor Shop(s): None Outstanding Data: Culture results and repeat lactic acid Critical Care: Critical care time 45 minutes excluding all billable procedures Emergent fluid management while maintaining close respiratory support. Provision of immediate and broad-spectrum antibiotic therapy. Simultaneous assessment for possible sources in order to direct targeted therapy. Consideration for invasive and chemical support to prevent cardiopulmonary collapse. Departure Diagnosis: Primary Impression: Sepsis Qualified Code: A41.9 - Sepsis, due to unspecified organism Additional Impressions: CO2 narcosis Altered level of consciousness Anemia Qualified Code: D64.9 - Anemia, unspecified type Hyperglycemia Condition: Serious ANNE MARIE DRAKE MD Jun 26, 2016 13:17
[2016-06-26] MEDS ORDERED: INSULIN LISPRO 100 UNIT/ML VIAL SC STA (14:17)
--- NOTE | 2016-06-26 14:37 | RADRPT ---
PROCEDURE: CT brain without contrast CLINICAL INDICATION: Altered mental status TECHNIQUE: CT of the brain without contrast performed on a multidetector CT scanner, with multiplan ar reformats. One or more of the following dose reduction techniques were used: Automated exposure control, adjustment in mA and / or kV according to patient size, use of iterative reconstructive loraine hnique. CTDIvol = 39 mGy; DLP = 634 mGy-cm. COMPARISON: None available FINDINGS: No acute intracranial hemorrhage is identified. No extra-axial fluid collection is seen. There is no mass effect. No midline shift is identified. Ventricles and sulci are mild to moderately enlarged compatible with generalized volume loss. There are mild to moderate areas of hypodensity in the periventricular - deep white matter which are nonspecific but suggestive of chronic small vessel ischemic changes. Mejia-white differentiation ap pears preserved. Sella appears partly empty. Atherosclerotic calcifications of the proximal intracranial arteries are noted. Calvarium and skull base are unremarkable. There is partial left sphenoid sinus opacification with a fluid level. 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 IMPRESSION: 1. No evidence of acute intracranial pathology. 2. Mild to moderate volume loss, with mild to moderate chronic small vessel ischemic changes. RPTAT: VV .Sang Geronimo MD, Date Time Electronically viewed and signed by .Sang Geronimo MD, on 06/26/2016 14:37 .O/
[2016-06-26] MEDS ORDERED: FUROSEMIDE 40 MG INJ IV SCH (17:00)
--- NOTE | 2016-06-26 17:13 | CONS ---
DATE OF ADMISSION: 06/26/2016 DATE OF CONSULTATION: 06/26/2016 TYPE OF CONSULTATION: Pulmonary REASON FOR CONSULTATION: Shortness of breath. Thank you, Dr. Frnak, for this consultation. HISTORY OF PRESENT ILLNESS: This is an unfortunate 80-year-old gentleman with chronic lung disease, on supplemental O2 for many years who presented with several-day history of increasing shortness of breath, orthopnea, PND, found by his daughter who presumed that the patient had elevated pCO2. The patient in fact did have this and was initiated on noninvasive positive-pressure ventilation. Foll owing admission, he remains arousable but not consistently opening eyes or following commands. Upon further discussion with the patient's daughter, she wishes to continue noninvasive positive-pressur e ventilation but should he deteriorate, she does not want intubation or CPR. She would prefer to t donna him home with hospice if at all possible. PAST MEDICAL HISTORY: 1. Chronic hypercapnic, hypoxemic respiratory failure. 2. COPD. 3. Possible mild dementia. MEDICATIONS: Per chart. ALLERGIES: NONE. SOCIAL HISTORY: Ex-smoker, no alcohol, no history of drug use. FAMILY HISTORY: Noncontributory. SYSTEMS REVIEW: A 12-point review of systems currently unable to perform. PHYSICAL EXAMINATION: GENERAL: Elderly-appearing gentleman, appears comfortable at rest, no acute distress. VITAL SIGNS: Currently afebrile, pulse is 88, blood pressure 111/90, O2 saturation 96% on BiPAP. NECK: Supple. No JVD or lymphadenopathy. CARDIAC: S1, S2, no added sounds or murmurs. CHEST: Diminished air entry bilaterally. ABDOMEN: Soft, nontender. No guarding or rebound. EXTREMITIES: No cyanosis, clubbing, edema. NEUROLOGIC: Generalized weakness. LABORATORY DATA: The pCO2 was 100, pH 7.29. White count 12, hemoglobin 9.5, platelets within mildred l limits. BUN 25, creatinine 0.52. Lactic acid 1.6. Brain CT shows no acute abnormalities. IMPRESSION AND PLAN: 1. Acute on chronic hypercapnic respiratory failure. 2. Likely chronic obstructive pulmonary disease exacerbation. 3. Probable healthcare-associated pneumonia. 4. Possible congestive cardiac failure also. The patient will require: 1. Steroids. 2. Antibiotics. 3. Bronchodilators. 4. Supplemental O2. 5. DVT and GI prophylaxis. 6. Continue DNR/DNI. Dictated By: TRACEE CASANOVA/VICKI Conf#: [id number] DID#: [id number]
[2016-06-26] MEDS ORDERED: LEVOFLOXACIN 750MG/D5W (PMX) 150 ML IVPB SCH (17:30)
[2016-06-26 17:41] LABS: AADO2 Arterial 91.9 mmHg (7.0-24.0); Allen Test ACCEPTAB; Arterial Base Excess 13.2 mmol/L (-3.0-3); Arterial COHb 0.5 % (0.0-3.0); Arterial MetHb 0.3 % (0.0-1.5); Arterial Total Hemglobin 10.5 g/dl (12.0-18.0); Blood Gas IEPAP 20/5; Blood Gas PS 15; MODE MASK - BIPAP
[2016-06-26] MEDS ORDERED: METHYLPREDNISOLONE 125 MG INJ IV SCH (18:00)
[2016-06-26] MEDS ORDERED: BRIMONIDINE 0.1% 5 ML OPH BOTH EYES ONE (18:30)
[2016-06-26] MEDS ORDERED: DEXTROSE 50% 50 ML SYRINGE IV PRN ×2 (18:30)
[2016-06-26] MEDS ORDERED: GLUCAGON 1 MG INJ IM PRN (18:30)
[2016-06-26] MEDS ORDERED: GLUCOSE GEL 15 GRAM TUBE BUCCAL PRN (18:30)
[2016-06-26] MEDS ORDERED: GLUCOSE GEL 15 GRAM TUBE PO PRN ×2 (18:30)
--- NOTE | 2016-06-26 18:51 | HP ---
DATE OF ADMISSION: 06/26/2016 ADMITTING DIAGNOSES: 1. Altered mental status. 2. Acute respiratory failure with hypercapnia. HISTORY OF PRESENT ILLNESS: The patient is an 80-year-old male with chronic bronchitis, h ypoxemia on oxygen, steroids, and inhalers who was recently discharged from the hospital last Friday for COPD exacerbation with a tachyarrhythmia. Over the last few days, the patient has been getting progressively weaker and more altered in his mental status. The patient has been more unresponsive today and the patient's daughter called 911, after discussing this with me, and the patient was bro ught to [facility] for evaluation. The patient was found to be barely arousable o n admission with a low oxygen. The patient had arterial blood gas done showing CO2 retention with a pCO2 of 100 and a pH of 7.29. The patient was given BiPAP and his mentation has improved since pio t time when it was first started. Over the past few days, the patient has been weak and unable to ambulate. The patient also has had some swelling in his extremities as well, which was new from the hospitalization. REVIEW OF SYSTEMS: No fevers, chills, night sweats. No diarrhea, no abdominal pain. No chest pain . No headaches. No new rashes. No dysuria, no blood in the urine. PAST MEDICAL HISTORY: Chronic bronchitis with hypoxemia, anxiety, depression, BPH, hyperlipidemia, chronic anemia, chronic constipation, arthritis, history of peripheral vascular disease, also roxie henry. PAST SURGICAL HISTORY: Cataract extraction with lens implantation, AAA repair, percutaneous. FAMILY HISTORY: Noncontributory. MEDICATIONS: 1. Simvastatin 10 mg daily. 2. Paroxetine 40 mg daily. 3. Tamsulosin 0.4 mg daily. 4. Spiriva once daily. 5. Alprazolam 0.5 mg p.r.n. 6. Aspirin 81 mg daily. 7. Advair 250/50 b.i.d. 8. Alphagan 1 drop to both eyes daily. 9. Travatan 1 drop to both eyes daily. 10. Pantoprazole 40 mg daily. 11. Avodart 0.5 mg daily. SOCIAL HISTORY: The patient is a , currently lives with his daughter. No tobacco now, quit 3 months ago. Alcohol use. He is retired. PHYSICAL EXAMINATION: VITAL SIGNS: Temperature 98.9, blood pressure 111/90 but was as low as 90/62, pulse anywhere from 5 3 to 110, respirations 20, oxygen saturation 100% on FIO2 at 40% BiPAP. GENERAL: Well-developed, well-nourished male in no acute distress, lying on a gurney with BiPAP mas k in place. SKIN: Multiple purpuric lesions bilateral upper extremities, left greater than right, and also on a nterior chest, anterior right chaparro. There is a healing skin tear in the right antecubital fossa. HEENT: EOMI, PERRLA. Oropharynx difficult to examine with BiPAP mask on. On gross examination is unremarkable. NECK: No jugular venous distention, 2+ carotid upstroke without bruits. No lymphadenopathy. No th yromegaly. LUNGS: Decreased breath sounds bilateral bases with expiratory wheezing with scant rhonchi. HEART: Tachy, but regular. No ectopy. ABDOMEN: Mild distention. Normoactive bowel sounds, nondistended, nontender. No rebound, no sid s noted. GENITOURINARY: Normal male. No masses. RECTAL: Deferred. EXTREMITIES: No cyanosis, clubbing. Trace edema in the bilateral lower extremities. NEUROLOGIC: The patient is alert, answers yes/no questions. Moves all extremities, otherwise nonfo shailesh. LABORATORY EXAMINATION: White blood cell count 12.0, hemoglobin of 9.5, hematocrit of 35.1, platele ts 132. Arterial blood gas analysis: Initial one on admission: pH of 7.29, pCO2 of 100, pO2 of 13 2, oxygen saturation 98%. This is on FIO2 of 50%. On the second arterial blood gas, was a pH of 7. 28, pCO2 of 93, pO2 of 159.8, oxygen saturation 98.8 and this was on FIO2 of 50% as well. PT of 12. 0, INR 0.89, PTT of 22.2. Blood sugar 285, sodium 138, potassium 4.3, chloride of 87, bicarbonate n ot listed in the computer, BUN of 25, creatinine 0.52, calcium 8.0. Total protein 5.1, albumin 2.8. Chest x-ray shows no acute cardiopulmonary disease. Stable mild cardiomegaly and aortic calcifica tion. Lung volumes are low with minimal basilar atelectasis, otherwise no infiltrates. CT of the b rain shows no evidence of acute intracranial pathology, mild to moderate volume loss, mild to modera te chronic small vessel ischemic changes noted. IMPRESSION: The patient is an 80-year-old male with chronic bronchitis with hypoxemia, ta chyarrhythmia, hypertension, benign prostatic hypertrophy, hyperlipidemia, peripheral vascular disea se who was brought to the emergency room by ambulance for altered mental status. The patient was fo und to be hypercapnic and he improved with BiPAP. The patient will be admitted to telemetry for fur ther evaluation and treatment. 1. Hypercapnia, acute respiratory failure/chronic bronchitis. The patient with respiratory failure with hypercapnia and is improving on BiPAP. Repeat ABG shows minimal improvement in the CO2 retent ion, but the patient's mental status has improved considerably since presenting to the ER. We will continue with BiPAP as well as the breathing treatments and the inhaled, the Advair, his Spiriva as well as IV Solu-Medrol. Appreciate Dr. Pace's input into this case. The patient also being plac ed on Levaquin to cover for bacterial infection. 2. Tachyarrhythmia. The patient's heart rate currently is stable, but has some lability to it. Wi ll only use diltiazem on a p.r.n. basis 10 mg IV q.6 for heart rates above 120. 3. Benign prostatic hypertrophy. We will continue with patient's tamsulosin and Avodart. 4. Glaucoma. We will continue the patient's eyedrops. 5. CODE STATUS: The patient with increasing decline with end-stage chronic obstructive pulmonary d isease with hypoxemia requiring BiPAP. The patient and family understand overall prognosis. In spe aking with the patient's power of civil attorney for healthcare, the patient is being placed on DO NOT INT UBATE, but will continue with other noninvasive measures. Dictated By: CAROLYNE PARMAR MD SR/NTS Conf#: [id number] DID#: [id number]
[2016-06-26 20:00] VITALS: Ht 162.6 cm; Wt 75.0 kg
[2016-06-26 20:28] VITALS: BP 115/64; RESP 22
[2016-06-26 20:38] VITALS: PULSE 78
[2016-06-26] MEDS: ALBUTEROL/IPRATROPIUM (NEB) 3 ML AMP HHN SCH (20:38)
[2016-06-26] MEDS: INSULIN ASPART [NOVOLOG] 3 ML PEN SC SCH (21:00)
[2016-06-26] MEDS: METHYLPREDNISOLONE 125 MG INJ IV SCH (21:37)
[2016-06-26] MEDS: TAMSULOSIN (SR) 0.4 MG CAP PO SCH (21:38)
[2016-06-26] MEDS: FUROSEMIDE 40 MG INJ IV SCH (21:38)
[2016-06-26] MEDS: SALMETEROL/FLUTICASONE 250/50 INHA INH SCH (21:38)
[2016-06-26] MEDS: LEVOFLOXACIN 750MG/D5W (PMX) 150 ML IVPB SCH (21:39)
[2016-06-26] MEDS: SOD CHLORIDE 0.45% 1,000 ML IV SCH (22:00)
[2016-06-26 22:50] VITALS: PULSE 82
[2016-06-27] VITALS (23 sets, daily range): BP systolic 97–116; BP diastolic 55–82; PULSE 63–105; RESP 18–24
[2016-06-27] MEDS: ALBUTEROL/IPRATROPIUM (NEB) 3 ML AMP HHN SCH ×4 (01:19→19:45)
[2016-06-27] MEDS: METHYLPREDNISOLONE 125 MG INJ IV SCH ×7 (02:08→23:48)
--- NOTE | 2016-06-27 06:36 | RADRPT ---
PROCEDURE: XR Chest. CLINICAL INDICATION: Respiratory failure TECHNIQUE: Portable single view of the chest COMPARISON: 06/26/2016 FINDINGS: Lung volumes are improved compared with prior. No definite acute infiltrate or pleural effusion. C ardiomegaly and slightly tortuous and calcified aorta. IMPRESSION: Improved lung volumes. No definite acute infiltrate. Aortic atherosclerosis. . RPTAT: HLBE Dorina Calix Physician Date Time Electronically viewed and signed by Dorina Calix, Physician on 06/27/2016 06:36 BURAK/
[2016-06-27] MEDS: INSULIN ASPART [NOVOLOG] 3 ML PEN SC SCH ×4 (07:55→21:00)
[2016-06-27 08:27] LABS: AADO2 Arterial 89.2 mmHg (7.0-24.0); Allen Test ACCEPTAB; Arterial Base Excess 14.7 mmol/L (-3.0-3); Arterial COHb 0.6 % (0.0-3.0); Arterial Fraction of Oxyhgb 97.2 % (93.0-99.0); Arterial HCO3 41.8 mmol/L (22.0-26.0); Arterial MetHb 0.3 % (0.0-1.5); Arterial Total Hemglobin 9.8 g/dl (12.0-18.0); Blood Gas IEPAP 18/8; MODE MASK - BIPAP
[2016-06-27] MEDS: PAROXETINE 20 MG TAB PO SCH (09:00)
[2016-06-27] MEDS: PANTOPRAZOLE 40 MG INJ IV SCH (09:00)
[2016-06-27] MEDS: DUTASTERIDE 0.5 MG CAP PO SCH (09:00)
[2016-06-27] MEDS: FUROSEMIDE 40 MG INJ IV SCH (10:15)
[2016-06-27] MEDS: SALMETEROL/FLUTICASONE 250/50 INHA INH SCH ×2 (10:15→20:35)
[2016-06-27] MEDS: TIOTROPIUM 18 MCG CAPSULE INHA DEV INH SCH (10:15)
--- NOTE | 2016-06-27 10:31 | SP ---
MEDICAL PROGRESS NOTE: DATE OF VISIT: 06/27/2016 SUBJECTIVE: The patient is feeling somewhat better today, but still very weak. OBJECTIVE VITAL SIGNS: Temperature 97.6, pulse was 69 to 94, blood pressure 106/71, oxygen saturation 98% on FIO2 of 40% BiPAP mask. GENERAL: Well-developed, well-nourished male in no acute distress, lying in bed. CHEST: Decreased breath sounds bilaterally with end expiratory wheezing, scant rhonchi. HEART: Regular rate and rhythm. No ectopy. ABDOMEN: Soft, nontender, normoactive bowel sounds. EXTREMITIES: No cyanosis, clubbing or edema. NEUROLOGIC: Alert and oriented x2, otherwise nonfocal. LABORATORY DATA: Blood sugar 72, arterial blood gas shows a pH of 7.40, pCO2 of 68.6, pO2 of 117, oxygen saturation 98.1% on BiPAP mask FIO2 of 40%. IMAGING: Chest x-ray shows no infiltrates, increased lung volumes, otherwise unremarkable. ASSESSMENT AND PLAN: 1. Acute respiratory failure with hypercapnia/chronic bronchitis, improved with BiPAP. The patient may be able to get this removed later today with a repeat gas to see whether he continues to retain. Will hold off on any sedatives that may be contributing to patient's current problem. Continue antibiotics, steroids and nebulizer therapy. 2. Tachyarrhythmia. This is stable and the patient has not needed any diltiazem. We will continue to monitor on telemetry. 3. Encephalopathy, improved with reversal of the hypercapnia. Will continue to monitor, but at this point there is no evidence of any infection. 4. Benign prostatic hypertrophy. Continue the patient's medications. 4. Glaucoma. Continue with patient's medications. Dictated By: CAROLYNE PARMAR MD, SR/VICKI Conf#: [id number] DID#: [id number] MTDD
--- NOTE | 2016-06-27 12:16 | CONS ---
Date/Time of Note Date/Time of Note DATE: 06/27/16 TIME: 12:14 Assessment/Plan Assessment/Plan Additional Assessment/Plan Assessment and recommendations; 1. Patient admitted for severe hypercapnic respiratory failure with marked improvement in arterial blood gas with significant reduction in PCO2. Currently maintained on BiPAP. 2. Dementia. Continue current treatment. Consultation Date/Type/Reason Admit Date/Time Jun 26, 2016 at 11:30 Initial Consult Date Type of Consultation: Pulmonary 24 HR Interval Summary Free Text/Dictation Patient condition is tenuous at best. Still requiring BiPAP. Patient however is awake. Has remained hemodynamically stable. General exam; elderly male, on BiPAP currently in no distress. Exam/Review of Systems Vital Signs Vitals Vital Signs Date Time Temp Pulse Resp B/P Pulse Ox O2 Delivery O2 Flow Rate FiO2 06/27/16 11:50 78 99 40 06/27/16 11:31 97.6 18 116/82 06/26/16 15:30 BIPAP Intake and Output 06/26/16 06/26/16 06/27/16 15:00 23:00 07:00 Intake Total 150 ml 420 ml Output Total 400 ml Balance 150 ml 20 ml Exam HEENT examination; supple neck, no JVD. No lymphadenopathy. Midline trachea. No thyromegaly. Patient with bilateral intraocular lens implants. Chest examination; diminished breath sounds throughout. S1-S2 audible, no murmurs. Regular rhythm. Abdomen examination; soft, nondistended. No organomegaly. Bowel sound audible. Extremity examination; no peripheral edema. PRESSURE SUPERVISOR examination a micro patient is awake moves all 4 extremities. Follows minimal commands. Results Result Diagram: 06/26/16 1140 06/26/16 1140 Results 24 hrs Laboratory Tests Test 06/26/16 18:00 06/26/16 19:40 06/26/16 20:32 06/27/16 07:00 Arterial Blood HCO3 43.0 *H 41.8 *H Arterial Blood Base Excess 13.2 H 14.7 H Arterial Blood Oxygen Saturation 98.8 98.1 Kahlil Test ACCEPTAB ACCEPTAB Arterial Blood Gas Puncture Site Right Radial Right Radial Arterial Blood Carboxyhemoglobin 0.5 0.6 Arterial Blood Date Drawn 06/26/2016 5:30:55 PM 06/27/2016 7:52:38 AM Arterial Blood Methemoglobin 0.3 0.3 Arterial Blood pCO2 (Temp correct) 93.2 *H 68.6 H Arterial Blood pH (Temp corrected) 7.282 *L 7.403 Arterial Blood pO2 (Temp corrected) 159.8 H 117.1 H Blood Gas A-a O2 Differential 91.9 H 89.2 H Blood Gas Actual Respiration Rate 20 21 Blood Gas Critical Value Read Back TALISHA DUKES RN Blood Gas IPAP/EPAP Ratio 07/09 06/12 Blood Gas Modality MASK - BIPAP MASK - BIPAP Blood Gas Notified Time 06/26/2016 5:41:11 PM 06/27/2016 8:25:55 AM Blood Gas Notified Whom CANDIE PRESSLEY Blood Gas Pressure Support 15 Blood Gas Respiration Rate 14.0 16.0 Blood Gas Specimen Source Blood arterial Blood arterial Blood Gas Temperature 37.0 37.0 FiO2 50.0 40.0 Oxyhemoglobin Percent 98.0 97.2 Total Hemoglobin 10.5 L 9.8 L Lactic Acid Level 1.0 Bedside Glucose 72 Test 06/27/16 08:40 Bedside Glucose 113 Medications Medications Current Medications Diltiazem HCl (Cardizem Iv) 10 mg Q6 PRN IV heart rate >120; Start 06/26/16 at 18:00 Paroxetine HCl (Paxil) 20 mg AM PO ; Start 06/27/16 at 09:00 Tamsulosin HCl (Flomax) 0.4 mg QHS PO Last administered on 06/26/16 21:38; Admin Dose 0.4 MG; Start 06/26/16 at 21:00 Dutasteride (Avodart) 0.5 mg DAILY PO ; Start 06/27/16 at 09:00 Pantoprazole (Protonix Iv) 40 mg DAILY IV Last administered on 06/27/16 09:00; Admin Dose 40 MG; Start 06/26/16 at 18:30 Salmeterol Xinafoate/ Fluticasone (Advair 250/50 Diskus) 1 inh BID INH Last administered on 06/27/16 10:15; Admin Dose 1 INH; Start 06/26/16 at 21:00 Tiotropium [place] (Spiriva) 1 inh AM INH Last administered on 06/27/16 10:15; Admin Dose 1 INH; Start 06/27/16 at 09:00 Miscellaneous Information 1 ea NOTE XX ; Start 06/26/16 at 18:30 Glucose (Glutose) 15 gm Q15M PRN PO DECREASED GLUCOSE; Start 06/26/16 at 18:30 Glucose (Glutose) 22.5 gm Q15M PRN PO DECREASED GLUCOSE; Start 06/26/16 at 18:30 Dextrose (D50w Syringe) 25 ml Q15M PRN IV DECREASED GLUCOSE; Start 06/26/16 at 18:30 Dextrose (D50w Syringe) 50 ml Q15M PRN IV DECREASED GLUCOSE; Start 06/26/16 at 18:30 Glucagon (Glucagen) 1 mg Q15M PRN IM DECREASED GLUCOSE; Start 06/26/16 at 18:30 Glucose 15 gm 15 gm Q15M PRN BUCCAL DECREASED GLUCOSE; Start 06/26/16 at 18:30 Levofloxacin/ Dextrose (Levaquin 750 Mg/ D5W 150 ml (Pmx)) 150 ml @ 100 mls/hr Q24H IVPB Last administered on 06/26/16 21:39; Admin Dose 100 MLS/HR; Start 06/26/16 at 21:00 Furosemide (Lasix) 40 mg DAILY IV Last administered on 06/27/16 10:15; Admin Dose 40 MG; Start 06/26/16 at 21:00 Methylprednisolone Sodium Succinate 60 mg 60 mg Q6 IV Last administered on 05:54; Admin Dose 60 MG; Start 06/26/16 at 21:00 Sodium Chloride (1/2 NS) 1,000 ml @ 40 mls/hr Q24H IV Last administered on 06/26 22:00; Admin Dose 40 MLS/HR; Start 06/26/16 at 22:00 ROSEMARY FRANKEL Jun 27, 2016 12:16
[2016-06-27 12:23] LABS: ADD SCAN DIFF NO
[2016-06-27 12:28] LABS: ABNORMAL IP MESSAGE 1; BASOPHILS % 0.1 % (0.0-2.0); HEMATOCRIT 32.2 % (42.0-52.0); HEMOGLOBIN 8.8 g/dl (14.0-18.0); LYMPHOCYTES # 0.3 10^3/ul (0.8-2.9); MEAN CORPUSCULAR HEMOGLOBIN 23.3 pg (29.0-33.0); MEAN CORPUSCULAR HGB CONC 27.3 g/dl (32.0-37.0); MEAN CORPUSCULAR VOLUME 85.2 fl (82.0-101.0); MEAN PLATELET VOLUME 10.2 fl (7.4-10.4); MONOCYTE # 0.1 10^3/ul (0.3-0.9); MONOCYTES % 1.7 % (0.0-11.0); NEUTROPHIL # 7.7 10^3/ul (1.6-7.5); NEUTROPHILS % 93.1 % (39.0-77.0); PLATELET COUNT 118 10^3/UL (140-415); RED BLOOD COUNT 3.78 10^6/ul (4.70-6.10); WHITE BLOOD COUNT 8.3 10^3/ul (4.8-10.8)
[2016-06-27 12:38] LABS: POTASSIUM 4.6 mmol/L (3.5-5.1)
[2016-06-27 12:41] LABS: CREATININE 0.54 mg/dl (0.61-1.24)
[2016-06-27 12:42] LABS: CALCIUM 7.8 mg/dl (8.4-10.2); MAGNESIUM 1.8 mg/dl (1.7-2.5); PHOSPHORUS 3.3 mg/dl (2.5-4.9)
[2016-06-27] MEDS: LEVOFLOXACIN 750MG/D5W (PMX) 150 ML IVPB SCH (20:35)
[2016-06-27] MEDS: TAMSULOSIN (SR) 0.4 MG CAP PO SCH (20:35)
[2016-06-27] MEDS: ACYCLOVIR 500 MG in SOD CHLORIDE 0.9% 100 ML IVPB SCH (22:05)
[2016-06-27] MEDS: SOD CHLORIDE 0.45% 1,000 ML IV SCH (22:06)
[2016-06-28] VITALS (23 sets, daily range): BP systolic 90–121; BP diastolic 58–76; PULSE 63–121; RESP 16–25
[2016-06-28] MEDS: ALBUTEROL/IPRATROPIUM (NEB) 3 ML AMP HHN SCH ×4 (02:18→19:30)
[2016-06-28] MEDS: METHYLPREDNISOLONE 125 MG INJ IV SCH ×3 (05:25→18:52)
[2016-06-28] MEDS: ACYCLOVIR 500 MG in SOD CHLORIDE 0.9% 100 ML IVPB SCH ×3 (05:25→21:55)
[2016-06-28] MEDS: DILTIAZEM 25 MG INJ IV PRN (06:46)
[2016-06-28 06:54] LABS: ADD SCAN DIFF NO
[2016-06-28 07:00] LABS: ABNORMAL IP MESSAGE 1; HEMATOCRIT 32.1 % (42.0-52.0); LYMPHOCYTES # 0.4 10^3/ul (0.8-2.9); LYMPHOCYTES % 3.9 % (15.0-51.0); MEAN CORPUSCULAR HEMOGLOBIN 23.1 pg (29.0-33.0); MEAN CORPUSCULAR VOLUME 82.5 fl (82.0-101.0); MEAN PLATELET VOLUME 10.2 fl (7.4-10.4); MONOCYTE # 0.5 10^3/ul (0.3-0.9); MONOCYTES % 4.9 % (0.0-11.0); NEUTROPHIL # 9.3 10^3/ul (1.6-7.5); NEUTROPHILS % 88.9 % (39.0-77.0); NUCLEATED RED BLOOD CELLS% 0.2 /100WBC (0.0-0.0); PLATELET COUNT 152 10^3/UL (140-415); RED BLOOD COUNT 3.89 10^6/ul (4.70-6.10); RED CELL DISTRIBUTION WIDTH 21.5 % (11.5-14.5); WHITE BLOOD COUNT 10.5 10^3/ul (4.8-10.8)
[2016-06-28 07:15] LABS: POTASSIUM 4.5 mmol/L (3.5-5.1)
[2016-06-28 07:18] LABS: CREATININE 0.66 mg/dl (0.61-1.24); PHOSPHORUS 2.7 mg/dl (2.5-4.9)
[2016-06-28 07:19] LABS: CALCIUM 8.2 mg/dl (8.4-10.2); MAGNESIUM 1.9 mg/dl (1.7-2.5)
[2016-06-28] MEDS: DUTASTERIDE 0.5 MG CAP PO SCH (08:30)
[2016-06-28] MEDS: PAROXETINE 20 MG TAB PO SCH (08:30)
[2016-06-28] MEDS: FUROSEMIDE 40 MG INJ IV SCH (08:31)
[2016-06-28] MEDS: PANTOPRAZOLE 40 MG INJ IV SCH (08:31)
[2016-06-28] MEDS: TIOTROPIUM 18 MCG CAPSULE INHA DEV INH SCH (08:32)
[2016-06-28] MEDS: SALMETEROL/FLUTICASONE 250/50 INHA INH SCH ×2 (08:32→21:00)
[2016-06-28] MEDS: INSULIN ASPART [NOVOLOG] 3 ML PEN SC SCH ×4 (08:50→21:00)
--- NOTE | 2016-06-28 09:04 | PN ---
DATE: 06/28/2016 SUBJECTIVE: The patient is feeling a little bit better, but continues to feel weak and short of breath. The patient denies any pain. OBJECTIVE: VITAL SIGNS: Pulse anywhere from 75 to 116, temperature 97.5, respirations 16, blood pressure 102/70, oxygen saturation 93% on 30% FIO2 with BiPAP. GENERAL: Well-developed, well-nourished male, in no acute distress, lying in bed with a BiPAP mask. SKIN: Scattered purpuric lesions on the extremities and upper chest. There is a vesicular ulceration with a dermatomal pattern on the left buttocks that does not cross the midline. CHEST EXAM: Decreased breath sounds bilaterally, with end expiratory wheezing and coarse rhonchi with coughing. HEART: Tachycardic but regular. ABDOMEN: Soft, nontender. Mild distention. EXTREMITIES: No cyanosis, clubbing or edema. NEUROLOGIC: Alert and oriented x3, otherwise nonfocal. LABORATORY: Sodium 134, potassium 4.5, chloride 85, bicarbonate 39, BUN 27, creatinine 0.66, blood sugar 150, phosphorus 2.7, magnesium 1.9, white blood cell count 10.5, hematocrit 32.1, hemoglobin 9.0, platelets 152. Blood culture is negative x2. Influenza A and B are negative. ASSESSMENT AND PLAN: 1. Acute respiratory failure with hypercapnia/chronic bronchitis, with hypoxemia. Improved with BiPAP. Will recheck a blood gas today to see if he continues to remain stable on BiPAP. If the patient's blood gas is still good, with lower CO2, will possibly try the patient off of the BiPAP mask to see if he can sustained pCO2 without getting hypercapnic again. Will continue with antibiotics and steroids at this time. 2. Tachyarrhythmia. The patient is with fluctuating pulse rate, but has not needed any diltiazem at this time. Will continue to monitor on telemetry, as the patient is getting up into the 116 range on his pulse at times. 3. Benign prostatic hypertrophy. Continue medications. 4. Glaucoma. Continue with medications. 5. Hyperglycemia. Will continue with sliding scale insulin, as the patient has been having some elevated sugars, but not as high as when he was admitted. 6.Herpes Zoster:new; pt with vesicular lesion left buttocks in dermatomal pattern c/w Zoster; agree with meds Dictated By: CAROLYNE PARMAR MD SR/NTS Conf#: [id number] DID#: [id number]
[2016-06-28 09:57] LABS: AADO2 Arterial 65.1 mmHg (7.0-24.0); Allen Test ACCEPTAB; Arterial Base Excess 12.5 mmol/L (-3.0-3); Arterial COHb 0.3 % (0.0-3.0); Arterial Fraction of Oxyhgb 94.2 % (93.0-99.0); Arterial MetHb 0.3 % (0.0-1.5); Blood Gas IEPAP 18/8; MODE MASK - BIPAP
--- NOTE | 2016-06-28 12:10 | CONS ---
Date/Time of Note Date/Time of Note DATE: 06/28/16 TIME: 12:07 Assessment/Plan Assessment/Plan Additional Assessment/Plan Assessment recommendations; 1. Patient admitted for hypercapnic/hypoxemic respiratory failure doing well on BiPAP. ABG was reviewed from today which is showing CO2 level of 62 which likely is his baseline. Next 2. Underlying COPD. Next 3. Possibly some element of dementia. Next Continue current treatment. In 24 hours time I would recommend giving the patient a trial off BiPAP and repeat an ABG to assess his respiratory status. Consultation Date/Type/Reason Admit Date/Time Jun 26, 2016 at 11:30 Type of Consultation: Pulmonary 24 HR Interval Summary Free Text/Dictation Patient condition is stable. Still requiring continuous BiPAP. Patient is much more awake now. Has remained hemodynamically stable. General exam; elderly male, currently in no distress, awake. Exam/Review of Systems Vital Signs Vitals Vital Signs Date Time Temp Pulse Resp B/P Pulse Ox O2 Delivery O2 Flow Rate FiO2 06/28/16 11:18 97.3 118 17 116/76 95 06/28/16 09:40 30 06/26/16 15:30 BIPAP Intake and Output 06/27/16 06/27/16 06/28/16 14:59 22:59 06:59 Intake Total 270 ml 760 ml Output Total 350 ml 100 ml Balance -80 ml 660 ml Exam H EENT examination; supple neck, no JVD. No lymphadenopathy. Midline trachea. Patient is edentulous. Has bilateral intraocular lens implants. Chest examination of Josep diminished breath sounds throughout. No added salt. S1-S2 audible, no murmurs. Regular rhythm. Abdomen examination; soft, nondistended. No organomegaly. Nontender. Bowel sounds audible. Extremity exam is; no peripheral edema. Patient does not multiple ecchymosis in the upper extremities. DIRECTOR OF PATIENT SAFETY examination; patient is awake and follows simple commands. Results Result Diagram: 06/28/16 0555 06/28/16 0555 Results 24 hrs Laboratory Tests Test 06/27/16 12:47 06/27/16 18:10 06/27/16 20:37 06/28/16 05:55 Bedside Glucose 124 141 134 Anion Gap 15 Basophils # 0.0 Basophils % 0.0 Blood Urea Nitrogen 27 H Calcium Level 8.2 L Carbon Dioxide Level 39 H Chloride Level 85 L Creatinine 0.66 Eosinophils # 0.0 Eosinophils % 0.0 Glucose Level 150 Hematocrit 32.1 L Hemoglobin 9.0 L Lymphocytes # 0.4 L Lymphocytes % 3.9 L Magnesium Level 1.9 Mean Corpuscular Hemoglobin 23.1 L Mean Corpuscular Hemoglobin Concent 28.0 L Mean Corpuscular Volume 82.5 Mean Platelet Volume 10.2 Monocytes # 0.5 Monocytes % 4.9 Neutrophils # 9.3 H Neutrophils % 88.9 H Nucleated Red Blood Cells # 0.0 Nucleated Red Blood Cells % 0.2 H Phosphorus Level 2.7 Platelet Count 152 # Potassium Level 4.5 Red Blood Count 3.89 L Red Cell Distribution Width 21.5 H Sodium Level 134 L White Blood Count 10.5 # Test 06/28/16 08:12 06/28/16 08:35 Bedside Glucose 179 Arterial Blood HCO3 39.0 H Arterial Blood Base Excess 12.5 H Arterial Blood Oxygen Saturation 94.8 L Kahlil Test ACCEPTAB Arterial Blood Gas Puncture Site Right Radial Arterial Blood Carboxyhemoglobin 0.3 Arterial Blood Date Drawn 06/28/2016 9:41:52 AM Arterial Blood Methemoglobin 0.3 Arterial Blood pCO2 (Temp correct) 62.2 H Arterial Blood pH (Temp corrected) 7.415 Arterial Blood pO2 (Temp corrected) 75.7 L Blood Gas A-a O2 Differential 65.1 H Blood Gas Actual Respiration Rate 23 Blood Gas IPAP/EPAP Ratio 18/8 Blood Gas Modality MASK - BIPAP Blood Gas Notified Time 06/28/2016 9:57:41 AM Blood Gas Notified Whom JLD Blood Gas Respiration Rate 16.0 Blood Gas Specimen Source Blood arterial Blood Gas Temperature 37.0 FiO2 30.0 Oxyhemoglobin Percent 94.2 Total Hemoglobin 10.0 L Medications Medications Current Medications Diltiazem HCl (Cardizem Iv) 10 mg Q6 PRN IV heart rate >120 Last administered on 06/28/16 06:46; Admin Dose 10 MG; Start 06/26/16 at 18:00 Paroxetine HCl (Paxil) 20 mg AM PO Last administered on 06/28/16 08:30; Admin Dose 20 MG; Start 06/27/16 at 09:00 Tamsulosin HCl (Flomax) 0.4 mg QHS PO Last administered on 06/27/16 20:35; Admin Dose 0.4 MG; Start 06/26/16 at 21:00 Dutasteride (Avodart) 0.5 mg DAILY PO Last administered on 06/28/16 08:30; Admin Dose 0.5 MG; Start 06/27/16 at 09:00 Pantoprazole (Protonix Iv) 40 mg DAILY IV Last administered on 06/28/16 08:31 ; Admin Dose 40 MG; Start 06/26/16 at 18:30 Salmeterol Xinafoate/ Fluticasone (Advair 250/50 Diskus) 1 inh BID INH Last administered on 06/28/16 08:32; Admin Dose 1 INH; Start 06/26/16 at 21:00 Tiotropium [place] (Spiriva) 1 inh AM INH Last administered on 06/28/16 08:32 ; Admin Dose 1 INH; Start 06/27/16 at 09:00 Miscellaneous Information 1 ea NOTE XX ; Start 06/26/16 at 18:30 Glucose (Glutose) 15 gm Q15M PRN PO DECREASED GLUCOSE; Start 06/26/16 at 18:30 Glucose (Glutose) 22.5 gm Q15M PRN PO DECREASED GLUCOSE; Start 06/26/16 at 18:30 Dextrose (D50w Syringe) 25 ml Q15M PRN IV DECREASED GLUCOSE; Start 06/26/16 at 18:30 Dextrose (D50w Syringe) 50 ml Q15M PRN IV DECREASED GLUCOSE; Start 06/26/16 at 18:30 Glucagon (Glucagen) 1 mg Q15M PRN IM DECREASED GLUCOSE; Start 06/26/16 at 18:30 Glucose 15 gm 15 gm Q15M PRN BUCCAL DECREASED GLUCOSE; Start 06/26/16 at 18:30 Levofloxacin/ Dextrose (Levaquin 750 Mg/ D5W 150 ml (Pmx)) 150 ml @ 100 mls/hr Q24H IVPB Last administered on 06/27/16 20:35; Admin Dose 100 MLS/HR; Start 06/26/16 at 21:00 Furosemide (Lasix) 40 mg DAILY IV Last administered on 06/28/16 08:31; Admin Dose 40 MG; Start 06/26/16 at 21:00 Methylprednisolone Sodium Succinate 60 mg 60 mg Q6 IV Last administered on 12:00; Admin Dose 60 MG; Start 06/26/16 at 21:00 Sodium Chloride 1,000 ml @ 40 mls/hr Q24H IV Last administered on 06/27/16 22: 06; Admin Dose 40 MLS/HR; Start 06/26/16 at 22:00 Acyclovir/Sodium Chloride (Zovirax/NS) 100 ml @ 100 mls/hr Q8 IVPB Last administered on 06/28/16 05:25; Admin Dose 100 MLS/HR; Start 06/27/16 at 22:00 ROSEMARY FRANKEL Jun 28, 2016 12:10
[2016-06-28] MEDS: TAMSULOSIN (SR) 0.4 MG CAP PO SCH (21:00)
[2016-06-28] MEDS: LEVOFLOXACIN 750MG/D5W (PMX) 150 ML IVPB SCH (21:51)
[2016-06-29] VITALS (14 sets, daily range): BP systolic 109–138; BP diastolic 66–82; PULSE 109–153; RESP 18–20
[2016-06-29] MEDS: ALBUTEROL/IPRATROPIUM (NEB) 3 ML AMP HHN SCH ×6 (01:29→21:30)
[2016-06-29] MEDS: ACYCLOVIR 500 MG in SOD CHLORIDE 0.9% 100 ML IVPB SCH ×3 (06:06→22:14)
[2016-06-29] MEDS: METHYLPREDNISOLONE 125 MG INJ IV SCH ×4 (06:06→17:11)
[2016-06-29 06:10] LABS: ADD SCAN DIFF NO
[2016-06-29 06:29] LABS: ABNORMAL IP MESSAGE 1; HEMOGLOBIN 8.3 g/dl (14.0-18.0); LYMPHOCYTES # 0.2 10^3/ul (0.8-2.9); LYMPHOCYTES % 2.3 % (15.0-51.0); MEAN CORPUSCULAR HEMOGLOBIN 23.5 pg (29.0-33.0); MEAN CORPUSCULAR HGB CONC 28.6 g/dl (32.0-37.0); MEAN CORPUSCULAR VOLUME 82.2 fl (82.0-101.0); MEAN PLATELET VOLUME 10.4 fl (7.4-10.4); MONOCYTE # 0.6 10^3/ul (0.3-0.9); MONOCYTES % 6.4 % (0.0-11.0); NEUTROPHIL # 7.9 10^3/ul (1.6-7.5); NEUTROPHILS % 89.9 % (39.0-77.0); PLATELET COUNT 142 10^3/UL (140-415); RED BLOOD COUNT 3.53 10^6/ul (4.70-6.10); RED CELL DISTRIBUTION WIDTH 21.8 % (11.5-14.5); WHITE BLOOD COUNT 8.8 10^3/ul (4.8-10.8)
[2016-06-29 06:55] LABS: ALBUMIN 2.9 g/dl (3.3-4.9)
[2016-06-29 06:58] LABS: BILIRUBIN,INDIRECT 0.2 mg/dl (0-1.1); BILIRUBIN,TOTAL 0.2 mg/dl (0.2-1.3); CREATININE 0.65 mg/dl (0.61-1.24)
[2016-06-29 06:59] LABS: ALBUMIN/GLOBULIN RATIO 1.26; CALCIUM 8.4 mg/dl (8.4-10.2); TOTAL PROTEIN 5.2 g/dl (6.1-8.1)
[2016-06-29] MEDS: INSULIN ASPART [NOVOLOG] 3 ML PEN SC SCH ×4 (07:55→21:00)
[2016-06-29] MEDS: SOD CHLORIDE 0.45% 1,000 ML IV SCH ×2 (08:10→14:06)
[2016-06-29] MEDS: PANTOPRAZOLE 40 MG INJ IV SCH (08:20)
[2016-06-29] MEDS: DUTASTERIDE 0.5 MG CAP PO SCH (08:20)
[2016-06-29] MEDS: SALMETEROL/FLUTICASONE 250/50 INHA INH SCH ×2 (08:20→21:15)
[2016-06-29] MEDS: PAROXETINE 20 MG TAB PO SCH (08:20)
[2016-06-29] MEDS: FUROSEMIDE 40 MG INJ IV SCH (08:21)
[2016-06-29] MEDS: DILTIAZEM 25 MG INJ IV PRN (09:02)
[2016-06-29] MEDS: TIOTROPIUM 18 MCG CAPSULE INHA DEV INH SCH (09:25)
[2016-06-29] MEDS: LORAZEPAM 2 MG INJ IV PRN ×2 (09:26→15:17)
--- NOTE | 2016-06-29 12:32 | CONS ---
Date/Time of Note Date/Time of Note DATE: 06/29/16 TIME: 12:30 Assessment/Plan Assessment/Plan Additional Assessment/Plan Assessment and recommendations; 1. Patient admitted for severe hypoxemic and hypercapnic respiratory failure with clinical improvement currently maintained on BiPAP. 2. History of dementia. Continue current treatment. Prognosis is poor. Consultation Date/Type/Reason Admit Date/Time Jun 26, 2016 at 11:30 Type of Consultation: Pulmonary 24 HR Interval Summary Free Text/Dictation Patient condition is stable. Still requiring continuous BiPAP. Remains awake and alert. General exam; elderly male, currently in no distress. Exam/Review of Systems Vital Signs Vitals Vital Signs Date Time Temp Pulse Resp B/P Pulse Ox O2 Delivery O2 Flow Rate FiO2 06/29/16 11:41 98.1 113 18 132/66 96 06/29/16 08:49 40 06/26/16 15:30 BIPAP Intake and Output 06/28/16 06/28/16 06/29/16 15:00 23:00 07:00 Intake Total 200 ml 650 ml Output Total 250 ml Balance -50 ml 650 ml Exam H EENT examination; supple neck, no JVD. No lymphadenopathy. Midline trachea. No thyromegaly. Chest examination; diminished breath sounds throughout. No added sounds. S1- S2 audible, no murmurs. Regular rhythm. Abdomen examination; soft, nondistended. No organomegaly. Bowel sounds audible. Extremity exam; no peripheral edema. DIVE MASTER examination; patient is awake and follows simple commands. Moves all 4 extremities. Results Result Diagram: 06/29/16 0530 06/29/16 0535 Results 24 hrs Laboratory Tests Test 06/28/16 13:19 06/28/16 18:48 06/28/16 21:53 06/29/16 05:30 Bedside Glucose 151 126 130 Basophils # 0.0 Basophils % 0.0 Eosinophils # 0.0 Eosinophils % 0.0 Hematocrit 29.0 L Hemoglobin 8.3 L Lymphocytes # 0.2 L Lymphocytes % 2.3 L Mean Corpuscular Hemoglobin 23.5 L Mean Corpuscular Hemoglobin Concent 28.6 L Mean Corpuscular Volume 82.2 Mean Platelet Volume 10.4 Monocytes # 0.6 Monocytes % 6.4 Neutrophils # 7.9 H Neutrophils % 89.9 H Nucleated Red Blood Cells # 0.0 Nucleated Red Blood Cells % 0.0 Platelet Count 142 Red Blood Count 3.53 L Red Cell Distribution Width 21.8 H White Blood Count 8.8 Test 06/29/16 05:35 06/29/16 07:39 06/29/16 11:25 Alanine Aminotransferase (ALT/SGPT) 49 Albumin 2.9 L Albumin/Globulin Ratio 1.26 Alkaline Phosphatase 77 Anion Gap 11 Aspartate Amino Transf (AST/SGOT) 34 Blood Urea Nitrogen 25 H Calcium Level 8.4 Carbon Dioxide Level 43 *H Chloride Level 86 L Creatinine 0.65 Direct Bilirubin 0.00 Globulin 2.30 Glucose Level 98 # Indirect Bilirubin 0.2 Potassium Level 4.0 Sodium Level 136 Total Bilirubin 0.2 Total Protein 5.2 L Bedside Glucose 107 125 Medications Medications Current Medications Diltiazem HCl (Cardizem Iv) 10 mg Q6 PRN IV heart rate >120 Last administered on 06/29/16 09:02; Admin Dose 10 MG; Start 06/26/16 at 18:00 Paroxetine HCl (Paxil) 20 mg AM PO Last administered on 06/29/16 08:20; Admin Dose 20 MG; Start 06/27/16 at 09:00 Tamsulosin HCl (Flomax) 0.4 mg QHS PO Last administered on 06/27/16 20:35; Admin Dose 0.4 MG; Start 06/26/16 at 21:00 Dutasteride (Avodart) 0.5 mg DAILY PO Last administered on 06/29/16 08:20; Admin Dose 0.5 MG; Start 06/27/16 at 09:00 Pantoprazole (Protonix Iv) 40 mg DAILY IV Last administered on 06/29/16 08:20 ; Admin Dose 40 MG; Start 06/26/16 at 18:30 Salmeterol Xinafoate/ Fluticasone (Advair 250/50 Diskus) 1 inh BID INH Last administered on 06/29/16 08:20; Admin Dose 1 INH; Start 06/26/16 at 21:00 Tiotropium [place] (Spiriva) 1 inh AM INH Last administered on 06/29/16 09:25 ; Admin Dose 1 INH; Start 06/27/16 at 09:00 Miscellaneous Information 1 ea NOTE XX ; Start 06/26/16 at 18:30 Glucose (Glutose) 15 gm Q15M PRN PO DECREASED GLUCOSE; Start 06/26/16 at 18:30 Glucose (Glutose) 22.5 gm Q15M PRN PO DECREASED GLUCOSE; Start 06/26/16 at 18:30 Dextrose (D50w Syringe) 25 ml Q15M PRN IV DECREASED GLUCOSE; Start 06/26/16 at 18:30 Dextrose (D50w Syringe) 50 ml Q15M PRN IV DECREASED GLUCOSE; Start 06/26/16 at 18:30 Glucagon (Glucagen) 1 mg Q15M PRN IM DECREASED GLUCOSE; Start 06/26/16 at 18:30 Glucose 15 gm 15 gm Q15M PRN BUCCAL DECREASED GLUCOSE; Start 06/26/16 at 18:30 Levofloxacin/ Dextrose (Levaquin 750 Mg/ D5W 150 ml (Pmx)) 150 ml @ 100 mls/hr Q24H IVPB Last administered on 06/28/16 21:51; Admin Dose 100 MLS/HR; Start at 21:00 Furosemide (Lasix) 40 mg DAILY IV Last administered on 06/29/16 08:21; Admin Dose 40 MG; Start 06/26/16 at 21:00 Methylprednisolone Sodium Succinate 60 mg 60 mg Q6 IV Last administered on 06/29 11:26; Admin Dose 60 MG; Start 06/26/16 at 21:00 Sodium Chloride 1,000 ml @ 40 mls/hr Q24H IV Last administered on 06/27/16 22: 06; Admin Dose 40 MLS/HR; Start 06/26/16 at 22:00 Acyclovir/Sodium Chloride (Zovirax/NS) 100 ml @ 100 mls/hr Q8 IVPB Last administered on 06/29/16 06:06; Admin Dose 100 MLS/HR; Start 06/27/16 at 22:00 Lorazepam (Ativan) 0.5 mg Q4H PRN IV ANXIETY Last administered on 06/29/16 09: 26; Admin Dose 0.5 MG; Start 06/29/16 at 09:30 ROSEMARY FRANKEL Jun 29, 2016 12:32
[2016-06-29] MEDS: TAMSULOSIN (SR) 0.4 MG CAP PO SCH (21:15)
[2016-06-29] MEDS: LEVOFLOXACIN 750MG/D5W (PMX) 150 ML IVPB SCH (21:15)
[2016-06-30] VITALS (21 sets, daily range): BP systolic 100–140; BP diastolic 61–79; PULSE 93–157; RESP 18–20
[2016-06-30] MEDS: METHYLPREDNISOLONE 125 MG INJ IV SCH ×4 (00:06→17:37)
[2016-06-30] MEDS: ALBUTEROL/IPRATROPIUM (NEB) 3 ML AMP HHN SCH ×6 (00:48→20:23)
[2016-06-30 05:58] LABS: ADD SCAN DIFF NO
[2016-06-30] MEDS: ACYCLOVIR 500 MG in SOD CHLORIDE 0.9% 100 ML IVPB SCH ×3 (06:01→22:17)
--- NOTE | 2016-06-30 06:07 | PN ---
DATE: 06/29/2016 SUBJECTIVE: The patient is sleeping; responds minimally. The patient has a BiPAP mask on and is in soft restraints because he is disoriented and attempting to remove his BiPAP apparatus. OBJECTIVE CHEST: Clear to A and P. HEART: Normal sinus rhythm. No murmur. No enlargement. ABDOMEN: Liver, kidneys, and spleen are not palpable. Bowel sounds are normal. There are no intra -abdominal masses or bruits. The patient has extensive areas of purpura over both upper extremities : No ankle edema. LABORATORY DATA: White blood cell count was 8.8 thousand, hemoglobin is 8.3, hematocrit is 29%, nick telet count is normal. Arterial blood gases on 06/28/2016 revealed a pCO2 of 62.2, pO2 of 75.7, pH was 7.415, base excess was 12.5. The patient is on BiPAP. INR is 0.89. Sodium is 136, potassium i s 4, chloride is 86, carbon dioxide is 43, BUN is 25, creatinine is 0.65, glucose is 98. Blood cult ure was negative after 3 days. RADIOGRAPHIC DATA: Chest x-ray on 06/26/2016 showed improving lung volumes; no definite acute infil trate; aortic atherosclerosis. Brain CT scan revealed no evidence of acute intracranial pathology; mild to moderate volume loss, with mild to moderate chronic small vessel ischemic changes. The patient's blood gases are much improved on BiPAP. The patient attempted to remove the BiPAP delia aratus and had to be placed on soft restraints, which he currently is on. status is a DO NOT INTUBATE/DO NOT RESUSCITATE. Dictated By: SAMMY CHOU/VICKI Conf#: [id number] DID#: [id number]
[2016-06-30 06:10] LABS: ABNORMAL IP MESSAGE 1; BASOPHILS % 0.1 % (0.0-2.0); HEMATOCRIT 27.6 % (42.0-52.0); HEMOGLOBIN 8.1 g/dl (14.0-18.0); LYMPHOCYTES # 0.2 10^3/ul (0.8-2.9); LYMPHOCYTES % 2.6 % (15.0-51.0); MEAN CORPUSCULAR HEMOGLOBIN 23.8 pg (29.0-33.0); MEAN CORPUSCULAR HGB CONC 29.3 g/dl (32.0-37.0); MEAN CORPUSCULAR VOLUME 81.2 fl (82.0-101.0); MEAN PLATELET VOLUME 9.5 fl (7.4-10.4); MONOCYTE # 0.5 10^3/ul (0.3-0.9); MONOCYTES % 5.6 % (0.0-11.0); NEUTROPHIL # 7.4 10^3/ul (1.6-7.5); NEUTROPHILS % 90.8 % (39.0-77.0); PLATELET COUNT 116 10^3/UL (140-415); RED CELL DISTRIBUTION WIDTH 21.3 % (11.5-14.5); WHITE BLOOD COUNT 8.2 10^3/ul (4.8-10.8)
[2016-06-30 06:22] LABS: POTASSIUM 3.2 mmol/L (3.5-5.1)
[2016-06-30 06:25] LABS: CREATININE 0.7 mg/dl (0.61-1.24)
[2016-06-30 06:26] LABS: CALCIUM 8.2 mg/dl (8.4-10.2)
[2016-06-30] MEDS: INSULIN ASPART [NOVOLOG] 3 ML PEN SC SCH ×4 (07:55→21:00)
[2016-06-30] MEDS ORDERED: POTASSIUM CHLORIDE (SR) 20 MEQ TAB PO STA (08:02)
[2016-06-30] MEDS: TIOTROPIUM 18 MCG CAPSULE INHA DEV INH SCH (09:01)
[2016-06-30] MEDS: SALMETEROL/FLUTICASONE 250/50 INHA INH SCH ×2 (09:01→21:24)
[2016-06-30] MEDS: PANTOPRAZOLE 40 MG INJ IV SCH (09:02)
[2016-06-30] MEDS: FUROSEMIDE 40 MG INJ IV SCH (09:03)
[2016-06-30] MEDS: PAROXETINE 20 MG TAB PO SCH (09:03)
[2016-06-30] MEDS: LORAZEPAM 2 MG INJ IV PRN (09:04)
[2016-06-30] MEDS: POTASSIUM CHLORIDE 30 MEQ in SOD CHLORIDE 0.45% 1,000 ML IV SCH (10:57)
[2016-06-30] MEDS: DUTASTERIDE 0.5 MG CAP PO SCH (11:00)
[2016-06-30] MEDS: FERROUS FUMARATE (SR) TAB PO SCH (11:00)
[2016-06-30] MEDS: LEVOFLOXACIN 750MG/D5W (PMX) 150 ML IVPB SCH (21:22)
[2016-06-30] MEDS: TAMSULOSIN (SR) 0.4 MG CAP PO SCH (21:22)
[2016-07-01] VITALS (22 sets, daily range): BP systolic 100–125; BP diastolic 56–99; PULSE 100–123; RESP 18–20
[2016-07-01] MEDS: POTASSIUM CHLORIDE 30 MEQ in SOD CHLORIDE 0.45% 1,000 ML IV SCH ×3 (00:29→15:07)
[2016-07-01] MEDS: ALBUTEROL/IPRATROPIUM (NEB) 3 ML AMP HHN SCH ×6 (00:36→20:54)
--- NOTE | 2016-07-01 04:05 | PN ---
DATE: SUBJECTIVE: The patient is awake and cooperative. OBJECTIVE: VITAL SIGNS: Temperature is 98.8. Blood pressure is 125/79. CHEST: Clear to A and P. HEART: Normal sinus rhythm. ABDOMEN: Liver, kidneys, spleen are not palpable. Bowel sounds are normal. EXTREMITIES: No ankle edema. The patient is still on BiPAP and still requires soft restraints because he is slightly disoriented and wishes to take off his BiPAP. LABORATORY DATA: White blood cell count 8200, hemoglobin 8.1, hematocrit 27.6, platelet count 116,0 00. Electrolytes: Sodium 125, potassium 3.2, chloride 86, carbon dioxide 38, BUN 25, creatinine 0. 7, glucose 80, calcium 8.2. Blood culture shows no growth after 4 days. Influenza A serology negat walt, influenza B serology negative. The patient is to be given potassium in his IVs. Dictated By: SAMMY CHOU/VICKI Conf#: [id number] DID#: [id number]
[2016-07-01] MEDS: METHYLPREDNISOLONE 125 MG INJ IV SCH ×5 (06:58→23:34)
[2016-07-01 07:19] LABS: ADD SCAN DIFF NO
[2016-07-01 07:29] LABS: ABNORMAL IP MESSAGE 1; HEMATOCRIT 26.7 % (42.0-52.0); HEMOGLOBIN 7.6 g/dl (14.0-18.0); LYMPHOCYTES # 0.2 10^3/ul (0.8-2.9); LYMPHOCYTES % 2.6 % (15.0-51.0); MEAN CORPUSCULAR HEMOGLOBIN 23.5 pg (29.0-33.0); MEAN CORPUSCULAR HGB CONC 28.5 g/dl (32.0-37.0); MEAN CORPUSCULAR VOLUME 82.4 fl (82.0-101.0); MEAN PLATELET VOLUME 9.7 fl (7.4-10.4); MONOCYTE # 0.4 10^3/ul (0.3-0.9); MONOCYTES % 5.5 % (0.0-11.0); NEUTROPHIL # 7.1 10^3/ul (1.6-7.5); NEUTROPHILS % 90.7 % (39.0-77.0); NUCLEATED RED BLOOD CELLS% 0.3 /100WBC (0.0-0.0); PLATELET COUNT 98 10^3/UL (140-415); RED BLOOD COUNT 3.24 10^6/ul (4.70-6.10); RED CELL DISTRIBUTION WIDTH 21.8 % (11.5-14.5); WHITE BLOOD COUNT 7.8 10^3/ul (4.8-10.8)
[2016-07-01 07:49] LABS: POTASSIUM 3.7 mmol/L (3.5-5.1)
[2016-07-01 07:51] LABS: CREATININE 0.69 mg/dl (0.61-1.24)
[2016-07-01 07:52] LABS: CALCIUM 8.2 mg/dl (8.4-10.2)
[2016-07-01] MEDS: INSULIN ASPART [NOVOLOG] 3 ML PEN SC SCH ×4 (08:00→21:00)
[2016-07-01] MEDS: ACYCLOVIR 500 MG in SOD CHLORIDE 0.9% 100 ML IVPB SCH ×3 (08:48→23:29)
[2016-07-01] MEDS: SALMETEROL/FLUTICASONE 250/50 INHA INH SCH ×2 (08:49→21:00)
[2016-07-01] MEDS: PAROXETINE 20 MG TAB PO SCH (09:00)
[2016-07-01] MEDS: DUTASTERIDE 0.5 MG CAP PO SCH (09:00)
[2016-07-01] MEDS: FERROUS FUMARATE (SR) TAB PO SCH (09:00)
[2016-07-01] MEDS: FUROSEMIDE 40 MG INJ IV SCH (12:55)
[2016-07-01] MEDS: PANTOPRAZOLE 40 MG INJ IV SCH (13:00)
--- NOTE | 2016-07-01 13:47 | PN ---
DATE: 07/01/2016 SUBJECTIVE: The patient continues to feel weak, out of breath. OBJECTIVE: VITAL SIGNS: Temperature 97.5, pulse anywhere from 50 up to 123, respiratory rate 18-20, blood pres sure 107/67, oxygen saturation anywhere from 95 to 100% on 2 liter face mask with BiPAP. GENERAL: Well-developed male in no acute distress, lying in bed with mild dyspnea. SKIN: Multiple purpuric lesions on the extremities. There is healing fascicular rash with ulcerati ons on the left buttock. CHEST: Decreased breath sounds bilaterally with increased expiratory phase and scant rhonchi. HEART: Tachycardic, regular. ABDOMEN: Soft, nontender, nondistended. NEUROLOGIC: Alert and oriented x2. Otherwise nonfocal. LABORATORY EXAMINATION: White blood cell count 7.8, hemoglobin of 7.6, hematocrit 26.7, platelets 9 8. Sodium 135, potassium 3.7, chloride of 89, bicarbonate 40, BUN of 26, creatinine 0.69, albumin 2 .4, blood sugar 98, 91, and 99. ASSESSMENT AND PLAN: 1. Acute respiratory failure with hypercapnia and hypoxemia/chronic bronchitis. The patient is a l ittle bit better today. Will try patient off of the BiPAP and recheck a blood gas on nasal cannula oxygen to see if he continues to retain CO2 off of the BiPAP, as well as his oxygenation. If patien t decompensate further, he will have to go back on BiPAP, and I will have to discuss with family fur ther measures for long-term care. 2. Tachyarrhythmia. This has been stable. The patient continues to require telemetry and has hear t rates anywhere from 50-125. We will continue telemetry monitoring and p.r.n. diltiazem. 3. Benign prostatic hypertrophy. Continue with medications. 4. Glaucoma. Continue with patient's medications. 5. Hyperglycemia. Continue with sliding scale insulin, but patient has not required any at this ti nh. Dictated By: CAROLYNE PARMAR MD SR/NTS Conf#: [id number] DID#: [id number]
[2016-07-01] MEDS ORDERED: BISACODYL 10 MG SUPP PR ONE (14:00)
[2016-07-01] MEDS: TIOTROPIUM 18 MCG CAPSULE INHA DEV INH SCH (15:06)
[2016-07-01 16:00] LABS: AADO2 Arterial 25.6 mmHg (7.0-24.0); Allen Test ACCEPTAB; Arterial Base Excess 11.4 mmol/L (-3.0-3); Arterial COHb 0.3 % (0.0-3.0); Arterial Fraction of Oxyhgb 95.9 % (93.0-99.0); Arterial HCO3 37.7 mmol/L (22.0-26.0); Arterial MetHb 0.4 % (0.0-1.5); Arterial Total Hemglobin 9.5 g/dl (12.0-18.0); MODE NASAL CANNULA
--- NOTE | 2016-07-01 17:11 | PN ---
DATE: 07/01/2016 SUBJECTIVE: Mr. Andrew remains stable this afternoon off BiPAP, awake, alert, oriented, talking in f ull and complete sentences. He says he is reluctant to resume BiPAP therapy. PHYSICAL EXAMINATION: VITAL SIGNS: Temperature 98, pulse is 100, blood pressure 107/60, O2 saturation 96%, FIO2 of 3 lite rs. NECK: Supple. No JVD or lymphadenopathy. CARDIAC: S1, S2, no added sounds or murmurs. CHEST: Diminished air entry bilaterally. ABDOMEN: Soft, nontender. No guarding or rebound. EXTREMITIES: No cyanosis, clubbing, edema. NEUROLOGIC: Grossly intact. No focal deficits. IMPRESSION AND PLAN: 1. Chronic obstructive pulmonary disease with exacerbation. 2. Acute on chronic hypercapnic respiratory failure. 3. Possible component of community-acquired pneumonia also. The patient will require: 1. Steroid taper. 2. IV Lasix. 3. Continue antibiotics. 4. Inhalers. 5. Encourage nocturnal noninvasive positive pressure ventilation. If patient remains noncompliant given his advanced lung disease palliative care consult may be more appropriate. Dictated By: TRACEE CASANOVA/VICKI Conf#: [id number] DID#: [id number]
[2016-07-01] MEDS: TAMSULOSIN (SR) 0.4 MG CAP PO SCH (20:59)
[2016-07-01] MEDS: LEVOFLOXACIN 750MG/D5W (PMX) 150 ML IVPB SCH (20:59)
[2016-07-02] VITALS (19 sets, daily range): BP systolic 85–121; BP diastolic 56–78; PULSE 105–130; RESP 17–20
[2016-07-02] MEDS: ALBUTEROL/IPRATROPIUM (NEB) 3 ML AMP HHN SCH ×6 (00:55→20:31)
[2016-07-02] MEDS: ACYCLOVIR 500 MG in SOD CHLORIDE 0.9% 100 ML IVPB SCH ×3 (05:07→23:57)
[2016-07-02] MEDS: METHYLPREDNISOLONE 125 MG INJ IV SCH ×4 (05:07→23:57)
[2016-07-02] MEDS: POTASSIUM CHLORIDE 30 MEQ in SOD CHLORIDE 0.45% 1,000 ML IV SCH ×3 (05:07→23:57)
[2016-07-02 07:57] LABS: ADD SCAN DIFF NO
[2016-07-02] MEDS: INSULIN ASPART [NOVOLOG] 3 ML PEN SC SCH ×4 (08:00→21:00)
[2016-07-02 08:07] LABS: ABNORMAL IP MESSAGE 1; HEMATOCRIT 29.3 % (42.0-52.0); HEMOGLOBIN 8.4 g/dl (14.0-18.0); LYMPHOCYTES # 0.1 10^3/ul (0.8-2.9); LYMPHOCYTES % 1.3 % (15.0-51.0); MEAN CORPUSCULAR HEMOGLOBIN 23.3 pg (29.0-33.0); MEAN CORPUSCULAR HGB CONC 28.7 g/dl (32.0-37.0); MEAN CORPUSCULAR VOLUME 81.4 fl (82.0-101.0); MEAN PLATELET VOLUME 10.2 fl (7.4-10.4); MONOCYTE # 0.3 10^3/ul (0.3-0.9); MONOCYTES % 3.3 % (0.0-11.0); NEUTROPHIL # 8.4 10^3/ul (1.6-7.5); NEUTROPHILS % 94.6 % (39.0-77.0); NUCLEATED RED BLOOD CELLS% 0.3 /100WBC (0.0-0.0); PLATELET COUNT 117 10^3/UL (140-415); RED CELL DISTRIBUTION WIDTH 21.7 % (11.5-14.5); WHITE BLOOD COUNT 8.9 10^3/ul (4.8-10.8)
[2016-07-02] MEDS: PANTOPRAZOLE 40 MG INJ IV SCH (08:26)
[2016-07-02] MEDS: TIOTROPIUM 18 MCG CAPSULE INHA DEV INH SCH (08:27)
[2016-07-02] MEDS: SALMETEROL/FLUTICASONE 250/50 INHA INH SCH ×2 (08:28→21:49)
[2016-07-02 08:31] LABS: CALCIUM 8.2 mg/dl (8.4-10.2); CREATININE 0.76 mg/dl (0.61-1.24)
[2016-07-02] MEDS: FUROSEMIDE 40 MG INJ IV SCH (08:41)
[2016-07-02] MEDS: FERROUS FUMARATE (SR) TAB PO SCH (08:41)
[2016-07-02] MEDS: DUTASTERIDE 0.5 MG CAP PO SCH (08:42)
[2016-07-02] MEDS: PAROXETINE 20 MG TAB PO SCH (08:42)
[2016-07-02 09:09] LABS: AADO2 Arterial 50.4 mmHg (7.0-24.0); Allen Test ACCEPTAB; Arterial Base Excess 11.5 mmol/L (-3.0-3); Arterial COHb 0.3 % (0.0-3.0); Arterial Fraction of Oxyhgb 96.1 % (93.0-99.0); Arterial HCO3 36.7 mmol/L (22.0-26.0); Arterial MetHb 0.2 % (0.0-1.5); Arterial Total Hemglobin 9.6 g/dl (12.0-18.0); Blood Gas IEPAP 18/8; MODE MASK - BIPAP
--- NOTE | 2016-07-02 10:03 | RADRPT ---
PROCEDURE: XR Chest. CLINICAL INDICATION: Shortness of breath. TECHNIQUE: Single frontal view. COMPARISON: 06/27/2016. FINDINGS: The lungs are clear. The heart size is normal. There is calcification in the aorta consistent with atherosclerosis. There is no pleural effusion. There is no pneumothorax. IMPRESSION: 1. Atherosclerosis. 2. Clear lungs. RPTAT: QQ .Reginaldo Harper MD, MD Date Time Electronically viewed and signed by .Reginaldo Harper MD, MD on 07/02/2016 10:02 .R/
--- NOTE | 2016-07-02 13:54 | PN ---
DATE: 07/02/2016 SUBJECTIVE: The patient is feeling more anxious and less short of breath. OBJECTIVE: VITAL SIGNS: Temperature 98.1, pulse 90 to 120, respirations 20, blood pressure 112/78, oxygen saturation 96% on 2 liters. GENERAL: Well-developed, well-nourished male, mild respiratory distress, lying in bed. SKIN: Multiple purpuric lesions, bilateral upper extremities and chest wall. CHEST: Decreased breath sounds bilateral bases with coarse rhonchi. HEART: Tachycardic and regular. EXTREMITIES: No cyanosis, clubbing. Mild edema, right elbow. Arterial blood gas on BiPAP shows 7.46 pH, pCO2 of 52, pO2 of 87.8, oxygen saturation 96.6% Chemistry: Sodium 134, potassium 4.0, chloride 87, bicarbonate 39, BUN 24, creatinine 0.76, blood sugar 101. Chest x-ray shows no interval change. ASSESSMENT AND PLAN: 1. Acute respiratory failure with hypercapnia, improved. Patient is doing better with BiPAP as well as on nasal cannula O2, but patient has desaturations. Will continue with intermittent BiPAP, encourage breathing exercises, and continue antibiotics, steroids, and inhalers. 2. Anxiety. Will restart patient's alprazolam, but at a lower dosage, and remove it if patient becomes sedated again and tends to retain CO2. 3. Tachyarrhythmia, stable with intermittent tachyarrhythmia, but no need for diltiazem at this time. 4. Benign prostatic hypertrophy, stable. Continue with medications. 5. Glaucoma, stable. Continue with medications. 6.Shingles:improved; will continue with meds Dictated By: CAROLYNE PARMAR MD SR/VICKI Conf#: [id number] DID#: [id number] MTDD
[2016-07-02] MEDS: ALPRAZOLAM 0.25 MG TAB PO SCH ×2 (15:32→21:51)
--- NOTE | 2016-07-02 16:20 | PN ---
DATE: 07/02/2016 SUBJECTIVE: This is a pulmonary followup note. The patient is stable. No new events. Continues n oninvasive positive pressure ventilation between supplemental O2. PHYSICAL EXAMINATION: VITAL SIGNS: Temperature 98, pulse is 120, blood pressure 128/78, O2 saturation 96% on 4 L nasal ca nnula. NECK: Supple. No JVD or lymphadenopathy. CARDIAC: S1, S2, no added sounds or murmurs. CHEST: Diminished air entry bilaterally. ABDOMEN: Soft, nontender. No guarding or rebound. EXTREMITIES: No cyanosis, clubbing, edema. NEUROLOGIC: Generalized weakness. IMPRESSION: 1. Acute on chronic hypercapnic respiratory failure. 2. Mild renal insufficiency. 3. Hypoxemia. PLAN: 1. Continue supplemental O2. 2. BiPAP as needed. 3. Steroid taper. 4. Bronchodilators. 5. Discussed code status. 6. Deep venous thrombosis and gastrointestinal prophylaxis. Dictated By: TRACEE CASANOVA/VICKI Conf#: [id number] DID#: [id number]
[2016-07-02] MEDS: LEVOFLOXACIN 750MG/D5W (PMX) 150 ML IVPB SCH (21:48)
[2016-07-02] MEDS: TAMSULOSIN (SR) 0.4 MG CAP PO SCH (21:49)
[2016-07-03] VITALS (16 sets, daily range): BP systolic 92–134; BP diastolic 58–91; PULSE 104–126; RESP 18–22
[2016-07-03] MEDS: ALBUTEROL/IPRATROPIUM (NEB) 3 ML AMP HHN SCH ×6 (00:13→20:40)
[2016-07-03] MEDS: ACYCLOVIR 500 MG in SOD CHLORIDE 0.9% 100 ML IVPB SCH (06:22)
[2016-07-03] MEDS: METHYLPREDNISOLONE 125 MG INJ IV SCH ×3 (06:23→17:44)
[2016-07-03] MEDS: INSULIN ASPART [NOVOLOG] 3 ML PEN SC SCH ×4 (08:00→21:00)
[2016-07-03] MEDS: POTASSIUM CHLORIDE 30 MEQ in SOD CHLORIDE 0.45% 1,000 ML IV SCH ×2 (08:03→17:44)
[2016-07-03] MEDS: FUROSEMIDE 40 MG INJ IV SCH (09:00)
[2016-07-03] MEDS: SALMETEROL/FLUTICASONE 250/50 INHA INH SCH ×2 (09:00→20:54)
[2016-07-03] MEDS: DUTASTERIDE 0.5 MG CAP PO SCH (09:00)
[2016-07-03] MEDS: PANTOPRAZOLE 40 MG INJ IV SCH (10:10)
[2016-07-03] MEDS: PAROXETINE 20 MG TAB PO SCH (10:11)
[2016-07-03] MEDS: ALPRAZOLAM 0.25 MG TAB PO SCH ×2 (10:11→20:54)
[2016-07-03] MEDS: FERROUS FUMARATE (SR) TAB PO SCH (10:11)
[2016-07-03] MEDS: TIOTROPIUM 18 MCG CAPSULE INHA DEV INH SCH (10:12)
--- NOTE | 2016-07-03 13:48 | PN ---
DATE: 07/03/2016 SUBJECTIVE: Patient feeling a little bit better but still short of breath, but less anxious today. OBJECTIVE VITAL SIGNS: Temperature 98.0, pulse 71 to 112, blood pressure 121/79, oxygen saturation 96% on 2 l iter nasal cannula oxygen. GENERAL: Well-developed, well-nourished male in no acute distress, lying in bed. SKIN: Healing vesicular lesions left buttocks, scattered purpuric lesions upper extremities and ant erior chest. LUNGS: Decreased breath sounds bilaterally with coarse rhonchi and end expiratory wheezing. HEART: Tachycardic, regular. ABDOMEN: Soft, nontender, nondistended. NEUROLOGIC: Nonfocal. ASSESSMENT AND PLAN: 1. Acute respiratory failure with hypercapnia and chronic bronchitis, improved. Patient tolerating nasal cannula oxygen with significant CO2 retention. We will repeat blood gas tomorrow to see if p atient is retaining more CO2. Patient will need further rehabilitation after hospitalization and may be a candidate for [facility]. We will discuss this with Dr. Pace, to see if he would be a suitable candidate for this. 2. Tachyarrhythmia stable. Continue with p.r.n. medications and tele monitoring. 3. Herpes zoster improved. Patient is status 1 week of acyclovir. We will discontinue this as of . 4. Benign prostatic hypertrophy. Continue with medications. 5. Glaucoma. Continue with medications. 6. Anxiety, improved. Continue his medications as it is not causing significant sedation. Dictated By: CAROLYNE PARMAR MD SR/NTS Conf#: [id number] DID#: [id number]
[2016-07-03] MEDS: TAMSULOSIN (SR) 0.4 MG CAP PO SCH (20:54)
[2016-07-03] MEDS: LEVOFLOXACIN 750MG/D5W (PMX) 150 ML IVPB SCH (20:58)
[2016-07-04] VITALS (15 sets, daily range): BP systolic 106–127; BP diastolic 63–77; PULSE 95–127; RESP 19–20
[2016-07-04] MEDS: METHYLPREDNISOLONE 125 MG INJ IV SCH ×2 (00:32→05:25)
[2016-07-04] MEDS: ALBUTEROL/IPRATROPIUM (NEB) 3 ML AMP HHN SCH ×6 (01:11→20:38)
[2016-07-04] MEDS: POTASSIUM CHLORIDE 30 MEQ in SOD CHLORIDE 0.45% 1,000 ML IV SCH (05:24)
[2016-07-04 06:28] LABS: ADD SCAN DIFF NO
[2016-07-04 06:43] LABS: ABNORMAL IP MESSAGE 1; BASOPHILS % 0.1 % (0.0-2.0); HEMATOCRIT 29.6 % (42.0-52.0); HEMOGLOBIN 8.6 g/dl (14.0-18.0); LYMPHOCYTES # 0.2 10^3/ul (0.8-2.9); LYMPHOCYTES % 1.5 % (15.0-51.0); MEAN CORPUSCULAR HEMOGLOBIN 23.8 pg (29.0-33.0); MEAN CORPUSCULAR HGB CONC 29.1 g/dl (32.0-37.0); MEAN CORPUSCULAR VOLUME 81.8 fl (82.0-101.0); MEAN PLATELET VOLUME 9.9 fl (7.4-10.4); MONOCYTE # 0.3 10^3/ul (0.3-0.9); MONOCYTES % 3.1 % (0.0-11.0); NEUTROPHIL # 9.2 10^3/ul (1.6-7.5); NEUTROPHILS % 93.2 % (39.0-77.0); NUCLEATED RED BLOOD CELLS # 0.1 10^3/ul (0.0-0.0); NUCLEATED RED BLOOD CELLS% 0.7 /100WBC (0.0-0.0); PLATELET COUNT 115 10^3/UL (140-415); RED BLOOD COUNT 3.62 10^6/ul (4.70-6.10); RED CELL DISTRIBUTION WIDTH 22.1 % (11.5-14.5); WHITE BLOOD COUNT 9.9 10^3/ul (4.8-10.8)
[2016-07-04 06:48] LABS: ALBUMIN 2.6 g/dl (3.3-4.9)
[2016-07-04 06:49] LABS: POTASSIUM 4.3 mmol/L (3.5-5.1)
[2016-07-04 06:51] LABS: BILIRUBIN,INDIRECT 0.2 mg/dl (0-1.1); BILIRUBIN,TOTAL 0.2 mg/dl (0.2-1.3); CREATININE 0.57 mg/dl (0.61-1.24)
[2016-07-04 06:52] LABS: ALBUMIN/GLOBULIN RATIO 1.13; CALCIUM 8.1 mg/dl (8.4-10.2); TOTAL PROTEIN 4.9 g/dl (6.1-8.1)
[2016-07-04] MEDS: INSULIN ASPART [NOVOLOG] 3 ML PEN SC SCH ×4 (08:00→23:39)
[2016-07-04 08:32] LABS: AADO2 Arterial 46.7 mmHg (7.0-24.0); Allen Test ACCEPTAB; Arterial Base Excess 10.8 mmol/L (-3.0-3); Arterial COHb 0.3 % (0.0-3.0); Arterial Fraction of Oxyhgb 95.2 % (93.0-99.0); Arterial MetHb 0.3 % (0.0-1.5); Arterial Total Hemglobin 9.8 g/dl (12.0-18.0); Blood Gas IEPAP 18/8; MODE MASK - BIPAP
[2016-07-04] MEDS: SALMETEROL/FLUTICASONE 250/50 INHA INH SCH ×2 (09:58→23:38)
[2016-07-04] MEDS: TIOTROPIUM 18 MCG CAPSULE INHA DEV INH SCH (09:58)
[2016-07-04] MEDS: FUROSEMIDE 40 MG INJ IV SCH (10:01)
[2016-07-04] MEDS: PANTOPRAZOLE 40 MG INJ IV SCH (10:01)
[2016-07-04] MEDS: PAROXETINE 20 MG TAB PO SCH (10:02)
[2016-07-04] MEDS: ALPRAZOLAM 0.25 MG TAB PO SCH ×2 (10:02→23:39)
[2016-07-04] MEDS: FERROUS FUMARATE (SR) TAB PO SCH (10:02)
[2016-07-04] MEDS: DUTASTERIDE 0.5 MG CAP PO SCH (10:46)
--- NOTE | 2016-07-04 11:03 | CONS ---
Date/Time of Note Date/Time of Note DATE: 07/04/16 TIME: 11:00 Assessment/Plan Assessment/Plan Additional Assessment/Plan ABG was reviewed from today next Assessment recommendations; 1. Patient admitted for hypoxemic and hypercapnic respiratory failure with significant clinical improvement. Next 2. Likely acute bronchitis. 3. History of BPH next 4. History of diabetes. 5. History of mild CHF. Decrease Solu-Medrol to 40 mg every 12 hours for 1 day with tapering down to prednisone by tomorrow. Discontinue Levaquin. Continue BiPAP at least overnight. And as needed in daytime. Consultation Date/Type/Reason Admit Date/Time Jun 26, 2016 at 11:30 Type of Consultation: Pulmonary 24 HR Interval Summary Free Text/Dictation Patient condition is markedly improved. He has been transferred out of ICU to the medical floor. He complains of mild shortness of breath. Denies any coughing, wheezing sputum production. Able to eat well. General exam; elderly male, currently in no distress. Awake and alert. Able to talk. Exam/Review of Systems Vital Signs Vitals Vital Signs Date Time Temp Pulse Resp B/P Pulse Ox O2 Delivery O2 Flow Rate FiO2 07/04/16 08:13 98.8 98 20 119/77 99 07/04/16 04:41 28 07/03/16 23:02 4.0 07/03/16 20:45 Nasal Cannula Intake and Output 07/03/16 07/03/16 07/04/16 15:00 23:00 07:00 Intake Total 1150 ml 950 ml Output Total 600 ml 300 ml Balance 550 ml 650 ml Exam HEENT exam is; supple neck, no JVD. No lymphadenopathy. Midline trachea. Patient is edentulous. Has bilateral intraocular lens implants. No lymphadenopathy no thyromegaly. Chest examination; diminished but clear breath sounds bilaterally no added sounds S1-S2 audible no murmurs regular rhythm Abdomen examination; soft, nondistended. No organomegaly. Bowel sounds audible. Extremity examination; no peripheral edema. Pulses 1+ bilaterally. H[employer] DRAFTER examination; no focal deficit. Results Result Diagram: 07/04/16 0545 07/04/16 0545 Results 24 hrs Laboratory Tests Test 07/03/16 12:23 07/03/16 17:40 07/03/16 21:00 07/04/16 05:45 Bedside Glucose 141 116 180 Alanine Aminotransferase (ALT/SGPT) 58 Albumin 2.6 L Albumin/Globulin Ratio 1.13 Alkaline Phosphatase 59 Anion Gap 7 L Aspartate Amino Transf (AST/SGOT) 55 H Basophils # 0.0 Basophils % 0.1 Blood Urea Nitrogen 15 # Calcium Level 8.1 L Carbon Dioxide Level 36 H Chloride Level 90 L Creatinine 0.57 L Direct Bilirubin 0.00 Eosinophils # 0.0 Eosinophils % 0.0 Globulin 2.30 Glucose Level 94 Hematocrit 29.6 L Hemoglobin 8.6 L Indirect Bilirubin 0.2 Lymphocytes # 0.2 L Lymphocytes % 1.5 L Mean Corpuscular Hemoglobin 23.8 L Mean Corpuscular Hemoglobin Concent 29.1 L Mean Corpuscular Volume 81.8 L Mean Platelet Volume 9.9 Monocytes # 0.3 Monocytes % 3.1 Neutrophils # 9.2 H Neutrophils % 93.2 H Nucleated Red Blood Cells # 0.1 H Nucleated Red Blood Cells % 0.7 H Platelet Count 115 L Potassium Level 4.3 Red Blood Count 3.62 L Red Cell Distribution Width 22.1 H Sodium Level 129 L Total Bilirubin 0.2 Total Protein 4.9 L White Blood Count 9.9 Test 07/04/16 08:00 07/04/16 08:20 Arterial Blood HCO3 37.0 H Arterial Blood Base Excess 10.8 H Arterial Blood Oxygen Saturation 95.8 Kahlil Test ACCEPTAB Arterial Blood Gas Puncture Site Left Radial Arterial Blood Carboxyhemoglobin 0.3 Arterial Blood Date Drawn 07/04/2016 8:22:26 AM Arterial Blood Methemoglobin 0.3 Arterial Blood pCO2 (Temp correct) 59.1 H Arterial Blood pH (Temp corrected) 7.414 Arterial Blood pO2 (Temp corrected) 83.2 Blood Gas A-a O2 Differential 46.7 H Blood Gas Actual Respiration Rate 16 Blood Gas IPAP/EPAP Ratio 18/8 Blood Gas Modality MASK - BIPAP Blood Gas Notified Time 07/04/2016 8:32:26 AM Blood Gas Notified Whom JLD Blood Gas Respiration Rate 16.0 Blood Gas Specimen Source Blood arterial Blood Gas Temperature 37.0 FiO2 28.0 Oxyhemoglobin Percent 95.2 Total Hemoglobin 9.8 L Bedside Glucose 121 Medications Medications Current Medications Diltiazem HCl (Cardizem Iv) 10 mg Q6 PRN IV heart rate >120 Last administered on 06/29/16 09:02; Admin Dose 10 MG; Start 06/26/16 at 18:00 Paroxetine HCl (Paxil) 20 mg AM PO Last administered on 07/04/16 10:02; Admin Dose 20 MG; Start 06/27/16 at 09:00 Tamsulosin HCl (Flomax) 0.4 mg QHS PO Last administered on 07/03/16 20:54; Admin Dose 0.4 MG; Start 06/26/16 at 21:00 Dutasteride (Avodart) 0.5 mg DAILY PO Last administered on 07/04/16 10:46; Admin Dose 0.5 MG; Start 06/27/16 at 09:00 Pantoprazole (Protonix Iv) 40 mg DAILY IV Last administered on 07/04/16 10:01 ; Admin Dose 40 MG; Start 06/26/16 at 18:30 Salmeterol Xinafoate/ Fluticasone (Advair 250/50 Diskus) 1 inh BID INH Last administered on 07/04/16 09:58; Admin Dose 1 INH; Start 06/26/16 at 21:00 Tiotropium [place] (Spiriva) 1 inh AM INH Last administered on 07/04/16 09:58 ; Admin Dose 1 INH; Start 06/27/16 at 09:00 Miscellaneous Information 1 ea NOTE XX ; Start 06/26/16 at 18:30 Glucose (Glutose) 15 gm Q15M PRN PO DECREASED GLUCOSE; Start 06/26/16 at 18:30 Glucose (Glutose) 22.5 gm Q15M PRN PO DECREASED GLUCOSE; Start 06/26/16 at 18:30 Dextrose (D50w Syringe) 25 ml Q15M PRN IV DECREASED GLUCOSE; Start 06/26/16 at 18:30 Dextrose (D50w Syringe) 50 ml Q15M PRN IV DECREASED GLUCOSE; Start 06/26/16 at 18:30 Glucagon (Glucagen) 1 mg Q15M PRN IM DECREASED GLUCOSE; Start 06/26/16 at 18:30 Glucose (Glutose) 15 gm Q15M PRN BUCCAL DECREASED GLUCOSE; Start 06/26/16 at 18: 30 Furosemide (Lasix) 40 mg DAILY IV Last administered on 07/04/16 10:01; Admin Dose 40 MG; Start 06/26/16 at 21:00 Lorazepam (Ativan) 0.5 mg Q4H PRN IV ANXIETY Last administered on 06/30/16 09: 04; Admin Dose 0.5 MG; Start 06/29/16 at 09:30 Docusate Sodium/ Ferrous Fumarate (Renetta-Sequels) 1 tab DAILY PO Last administered on 07/04/16 10:02; Admin Dose 1 TAB; Start 06/30/16 at 09:00 Alprazolam 0.25 mg 0.25 mg BID PO Last administered on 07/04/16 10:02; Admin Dose 0.25 MG; Start 07/02/16 at 13:30 Potassium Chloride/Sodium Chloride (KCl/NS) 1,015 ml @ 100 mls/hr Q10H9M IV ; Start 07/04/16 at 11:00; Status ROSEMARY ASHTON Jul 04, 2016 11:03
--- NOTE | 2016-07-04 13:45 | PN ---
DATE: 07/04/2016 SUBJECTIVE: Patient is feeling a little bit better, less anxious. OBJECTIVE: VITAL SIGNS: Temperature 98.2, blood pressure 109/70, pulse is 98 to 110, pulse oximetry 100% on 5 liter nasal cannula oxygen. NEUROLOGIC: Nonfocal. LABORATORY DATA: Sodium 129, potassium 4.3, chloride 90, bicarbonate 36, BUN 15, creatinine 0.57, A ST 55, ALT 58, alkaline phosphatase 59, albumin 2.6. Arterial blood gas on BiPAP shows a pH of 7.41 4, pCO2 of 59.1, pO2 of 83.2. ASSESSMENT AND PLAN: 1. Acute respiratory failure with hypercapnia/chronic bronchitis with hypoxemia, improved. The pat ient continues to require intermittent BiPAP. Oxygen saturations remained better on nasal cannula o xygen, but periodically gets hypoxic and requires the BiPAP. Patient is no longer retaining CO2, so less of a need for the BiPAP for CO2 purposes. We will continue to titrate medications and conside [facility] for possible further pulmonary rehabilitation. 2. Tachyarrhythmia, this has been stable with intermittent tachycardia but no need for medications. Will continue to monitor on telemetry. 3. Hyponatremia, new, likely related to hypotonic solutions in conjunction with diuretics, losing u sing free water. Will change IV fluids to normal saline and continue to monitor. 4. Benign prostatic hypertrophy, stable. Continue medications. 5. Herpes zoster, improved. No longer or antivirals. Dictated By: CAROLYNE PARMAR MD SR/NTS Conf#: [id number] DID#: [id number]
[2016-07-04] MEDS: POTASSIUM CHLORIDE 30 MEQ in SOD CHLORIDE 0.9% 1,000 ML IV SCH ×2 (18:57→23:39)
[2016-07-04] MEDS: METHYLPREDNISOLONE 40 MG INJ IV SCH (23:38)
[2016-07-04] MEDS: TAMSULOSIN (SR) 0.4 MG CAP PO SCH (23:38)
[2016-07-05] VITALS (16 sets, daily range): BP systolic 91–156; BP diastolic 52–70; PULSE 90–127; RESP 18–21
[2016-07-05] MEDS: ALBUTEROL/IPRATROPIUM (NEB) 3 ML AMP HHN SCH ×6 (00:18→21:02)
[2016-07-05] MEDS: PANTOPRAZOLE (EC) 40 MG TAB PO SCH (05:31)
[2016-07-05] MEDS: POTASSIUM CHLORIDE 30 MEQ in SOD CHLORIDE 0.9% 1,000 ML IV SCH ×2 (05:32→18:23)
[2016-07-05 06:29] LABS: ALBUMIN 2.7 g/dl (3.3-4.9)
[2016-07-05 06:30] LABS: POTASSIUM 3.7 mmol/L (3.5-5.1)
[2016-07-05 06:32] LABS: ALBUMIN/GLOBULIN RATIO 1.28; BILIRUBIN,INDIRECT 0.2 mg/dl (0-1.1); BILIRUBIN,TOTAL 0.2 mg/dl (0.2-1.3); CREATININE 0.65 mg/dl (0.61-1.24); TOTAL PROTEIN 4.8 g/dl (6.1-8.1)
[2016-07-05 06:33] LABS: CALCIUM 8.1 mg/dl (8.4-10.2)
[2016-07-05] MEDS: SALMETEROL/FLUTICASONE 250/50 INHA INH SCH (09:00)
[2016-07-05] MEDS: TIOTROPIUM 18 MCG CAPSULE INHA DEV INH SCH (09:00)
--- NOTE | 2016-07-05 09:20 | PN ---
DATE: 07/05/2016 SUBJECTIVE: The patient is sleeping comfortably and arousable. OBJECTIVE: VITAL SIGNS: Temperature 98.3, pulse 103, respirations 19, oxygen saturation 96% on 4 liter nasal c annula, blood pressure 140/57. GENERAL: Well-developed, well-nourished male in no acute distress, lying in bed. SKIN: Multiple purpuric lesions on the extremities, anterior chest, and tips of fingers. CHEST: Decreased breath sounds bilateral bases with scant rhonchi bilaterally and end expiratory wh eezing. HEART: Tachycardic, regular. ABDOMEN: Soft, nontender, normoactive bowel sounds. LABORATORY DATA: Sodium is 133, potassium 3.7, chloride 88, bicarbonate 42, BUN 14, creatinine 0.65 , AST 33, ALT of 64, alkaline phosphatase 69. ASSESSMENT AND PLAN: 1. Acute respiratory failure with hypercapnia/chronic bronchitis/hypoxemia. The patient remains st able and is currently off BiPAP and maintaining oxygenation. The patient is potentially a candidate for [facility]. We will try to arrange for transfer if he is a candidate. We will continue current So nini-Medrol and eventually change number operator to prednisone. Antibiotics have already been discontinued. We will continue breathing treatments as well as Advair and oxygen. 2. Tachyarrhythmia. He currently remains stable. Continue with telemetry monitoring and p.r.n. me dication. 3. Hyponatremia, improved with changing of the IV fluids, continue diuretics to get rid of free juan er to assist. 4. Benign prostatic hypertrophy, stable. Continue medications. 5. Glaucoma, stable. Continue medications. 6. Anxiety, stable. Continue his medications as this is not causing undue sedation and CO2 retenti on. Dictated By: CAROLYNE PARMAR MD SR/NTS Conf#: [id number] DID#: [id number]
[2016-07-05] MEDS: METHYLPREDNISOLONE 40 MG INJ IV SCH ×2 (09:52→21:40)
[2016-07-05] MEDS: FUROSEMIDE 40 MG INJ IV SCH (09:52)
[2016-07-05] MEDS: DUTASTERIDE 0.5 MG CAP PO SCH (09:53)
[2016-07-05] MEDS: ALPRAZOLAM 0.25 MG TAB PO SCH ×2 (09:54→21:41)
[2016-07-05] MEDS: FERROUS FUMARATE (SR) TAB PO SCH (09:54)
[2016-07-05] MEDS: PAROXETINE 20 MG TAB PO SCH (10:00)
--- NOTE | 2016-07-05 11:18 | PN ---
DATE: SUBJECTIVE: Mr. Andrew is relatively stable this morning, on nasal cannula 4 liters, without evidence of respiratory distress. PHYSICAL EXAMINATION: VITAL SIGNS: Temperature 98, pulse is 100, blood pressure 140/60, O2 saturation 96% on 4 L nasal cannula. NECK: Supple. No JVD or lymphadenopathy. CARDIAC: S1, S2, no added sounds or murmurs. CHEST: Diminished air entry bilaterally. ABDOMEN: Soft, nontender. No guarding or rebound. EXTREMITIES: No cyanosis, clubbing, 1+ edema. NEUROLOGIC: Generalized weakness. LABORATORY DATA: White count 9.9, hemoglobin 8.6, platelets 115. BUN 14, creatinine 0.65. ABG showed a pCO2 of 59 and pO2 of 83 on BiPAP yesterday morning. IMPRESSION AND PLAN: 1. Lyrwr-od-nrofhyr hypoxemic and hypercapnic respiratory failure. The patient has history of chronic respiratory failure secondary to chronic obstructive pulmonary disease and would benefit from noninvasive positive pressure ventilation, which had to be arranged for him to go home on. 2. Currently on steroid taper. 3. Tachyarrhythmia, currently stable. 4. History of BPH. 5. History of anxiety disorder. The patient pending [facility] evaluation. Potentially discharge home with noninvasive positive pressure ventilation to be set up if he declines [facility]. Palliative care may be appropriate given end stage lung disease. Dictated By: TRACEE CASANOVA/VICKI Conf#: [id number] DID#: [id number] MTDD
[2016-07-05] MEDS: TAMSULOSIN (SR) 0.4 MG CAP PO SCH (21:41)
[2016-07-06] VITALS (17 sets, daily range): BP systolic 92–111; BP diastolic 58–75; PULSE 98–133; RESP 18–20
[2016-07-06] MEDS: ALBUTEROL/IPRATROPIUM (NEB) 3 ML AMP HHN SCH ×6 (01:04→20:23)
[2016-07-06] MEDS: SALMETEROL/FLUTICASONE 250/50 INHA INH SCH ×3 (01:26→21:20)
[2016-07-06] MEDS: POTASSIUM CHLORIDE 30 MEQ in SOD CHLORIDE 0.9% 1,000 ML IV SCH ×3 (05:53→21:29)
[2016-07-06] MEDS: PANTOPRAZOLE (EC) 40 MG TAB PO SCH (05:53)
[2016-07-06 07:40] LABS: ADD SCAN DIFF NO
[2016-07-06 07:44] LABS: ABNORMAL IP MESSAGE 1; BASOPHILS % 0.2 % (0.0-2.0); HEMATOCRIT 32.1 % (42.0-52.0); HEMOGLOBIN 9.2 g/dl (14.0-18.0); LYMPHOCYTES # 0.2 10^3/ul (0.8-2.9); LYMPHOCYTES % 1.5 % (15.0-51.0); MEAN CORPUSCULAR HEMOGLOBIN 24.1 pg (29.0-33.0); MEAN CORPUSCULAR HGB CONC 28.7 g/dl (32.0-37.0); MEAN PLATELET VOLUME 9.8 fl (7.4-10.4); MONOCYTE # 0.4 10^3/ul (0.3-0.9); MONOCYTES % 2.8 % (0.0-11.0); NEUTROPHIL # 11.5 10^3/ul (1.6-7.5); NEUTROPHILS % 90.9 % (39.0-77.0); NUCLEATED RED BLOOD CELLS # 0.1 10^3/ul (0.0-0.0); NUCLEATED RED BLOOD CELLS% 0.5 /100WBC (0.0-0.0); PLATELET COUNT 118 10^3/UL (140-415); RED BLOOD COUNT 3.82 10^6/ul (4.70-6.10); RED CELL DISTRIBUTION WIDTH 22.5 % (11.5-14.5); WHITE BLOOD COUNT 12.7 10^3/ul (4.8-10.8)
[2016-07-06 07:56] LABS: POTASSIUM 4.3 mmol/L (3.5-5.1)
[2016-07-06 07:59] LABS: CALCIUM 8.1 mg/dl (8.4-10.2); CREATININE 0.57 mg/dl (0.61-1.24)
[2016-07-06] MEDS: ALPRAZOLAM 0.25 MG TAB PO SCH ×2 (08:49→21:21)
[2016-07-06] MEDS: PAROXETINE 20 MG TAB PO SCH (08:49)
[2016-07-06] MEDS: FERROUS FUMARATE (SR) TAB PO SCH (08:49)
[2016-07-06] MEDS: METHYLPREDNISOLONE 40 MG INJ IV SCH ×2 (08:49→21:20)
[2016-07-06] MEDS: DUTASTERIDE 0.5 MG CAP PO SCH (08:49)
[2016-07-06] MEDS: FUROSEMIDE 40 MG INJ IV SCH (08:50)
[2016-07-06] MEDS: TIOTROPIUM 18 MCG CAPSULE INHA DEV INH SCH (08:50)
--- NOTE | 2016-07-06 12:35 | PN ---
DATE: 07/06/2016 FOLLOWUP NOTE SUBJECTIVE: The patient remains relatively stable. No new events. PHYSICAL EXAMINATION: VITAL SIGNS: Temperature 98, pulse 82, blood pressure 100/60, O2 saturation 96% on 3 liters nasal c annula. NECK: Supple. No JVD or lymphadenopathy. CARDIAC EXAM: S1, S2. No added sounds or murmurs. CHEST: Diminished air entry bilaterally. ABDOMEN: Soft, nontender. No guarding or rebound. EXTREMITIES: No cyanosis or clubbing. 1+ edema. NEUROLOGIC: Generalized weakness. LABORATORY DATA: White count 12.7, hemoglobin 9.2, platelets of 118. BUN 14, creatinine 0.57. IMAGING: Chest x-ray was reviewed, shows signs of hyperinflation. Otherwise no significant infiltr ates or effusions. IMPRESSION AND PLAN: 1. Acute on chronic hypercapnic respiratory failure. 2. Likely mild diastolic dysfunction. 3. Benign prostatic hypertrophy. 4. Anxiety disorder. PLAN: 1. Continue O2. 2. Noninvasive positive pressure ventilation. 3. Status post steroid taper. 4. IV Lasix. 5. Bronchodilators. 6. [facility] evaluation. Dictated By: TRACEE WOODALL MD SV/VICKI Conf#: [id number] DID#: [id number]
[2016-07-06] MEDS: TAMSULOSIN (SR) 0.4 MG CAP PO SCH (21:21)
[2016-07-07] VITALS (17 sets, daily range): BP systolic 113–156; BP diastolic 65–93; PULSE 86–128; RESP 16–18
[2016-07-07] MEDS: ALBUTEROL/IPRATROPIUM (NEB) 3 ML AMP HHN SCH ×6 (00:21→20:31)
[2016-07-07] MEDS: PANTOPRAZOLE (EC) 40 MG TAB PO SCH (06:00)
--- NOTE | 2016-07-07 06:21 | PN ---
DATE: 07/06/2016 SUBJECTIVE: The patient without complaints. The patient is asleep. OBJECTIVE: VITAL SIGNS: Temperature 97.4, pulse 70 to 115, oxygen saturation 97% on FIO2 30% BiPAP mask. LUNGS: Decreased breath sounds at bases with scant rhonchi. HEART: Tachycardic, regular, with intermittent ectopy. ABDOMEN: Soft, nontender. NEUROLOGIC: Nonfocal. The patient is asleep. INPUT AND OUTPUT: In the last 24 hours was 1300 in and 2550 out with 1 bowel movement. LABORATORY EXAMINATION: Hematocrit of 32.1, hemoglobin 9.2, white blood cell count 12.7, platelets 118. Sodium 136, potassium 4.3, chloride 90, bicarbonate 45, BUN of 14, creatinine 0.57, blood suga r 127, as high as 246 at 12:06. ASSESSMENT AND PLAN: 1. Acute on chronic respiratory failure with hypercapnia, hypoxia, chronic bronchitis. The patient remains stable and awaiting [facility] evaluation. We will continue with steroids, nebulizer therapy, and intermittent BiPAP as well as supplemental oxygen. 2. Tachyarrhythmia, stable but persistent. Continue with telemetry monitoring and p.r.n. medicatio n. 3. Hyponatremia, improved with change of the IV fluids. Continue with diuretics. 4. Benign prostatic hypertrophy, stable. Continue with medications. 5. Glaucoma, stable. Continue the patient's medications. Dictated By: CAROLYNE PARMAR MD SR/VICKI Conf#: [id number] DID#: [id number]
[2016-07-07 07:32] LABS: ADD SCAN DIFF NO
[2016-07-07 07:33] LABS: ABNORMAL IP MESSAGE 1; BASOPHILS % 0.2 % (0.0-2.0); HEMATOCRIT 30.8 % (42.0-52.0); HEMOGLOBIN 8.8 g/dl (14.0-18.0); LYMPHOCYTES # 0.3 10^3/ul (0.8-2.9); LYMPHOCYTES % 2.2 % (15.0-51.0); MEAN CORPUSCULAR HGB CONC 28.6 g/dl (32.0-37.0); MEAN CORPUSCULAR VOLUME 84.2 fl (82.0-101.0); MEAN PLATELET VOLUME 10.2 fl (7.4-10.4); MONOCYTE # 0.4 10^3/ul (0.3-0.9); MONOCYTES % 3.3 % (0.0-11.0); NEUTROPHIL # 10.5 10^3/ul (1.6-7.5); NEUTROPHILS % 87.4 % (39.0-77.0); NUCLEATED RED BLOOD CELLS # 0.1 10^3/ul (0.0-0.0); NUCLEATED RED BLOOD CELLS% 0.4 /100WBC (0.0-0.0); PLATELET COUNT 114 10^3/UL (140-415); RED BLOOD COUNT 3.66 10^6/ul (4.70-6.10); RED CELL DISTRIBUTION WIDTH 23.2 % (11.5-14.5)
[2016-07-07 07:53] LABS: POTASSIUM 4.4 mmol/L (3.5-5.1)
[2016-07-07 07:56] LABS: CREATININE 0.52 mg/dl (0.61-1.24)
[2016-07-07 07:57] LABS: CALCIUM 8.2 mg/dl (8.4-10.2)
[2016-07-07] MEDS: METHYLPREDNISOLONE 40 MG INJ IV SCH ×2 (11:11→22:13)
[2016-07-07] MEDS: SALMETEROL/FLUTICASONE 250/50 INHA INH SCH ×2 (11:11→22:14)
[2016-07-07] MEDS: TIOTROPIUM 18 MCG CAPSULE INHA DEV INH SCH (11:11)
[2016-07-07] MEDS: FERROUS FUMARATE (SR) TAB PO SCH (11:12)
[2016-07-07] MEDS: PAROXETINE 20 MG TAB PO SCH (11:12)
[2016-07-07] MEDS: ALPRAZOLAM 0.25 MG TAB PO SCH ×2 (11:12→22:13)
[2016-07-07] MEDS: FUROSEMIDE 40 MG INJ IV SCH (11:13)
[2016-07-07] MEDS: DUTASTERIDE 0.5 MG CAP PO SCH (11:20)
--- NOTE | 2016-07-07 17:13 | PN ---
DATE: 07/07/2016 SUBJECTIVE: The patient Black remains relatively stable, no new events overnight. PHYSICAL EXAMINATION: VITAL SIGNS: Temperature 98, pulse 100, blood pressure 137/93, O2 saturation 96% on 3 liters. NECK: Supple, no JVD or lymphadenopathy. CARDIAC: S1, S2, no added sounds or murmurs. CHEST: Diminished air entry bilaterally. ABDOMEN: Soft, nontender. No guarding or rebound. EXTREMITIES: No cyanosis, clubbing or edema. NEUROLOGIC: Generalized weakness. LABORATORY DATA: White count 12.0, hemoglobin 8.8, platelets of 114, bicarbonate was 42 on Chem-7 IMPRESSION AND PLAN: 1. Acute on chronic hypercapnic respiratory failure. 2. Tachyarrhythmia. 3. Hyponatremia. 4. Benign prostatic hypertrophy. PLAN: 1. Continue bronchodilators and steroids and noninvasive positive pressure ventilation. 2. Aspiration precautions. 3. Pending possible transfer to [facility] depending upon insurance evaluation. Dictated By: TRACEE CASANOVA/VICKI Conf#: [id number] DID#: [id number]
[2016-07-07] MEDS: POTASSIUM CHLORIDE 30 MEQ in SOD CHLORIDE 0.9% 1,000 ML IV SCH ×2 (21:12→22:15)
[2016-07-07] MEDS: TAMSULOSIN (SR) 0.4 MG CAP PO SCH (22:13)
[2016-07-08] VITALS (23 sets, daily range): BP systolic 91–176; BP diastolic 52–81; PULSE 95–122; RESP 15–20
[2016-07-08] MEDS: ALBUTEROL/IPRATROPIUM (NEB) 3 ML AMP HHN SCH ×6 (01:34→20:49)
--- NOTE | 2016-07-08 04:14 | PN ---
DATE: 07/07/2016 SUBJECTIVE: The patient reports he is feeling better. OBJECTIVE VITAL SIGNS: Temperature 97.8, pulse 66 to 113, blood pressure 156/66, oxygen saturation is 96% on FIO2 30% BiPAP mask. GENERAL: Well-developed, well-nourished male in no acute distress, lying in bed. SKIN: Multiple purpuric lesions on upper extremities, anterior chest. Healed vesicular rash, left buttock. CHEST: Decreased breath sounds bilateral bases with scant rhonchi and end expiratory wheeze. HEART: Tachycardic, regular. ABDOMEN: Soft, nontender. NEUROLOGIC: Nonfocal. LABORATORY DATA: White blood cell count 12.0, hemoglobin is 8.8, hematocrit of 30.8, platelets 114. Sodium 137, potassium 4.4, chloride 93, bicarbonate 42, BUN 14, creatinine 0.52, blood sugar of 12 5. ASSESSMENT AND PLAN: 1. Acute respiratory failure with acute hypercapnia and chronic hypercapnia/chronic bronchitis/hypo xemia. The patient remained stable, requiring BiPAP at night, and has been able to tolerate nasal c annula oxygen during the day without significant CO2 retention. The patient is awaiting [facility] uation to see if he would be a candidate for further rehabilitation at [facility]. In the mean time, we will continue with current measures. 2. Tachyarrhythmia continues, but the patient has not required medications. Continue telemetry mon itoring for the time and p.r.n. medications. 3. Hypernatremia. This has since resolved. Continue to monitor. 4. Benign prostatic hypertrophy, stable. Continue with medications. 5. Glaucoma, stable. Continue with medications. Dictated By: CAROLYNE PARMAR MD, SR/NTS Conf#: [id number] DID#: [id number]
[2016-07-08] MEDS: PANTOPRAZOLE (EC) 40 MG TAB PO SCH (06:22)
[2016-07-08 06:50] LABS: ADD SCAN DIFF NO
[2016-07-08 06:58] LABS: ABNORMAL IP MESSAGE 1; BASOPHILS % 0.2 % (0.0-2.0); HEMATOCRIT 29.8 % (42.0-52.0); HEMOGLOBIN 8.6 g/dl (14.0-18.0); LYMPHOCYTES # 0.4 10^3/ul (0.8-2.9); MEAN CORPUSCULAR HGB CONC 28.9 g/dl (32.0-37.0); MEAN PLATELET VOLUME 9.4 fl (7.4-10.4); MONOCYTE # 0.5 10^3/ul (0.3-0.9); MONOCYTES % 4.5 % (0.0-11.0); NEUTROPHIL # 9.8 10^3/ul (1.6-7.5); NEUTROPHILS % 83.7 % (39.0-77.0); NUCLEATED RED BLOOD CELLS # 0.1 10^3/ul (0.0-0.0); NUCLEATED RED BLOOD CELLS% 0.5 /100WBC (0.0-0.0); PLATELET COUNT 115 10^3/UL (140-415); RED BLOOD COUNT 3.59 10^6/ul (4.70-6.10); RED CELL DISTRIBUTION WIDTH 23.4 % (11.5-14.5); WHITE BLOOD COUNT 11.7 10^3/ul (4.8-10.8)
[2016-07-08 07:04] LABS: POTASSIUM 4.5 mmol/L (3.5-5.1)
[2016-07-08 07:06] LABS: CREATININE 0.52 mg/dl (0.61-1.24)
[2016-07-08 07:07] LABS: CALCIUM 7.8 mg/dl (8.4-10.2)
[2016-07-08] MEDS: POTASSIUM CHLORIDE 30 MEQ in SOD CHLORIDE 0.9% 1,000 ML IV SCH (08:18)
[2016-07-08] MEDS: SALMETEROL/FLUTICASONE 250/50 INHA INH SCH ×2 (10:06→20:31)
[2016-07-08] MEDS: TIOTROPIUM 18 MCG CAPSULE INHA DEV INH SCH (10:06)
[2016-07-08] MEDS: PAROXETINE 20 MG TAB PO SCH (10:07)
[2016-07-08] MEDS: FERROUS FUMARATE (SR) TAB PO SCH (10:07)
[2016-07-08] MEDS: METHYLPREDNISOLONE 40 MG INJ IV SCH ×2 (10:07→20:31)
[2016-07-08] MEDS: ALPRAZOLAM 0.25 MG TAB PO SCH ×2 (10:07→20:30)
[2016-07-08] MEDS: DUTASTERIDE 0.5 MG CAP PO SCH (10:07)
--- NOTE | 2016-07-08 12:02 | PN ---
DATE: 07/08/2016 SUBJECTIVE: The patient feels his breathing is better. He feels weak in his legs. OBJECTIVE VITAL SIGNS: Temperature 98.2, pulse of 95, respirations 16, blood pressure 91/60, oxygen saturatio n 95% on FIO2 30%. GENERAL: Well-developed, well-nourished male in no acute distress. SKIN: Multiple purpuric lesions on the extremities, anterior chest. LUNGS: Decreased breath sounds bilateral bases with scant rhonchi, no rales noted. HEART: Tachycardic, regular. ABDOMEN: Soft, nontender. NEUROLOGIC: Nonfocal. LABORATORY DATA: Sodium 134, potassium 4.5, chloride 88, bicarbonate 47, BUN 14, creatinine 0.52, c alcium 7.8, blood sugar of 120. White blood cell count 11.7, hemoglobin of 8.6, hematocrit 29.8, pl atelets 115. ASSESSMENT AND PLAN: 1. Acute respiratory failure with acute on chronic hypercapnia/chronic bronchitis/hypoxemia. The p atient remains stable on intermittent BiPAP with nasal cannula oxygen. [facility]. Awaiting [facility] evaluation. If not a candidate for [place], patient will be s et up with home BiPAP. 2. Tachyarrhythmia. This has remained stable on telemetry with p.r.n. medications. Will discontin ue IV fluids and get rid of the Lasix and see how patient can handle those fluids at this point. Wi ll check a BNP in the morning. 3. Benign prostatic hypertrophy, stable. Continue with medications. 4. Glaucoma. Continue with medications. 5. Hyponatremia. Improves with monitoring and changing the IV fluids. Dictated By: CAROLYNE PARMAR MD SR/NTS Conf#: [id number] DID#: [id number]
--- NOTE | 2016-07-08 14:43 | CONS ---
Date/Time of Note Date/Time of Note DATE: 07/08/16 TIME: 14:41 Assessment/Plan Assessment/Plan Additional Assessment/Plan Assessment recommendations; 1. Patient admitted for respiratory failure due to acute hypercapnia with significant clinical improvement currently maintained on BiPAP. 2. Mild CHF. 3. Diabetes. 4. Bronchitis. Continue current supportive care. Prognosis is poor. Consultation Date/Type/Reason Admit Date/Time Jun 26, 2016 at 11:30 Type of Consultation: Pulmonary 24 HR Interval Summary Free Text/Dictation Patient condition is stable. Still requiring BiPAP though. Somewhat arousable. Currently in no distress. Exam/Review of Systems Vital Signs Vitals Vital Signs Date Time Temp Pulse Resp B/P Pulse Ox O2 Delivery O2 Flow Rate FiO2 07/08/16 14:34 100 98 30 07/08/16 12:40 96.4 16 113/76 07/07/16 23:31 2.0 07/07/16 20:33 Nasal Cannula Intake and Output 07/07/16 07/07/16 07/08/16 15:00 23:00 07:00 Intake Total 1280 ml 1400 ml Output Total 2000 ml 450 ml Balance -720 ml 950 ml Exam HEENT exam is; supple neck, no JVD. No lymphadenopathy. Midline trachea. No thyromegaly. Patient is edentulous, has bilateral intraocular lens implants. Chest examination; diminished but clear vessel bilaterally. S1-S2 audible, no murmurs. Regular rhythm. Exam; soft, nontender. No organomegaly. Bowel is audible. Extremity exam is; no peripheral edema. [employer]MENT [employer]ING [employer] exam; patient is somewhat arousable. Results Result Diagram: 07/08/16 0625 07/08/16 0625 Results 24 hrs Laboratory Tests Test 07/08/16 06:25 07/08/16 08:20 07/08/16 13:08 Anion Gap 4 L Basophils # 0.0 Basophils % 0.2 Blood Urea Nitrogen 14 Calcium Level 7.8 L Carbon Dioxide Level 47 *H Chloride Level 88 L Creatinine 0.52 L Eosinophils # 0.0 Eosinophils % 0.0 Glucose Level 120 Hematocrit 29.8 L Hemoglobin 8.6 L Lymphocytes # 0.4 L Lymphocytes % 3.0 L Mean Corpuscular Hemoglobin 24.0 L Mean Corpuscular Hemoglobin Concent 28.9 L Mean Corpuscular Volume 83.0 Mean Platelet Volume 9.4 Monocytes # 0.5 Monocytes % 4.5 Neutrophils # 9.8 H Neutrophils % 83.7 H Nucleated Red Blood Cells # 0.1 H Nucleated Red Blood Cells % 0.5 H Platelet Count 115 L Potassium Level 4.5 Red Blood Count 3.59 L Red Cell Distribution Width 23.4 H Sodium Level 134 L White Blood Count 11.7 H Bedside Glucose 132 112 Medications Medications Current Medications Diltiazem HCl (Cardizem Iv) 10 mg Q6 PRN IV heart rate >120 Last administered on 06/29/16 09:02; Admin Dose 10 MG; Start 06/26/16 at 18:00 Paroxetine HCl (Paxil) 20 mg AM PO Last administered on 07/08/16 10:07; Admin Dose 20 MG; Start 06/27/16 at 09:00 Tamsulosin HCl (Flomax) 0.4 mg QHS PO Last administered on 07/07/16 22:13; Admin Dose 0.4 MG; Start 06/26/16 at 21:00 Dutasteride (Avodart) 0.5 mg DAILY PO Last administered on 07/08/16 10:07; Admin Dose 0.5 MG; Start 06/27/16 at 09:00 Salmeterol Xinafoate/ Fluticasone (Advair 250/50 Diskus) 1 inh BID INH Last administered on 07/08/16 10:06; Admin Dose 1 INH; Start 06/26/16 at 21:00 Tiotropium [place] (Spiriva) 1 inh AM INH Last administered on 07/08/16 10:06 ; Admin Dose 1 INH; Start 06/27/16 at 09:00 Miscellaneous Information 1 ea NOTE XX ; Start 06/26/16 at 18:30 Glucose (Glutose) 15 gm Q15M PRN PO DECREASED GLUCOSE; Start 06/26/16 at 18:30 Glucose (Glutose) 22.5 gm Q15M PRN PO DECREASED GLUCOSE; Start 06/26/16 at 18:30 Dextrose (D50w Syringe) 25 ml Q15M PRN IV DECREASED GLUCOSE; Start 06/26/16 at 18:30 Dextrose (D50w Syringe) 50 ml Q15M PRN IV DECREASED GLUCOSE; Start 06/26/16 at 18:30 Glucagon (Glucagen) 1 mg Q15M PRN IM DECREASED GLUCOSE; Start 06/26/16 at 18:30 Glucose (Glutose) 15 gm Q15M PRN BUCCAL DECREASED GLUCOSE; Start 06/26/16 at 18: 30 Lorazepam (Ativan) 0.5 mg Q4H PRN IV ANXIETY Last administered on 06/30/16 09: 04; Admin Dose 0.5 MG; Start 06/29/16 at 09:30 Docusate Sodium/ Ferrous Fumarate (Renetta-Sequels) 1 tab DAILY PO Last administered on 07/08/16 10:07; Admin Dose 1 TAB; Start 06/30/16 at 09:00 Alprazolam (Xanax) 0.25 mg BID PO Last administered on 07/08/16 10:07; Admin Dose 0.25 MG; Start 07/02/16 at 13:30 Methylprednisolone Sodium Succinate (Solu-Medrol) 40 mg Q12 IV Last administered on 07/08/16 10:07; Admin Dose 40 MG; Start 07/04/16 at 21:00 Pantoprazole (Protonix Tab) 40 mg DAILY@06 PO Last administered on 07/08/16 06 :22; Admin Dose 40 MG; Start 07/05/16 at 06:00 ROSEMARY FRANKEL Jul 08, 2016 14:42
[2016-07-08] MEDS ORDERED: NA PHOSPHATE/BIPHOS 133 ML ENEMA PR PRN (17:30)
[2016-07-08] MEDS ORDERED: BISACODYL 10 MG SUPP PR PRN (17:30)
[2016-07-08] MEDS: TAMSULOSIN (SR) 0.4 MG CAP PO SCH (20:30)
[2016-07-09] VITALS (16 sets, daily range): BP systolic 99–122; BP diastolic 58–75; PULSE 97–119; RESP 15–19
[2016-07-09] MEDS: ALBUTEROL/IPRATROPIUM (NEB) 3 ML AMP HHN SCH ×6 (01:07→20:02)
[2016-07-09] MEDS: PANTOPRAZOLE (EC) 40 MG TAB PO SCH (06:38)
[2016-07-09 07:44] LABS: ADD SCAN DIFF NO
[2016-07-09 07:57] LABS: ABNORMAL IP MESSAGE 1; BASOPHILS % 0.1 % (0.0-2.0); HEMATOCRIT 29.6 % (42.0-52.0); HEMOGLOBIN 8.5 g/dl (14.0-18.0); LYMPHOCYTES # 0.4 10^3/ul (0.8-2.9); MEAN CORPUSCULAR HEMOGLOBIN 23.7 pg (29.0-33.0); MEAN CORPUSCULAR HGB CONC 28.7 g/dl (32.0-37.0); MEAN CORPUSCULAR VOLUME 82.5 fl (82.0-101.0); MEAN PLATELET VOLUME 10.1 fl (7.4-10.4); MONOCYTE # 0.6 10^3/ul (0.3-0.9); NEUTROPHIL # 9.1 10^3/ul (1.6-7.5); NEUTROPHILS % 82.6 % (39.0-77.0); NUCLEATED RED BLOOD CELLS # 0.1 10^3/ul (0.0-0.0); NUCLEATED RED BLOOD CELLS% 0.6 /100WBC (0.0-0.0); PLATELET COUNT 105 10^3/UL (140-415); RED BLOOD COUNT 3.59 10^6/ul (4.70-6.10); RED CELL DISTRIBUTION WIDTH 23.9 % (11.5-14.5)
[2016-07-09 08:12] LABS: POTASSIUM 4.3 mmol/L (3.5-5.1)
[2016-07-09 08:14] LABS: CREATININE 0.53 mg/dl (0.61-1.24)
[2016-07-09 08:15] LABS: CALCIUM 7.6 mg/dl (8.4-10.2)
[2016-07-09] MEDS: SALMETEROL/FLUTICASONE 250/50 INHA INH SCH ×2 (10:03→20:49)
[2016-07-09] MEDS: ALPRAZOLAM 0.25 MG TAB PO SCH ×2 (10:04→20:50)
[2016-07-09] MEDS: DUTASTERIDE 0.5 MG CAP PO SCH (10:04)
[2016-07-09] MEDS: PAROXETINE 20 MG TAB PO SCH (10:04)
[2016-07-09] MEDS: METHYLPREDNISOLONE 40 MG INJ IV SCH ×2 (10:04→20:49)
[2016-07-09] MEDS: TIOTROPIUM 18 MCG CAPSULE INHA DEV INH SCH (10:04)
[2016-07-09] MEDS: FERROUS FUMARATE (SR) TAB PO SCH (10:04)
--- NOTE | 2016-07-09 11:03 | PN ---
DATE: 07/09/2016 SUBJECTIVE: The patient remains stable. No new events. PHYSICAL EXAMINATION: VITAL SIGNS: Temperature 97, pulse ____, blood pressure 103/59, O2 saturation 96% on 3 liters. NECK: Supple. No JVD or lymphadenopathy. CARDIAC: S1, S2, no added sounds or murmurs. CHEST: Diminished air entry bilaterally. ABDOMEN: Soft, nontender. No guarding or rebound. EXTREMITIES: No cyanosis or clubbing, 2+ edema. NEUROLOGIC: Generalized weakness. LABORATORY DATA: White count 11.0, hemoglobin 8.5, platelets 105. BUN 15, creatinine 0.53. IMAGING: Chest x-ray was pending at time of this dictation. IMPRESSION AND PLAN: 1. Status post hypoxemic respiratory failure with acute on chronic hypercapnia. 2. Congestive heart failure. 3. Diabetes mellitus. 4. A recent history of herpes zoster. The patient to continue with isolation. Continue pulmonary toilet. For herpes zoster should consid er detention facility as patient may not be a candidate for [facility]. Dictated By: TRACEE CASANOVA/VICKI Conf#: [id number] DID#: [id number]
--- NOTE | 2016-07-09 13:41 | PN ---
DATE: 07/09/2016 MEDICAL PROGRESS NOTE SUBJECTIVE: The patient is feeling better today, less short of breath. OBJECTIVE: VITAL SIGNS: Temperature 97.6, blood pressure 99/60, respirations 19, pulse anywhere from 60 to 105 , oxygen saturation 97% on 30% FIO2 by face mask. GENERAL: Well-developed, well-nourished male in no acute distress. SKIN: Multiple purpuric lesions bilateral upper extremities. CHEST: Decreased breath sounds bilateral bases with scant end-expiratory wheeze. HEART: Regular rate and rhythm. ABDOMEN: Soft, nontender, mild distention, normoactive bowel sounds. EXTREMITIES: No cyanosis, clubbing or edema. NEUROLOGIC: Nonfocal. LABORATORY DATA: White blood cell count 11.0, hemoglobin 8.5, hematocrit 29.6, platelets of 105. S odium 134, potassium 4.3, chloride 94, bicarbonate 38, BUN 15, creatinine 0.53, blood sugar 111. BN P of 459. ASSESSMENT AND PLAN: 1. Acute on chronic respiratory failure with hypercapnia/chronic bronchitis/hypoxemia. The patient is improved. Awaiting [facility] evaluation for possible transfer there. If not transferred there, we will arrange for a jail facility for 1 to 2 weeks for further rehabilitation. Continue with current medications at this time. 2. Tachyarrhythmia, stable on telemetry. Continue with p.r.n. medications, at this time has not be en needed. 3. Hyponatremia. This is improved. 4. Benign prostatic hypertrophy, stable. Continue his medications. 5. Glaucoma, stable. Continue his medications. Dictated By: CAROLYNE PARMAR MD SR/VICKI Conf#: [id number] DID#: [id number]
[2016-07-09] MEDS: TAMSULOSIN (SR) 0.4 MG CAP PO SCH (20:49)
[2016-07-10] VITALS (18 sets, daily range): BP systolic 89–132; BP diastolic 53–78; PULSE 87–133; RESP 17–19
[2016-07-10] MEDS: ALBUTEROL/IPRATROPIUM (NEB) 3 ML AMP HHN SCH ×6 (00:52→21:04)
[2016-07-10] MEDS: PANTOPRAZOLE (EC) 40 MG TAB PO SCH (06:13)
[2016-07-10 08:42] LABS: ALBUMIN 2.6 g/dl (3.3-4.9); POTASSIUM 3.9 mmol/L (3.5-5.1)
[2016-07-10 08:45] LABS: ALBUMIN/GLOBULIN RATIO 1.3; BILIRUBIN,INDIRECT 0.4 mg/dl (0-1.1); BILIRUBIN,TOTAL 0.4 mg/dl (0.2-1.3); CALCIUM 8.2 mg/dl (8.4-10.2); CREATININE 0.47 mg/dl (0.61-1.24); TOTAL PROTEIN 4.6 g/dl (6.1-8.1)
[2016-07-10] MEDS: TIOTROPIUM 18 MCG CAPSULE INHA DEV INH SCH (09:00)
[2016-07-10] MEDS: PAROXETINE 20 MG TAB PO SCH (09:05)
[2016-07-10] MEDS: FERROUS FUMARATE (SR) TAB PO SCH (09:05)
[2016-07-10] MEDS: SALMETEROL/FLUTICASONE 250/50 INHA INH SCH ×2 (09:05→20:59)
[2016-07-10] MEDS: METHYLPREDNISOLONE 40 MG INJ IV SCH ×2 (09:05→20:58)
[2016-07-10] MEDS: ALPRAZOLAM 0.25 MG TAB PO SCH ×2 (09:05→20:58)
[2016-07-10] MEDS: DUTASTERIDE 0.5 MG CAP PO SCH (09:05)
--- NOTE | 2016-07-10 10:17 | PN ---
DATE: 07/10/2016 SUBJECTIVE: Patient states he is feeling better. Still no bowel movement, but no abdominal pain. OBJECTIVE: VITAL SIGNS: Temperature 98.2, pulse of 93 to 118, respirations 18, oxygen saturation 98% on 3 lite rs nasal cannula oxygen. GENERAL: Well-developed, well-nourished male in no acute distress, lying in bed. SKIN: Multiple purpuric lesions on anterior chest, bilateral upper extremities. CHEST: Decreased breath sounds bilateral bases with scant rhonchi and end-expiratory wheeze. HEART: Tachycardic, regular. ABDOMEN: Soft, nontender, mild distention, normoactive bowel sounds. EXTREMITIES: No cyanosis, clubbing or edema. NEUROLOGIC: Nonfocal. LABORATORY DATA: Pending. ASSESSMENT AND PLAN: 1. Acute on chronic hypercapnia/respiratory failure with chronic bronchitis and hypoxemia. The pat ient remains stable, but remains weak. Awaiting [facility] evaluation for possible transfer. If not, patient will need more rehabilitation perhaps at a retirement facility. We will await [facility] evaluation. 2. Tachyarrhythmia. The patient remains stable on telemetry. We will continue monitoring, p.r.n. diltiazem. 3. Benign prostatic hypertrophy, stable. 4. Glaucoma, stable. 5. Herpes zoster. This has resolved. Patient is no longer on any antiretrovirals but remains in c ontact isolation. 6. Hyponatremia. This remains stable and await lab results but no new treatment indicated. Dictated By: CAROLYNE PARMAR MD, SR/VICKI Conf#: [id number] DID#: [id number]
--- NOTE | 2016-07-10 11:18 | PN ---
DATE: 07/10/2016 SUBJECTIVE: Mr. Andrew has unchanged, remains stable. VITAL SIGNS: This morning, temperature 98, pulse is 100, blood pressure 128/70, O2 saturation 96% o n 3 liters. NECK: Supple. No JVD or lymphadenopathy. CARDIAC: S1, S2, no added sounds or murmurs. CHEST: Diminished air entry both lung bases. Poor inspiratory effort. ABDOMEN: Soft, nontender. No guarding or rebound. EXTREMITIES: No cyanosis, clubbing, 1+ edema. NEUROLOGIC: Generalized weakness. LABORATORY DATA: BUN is 8, creatinine 16. Chest x-ray has not been performed recently. IMPRESSION: 1. Status post acute on chronic hypercapnic respiratory failure. 2. History of chronic obstructive pulmonary disease. 3. Significant deconditioning. RECOMMENDATIONS 1. Continue supplemental O2. 2. Bronchodilators. 3. Aspiration precautions. 4. Continue current antibiotics. 5. Consider transfer to long term facility as transfer may not be possible secondary to insurance purposes. Dictated By: TRACEE CASANOVA/VICKI Conf#: [id number] DID#: [id number]
[2016-07-10] MEDS: TAMSULOSIN (SR) 0.4 MG CAP PO SCH (20:58)
[2016-07-11] VITALS (15 sets, daily range): BP systolic 95–154; BP diastolic 52–86; PULSE 100–119; RESP 18–22
[2016-07-11] MEDS: ALBUTEROL/IPRATROPIUM (NEB) 3 ML AMP HHN SCH ×6 (01:19→20:10)
[2016-07-11] MEDS: PANTOPRAZOLE (EC) 40 MG TAB PO SCH (05:23)
[2016-07-11] MEDS: METHYLPREDNISOLONE 40 MG INJ IV SCH ×2 (08:48→22:00)
[2016-07-11] MEDS: DUTASTERIDE 0.5 MG CAP PO SCH (08:48)
[2016-07-11] MEDS: TIOTROPIUM 18 MCG CAPSULE INHA DEV INH SCH (08:49)
[2016-07-11] MEDS: SALMETEROL/FLUTICASONE 250/50 INHA INH SCH ×2 (08:49→22:00)
[2016-07-11] MEDS: PAROXETINE 20 MG TAB PO SCH (08:49)
[2016-07-11] MEDS: FERROUS FUMARATE (SR) TAB PO SCH (08:49)
[2016-07-11] MEDS: ALPRAZOLAM 0.25 MG TAB PO SCH ×2 (08:49→22:00)
--- NOTE | 2016-07-11 10:06 | PN ---
DATE: 07/11/2016 SUBJECTIVE: The patient is feeling a little better. No abdominal pain. Mild shortness of breath. The patient complains of weakness in the legs. OBJECTIVE: VITAL SIGNS: Temperature 98.4, pulse 85 to 115, respirations 22, blood pressure 100/73, oxygen saturation 100% on 3 liter nasal cannula oxygen. GENERAL: Well-developed, well-nourished male in no acute distress, lying in bed. SKIN: Multiple purpuric lesions on upper extremities, anterior chest. CHEST: Decreased breath sounds bilateral bases with end-expiratory wheezing and scant rhonchi bilaterally. HEART: Tachycardic, regular. ABDOMEN: Soft, nontender, nondistended. EXTREMITIES: No cyanosis, clubbing or edema. NEUROLOGIC: Nonfocal. ASSESSMENT AND PLAN: 1. Acute on chronic respiratory failure with hypercapnia/chronic bronchitis/ hypoxemia, improved. We will continue with current medications. The patient apparently is not a candidate for [facility] and we will arrange for patient to be transferred to a [facility] facility for further rehabilitation prior to going home. 2. Tachyarrhythmia. This has been stable without the need for medications. We will continue to follow. 3. Hyponatremia: resolved. We will continue to monitor periodically. 4. Benign prostatic hypertrophy, stable. 5. Glaucoma, stable. 6. Discharge planning. The patient apparently is not a candidate for [facility] and we will make arrangements for possible transfer to [facility] facility. Dictated By: CAROLYNE PARMAR MD, SR/VICKI Conf#: [id number] DID#: [id number] LIGIA
[2016-07-11] MEDS: TAMSULOSIN (SR) 0.4 MG CAP PO SCH (22:00)
[2016-07-12] VITALS (17 sets, daily range): BP systolic 95–126; BP diastolic 52–77; PULSE 99–124; RESP 18–20
[2016-07-12] MEDS: ALBUTEROL/IPRATROPIUM (NEB) 3 ML AMP HHN SCH ×6 (01:53→20:48)
[2016-07-12] MEDS: PANTOPRAZOLE (EC) 40 MG TAB PO SCH (05:43)
--- NOTE | 2016-07-12 09:07 | PN ---
DATE: 07/12/2016 SUBJECTIVE: The patient complains of shortness of breath this morning. OBJECTIVE: VITAL SIGNS: Temperature 97.9, pulse 116, respirations 18, blood pressure 126/70, oxygen saturation 99% on 4-liter nasal cannula oxygen. GENERAL: Well-developed, well-nourished male, in mild respiratory distress. SKIN: Fading purpuric lesions, bilateral upper extremities and anterior chest. CHEST: Decreased breath sounds bilateral bases, with scant rhonchi and an expiratory wheeze. HEART: Tachycardic, regular. ABDOMEN: Soft, nontender. NEUROLOGIC: Nonfocal. ASSESSMENT AND PLAN: 1. Acute on chronic hypercapnia/respiratory failure, with chronic bronchitis/hypoxemia. The patien t is more short of breath this morning and will place the patient on BiPAP. The patient will contin ue to need current medications and intermittent BiPAP. The patient will need further rehabilitation to improve his shortness of breath, breathing, and endurance. 2. Tachyarrhythmia. The patient is consistently in the upper 90s to low 100s. Will begin routine d iltiazem 30 mg b.i.d. to help control this. 3. Benign prostatic hypertrophy. Stable. 4. Glaucoma. Stable. 5. Hyponatremia. Improved. Will recheck tomorrow and see if it is consistently better. 6. Discharge planning. The patient is awaiting bed availability for a long-term facility. W e will transfer to a long-term facility when a bed becomes available. Dictated By: CAROLYNE PARMAR MD, SR/VICKI Conf#: [id number] DID#: [id number]
[2016-07-12] MEDS: METHYLPREDNISOLONE 40 MG INJ IV SCH ×2 (09:22→21:28)
[2016-07-12] MEDS: DILTIAZEM 30 MG TAB PO SCH ×2 (09:22→21:28)
[2016-07-12] MEDS: SALMETEROL/FLUTICASONE 250/50 INHA INH SCH ×2 (09:22→21:00)
[2016-07-12] MEDS: FERROUS FUMARATE (SR) TAB PO SCH (09:22)
[2016-07-12] MEDS: PAROXETINE 20 MG TAB PO SCH (09:22)
[2016-07-12] MEDS: TIOTROPIUM 18 MCG CAPSULE INHA DEV INH SCH (09:23)
[2016-07-12] MEDS: ALPRAZOLAM 0.25 MG TAB PO SCH ×2 (09:23→21:27)
[2016-07-12] MEDS: DUTASTERIDE 0.5 MG CAP PO SCH (09:23)
--- NOTE | 2016-07-12 15:13 | PN ---
DATE: 07/12/2016 FOLLOWUP NOTE SUBJECTIVE: Mrs. Andrew remains largely unchanged. No new events. PHYSICAL EXAMINATION: VITAL SIGNS: Temperature 98, pulse is 100, blood pressure 97/52, O2 saturation 99% on 4 L nasal can nula. NECK: Supple. No JVD or lymphadenopathy. CARDIAC EXAM: S1, S2. No added sounds or murmurs. CHEST: Diminished air entry bilaterally. ABDOMEN: Soft, nontender. No guarding or rebound. EXTREMITIES: No cyanosis, clubbing, or edema. NEUROLOGIC: Generalized weakness. LABORATORY: Not drawn today. IMPRESSION AND PLAN: 1. Acute on chronic hypoxemic and hypercapnic respiratory failure. 2. History of chronic obstructive pulmonary disease. 3. Tachyarrhythmia. 4. History of benign prostatic hypertrophy. PLAN: 1. Continue discharge planning. 2. Continue bronchodilators. 3. Nocturnal noninvasive positive pressure ventilation. Dictated By: TRACEE CASANOVA/VICKI Conf#: [id number] DID#: [id number]
[2016-07-12] MEDS: TAMSULOSIN (SR) 0.4 MG CAP PO SCH (21:27)
[2016-07-13] VITALS (16 sets, daily range): BP systolic 92–124; BP diastolic 56–79; PULSE 85–110; RESP 20
[2016-07-13] MEDS: ALBUTEROL/IPRATROPIUM (NEB) 3 ML AMP HHN SCH ×6 (00:21→20:30)
[2016-07-13] MEDS: PANTOPRAZOLE (EC) 40 MG TAB PO SCH (06:10)
[2016-07-13 08:33] LABS: ADD SCAN DIFF NO
[2016-07-13 08:51] LABS: ABNORMAL IP MESSAGE 1; MEAN CORPUSCULAR HEMOGLOBIN 24.5 pg (29.0-33.0); MEAN CORPUSCULAR VOLUME 81.7 fl (82.0-101.0); MEAN PLATELET VOLUME 10.4 fl (7.4-10.4); PLATELET COUNT 112 10^3/UL (140-415); RED BLOOD COUNT 3.67 10^6/ul (4.70-6.10); RED CELL DISTRIBUTION WIDTH 24.2 % (11.5-14.5); WHITE BLOOD COUNT 11.7 10^3/ul (4.8-10.8)
[2016-07-13] MEDS: DILTIAZEM 30 MG TAB PO SCH ×2 (09:00→20:57)
[2016-07-13 09:05] LABS: CALCIUM 8.1 mg/dl (8.4-10.2); CREATININE 0.51 mg/dl (0.61-1.24); POTASSIUM 3.7 mmol/L (3.5-5.1)
[2016-07-13] MEDS: TIOTROPIUM 18 MCG CAPSULE INHA DEV INH SCH (09:33)
[2016-07-13] MEDS: ALPRAZOLAM 0.25 MG TAB PO SCH ×2 (09:33→20:56)
[2016-07-13] MEDS: METHYLPREDNISOLONE 40 MG INJ IV SCH ×2 (09:35→20:56)
[2016-07-13] MEDS: FERROUS FUMARATE (SR) TAB PO SCH (09:35)
[2016-07-13] MEDS: DUTASTERIDE 0.5 MG CAP PO SCH (09:35)
[2016-07-13] MEDS: PAROXETINE 20 MG TAB PO SCH (09:35)
[2016-07-13] MEDS: SALMETEROL/FLUTICASONE 250/50 INHA INH SCH ×2 (09:36→20:56)
[2016-07-13 09:59] LABS: ANISOCYTOSIS 2+; BASOPHIL # 0.1 10^3/ul (0.0-0.1); LYMPHOCYTES # 0.6 10^3/ul (0.8-2.9); MONOCYTE # 0.4 10^3/ul (0.3-0.9); NEUTROPHIL # 9.1 10^3/ul (1.6-7.5)
[2016-07-13 10:00] LABS: HYPOCHROMASIA 1+; POLYCHROMASIA 1+; TARGET CELLS OCCASIONAL
--- NOTE | 2016-07-13 13:23 | PN ---
DATE: 07/13/2016 SUBJECTIVE: The patient does not feel bad and does not feel worse, he is the same as yesterday. VITAL SIGNS: Blood pressure 93/65, temperature is 97.8, pulse is 94, respirations 20, pulse ox 99% on 3 liters nasal cannula. Patient uses BiPAP during the night. GENERAL: This is a well-developed, well-nourished male in mild respiratory distress, using nasal ca nnula oxygen 24 hours. CHEST: Had decreased breath sounds bilaterally with scant rhonchi. HEART: Regular rate and rhythm. ABDOMEN: Nontender, nondistended. LOWER EXTREMITIES: Had no pitting edema. LABORATORY DATA: WBC is 11.7, hemoglobin 9.0, creatinine at 0.51, potassium 3.7. BNP is at 417. ASSESSMENT AND PLAN: 1. Respiratory failure, currently appears to be stable using BiPAP during the night. Currently, th ey are awaiting placement for a rehabilitation facility. Patient is using 3 liters of oxygen during the day. 2. Tachyarrhythmia. Patient is on diltiazem 30 mg b.i.d. because typically his heart rate tends to be elevated. 3. Benign prostatic hypertrophy, stable. 4. Glaucoma, stable. 5. Hyponatremia, improved, currently at sodium of 132. DISCHARGE PLANNING: The patient is awaiting a bed at a jail facility. Dictated By: KEVIN NOVOA/VICKI Conf#: [id number] DID#: [id number]
[2016-07-13] MEDS: TAMSULOSIN (SR) 0.4 MG CAP PO SCH (20:56)
[2016-07-14] VITALS (14 sets, daily range): BP systolic 90–134; BP diastolic 50–74; PULSE 91–112; RESP 16–20
[2016-07-14] MEDS: ALBUTEROL/IPRATROPIUM (NEB) 3 ML AMP HHN SCH ×6 (01:33→20:32)
[2016-07-14] MEDS: PANTOPRAZOLE (EC) 40 MG TAB PO SCH (06:36)
[2016-07-14] MEDS: ALPRAZOLAM 0.25 MG TAB PO SCH ×3 (09:00→20:25)
[2016-07-14] MEDS: PAROXETINE 20 MG TAB PO SCH (09:04)
[2016-07-14] MEDS: TIOTROPIUM 18 MCG CAPSULE INHA DEV INH SCH (09:04)
[2016-07-14] MEDS: DUTASTERIDE 0.5 MG CAP PO SCH (09:04)
[2016-07-14] MEDS: FERROUS FUMARATE (SR) TAB PO SCH (09:04)
[2016-07-14] MEDS: DILTIAZEM 30 MG TAB PO SCH ×2 (09:05→20:26)
[2016-07-14] MEDS: SALMETEROL/FLUTICASONE 250/50 INHA INH SCH ×2 (09:05→20:25)
[2016-07-14] MEDS: METHYLPREDNISOLONE 40 MG INJ IV SCH ×2 (09:05→20:25)
[2016-07-14 10:55] LABS: ADD SCAN DIFF NO
[2016-07-14 11:13] LABS: POTASSIUM 3.8 mmol/L (3.5-5.1)
[2016-07-14 11:16] LABS: CREATININE 0.53 mg/dl (0.61-1.24)
[2016-07-14 11:17] LABS: CALCIUM 8.1 mg/dl (8.4-10.2)
[2016-07-14 11:33] LABS: ABNORMAL IP MESSAGE 1; BASOPHILS % 0.1 % (0.0-2.0); HEMATOCRIT 31.5 % (42.0-52.0); HEMOGLOBIN 9.3 g/dl (14.0-18.0); LYMPHOCYTES # 0.3 10^3/ul (0.8-2.9); LYMPHOCYTES % 2.3 % (15.0-51.0); MEAN CORPUSCULAR HEMOGLOBIN 24.6 pg (29.0-33.0); MEAN CORPUSCULAR HGB CONC 29.5 g/dl (32.0-37.0); MEAN CORPUSCULAR VOLUME 83.3 fl (82.0-101.0); MEAN PLATELET VOLUME 10.1 fl (7.4-10.4); MONOCYTE # 0.4 10^3/ul (0.3-0.9); MONOCYTES % 3.2 % (0.0-11.0); NEUTROPHIL # 10.3 10^3/ul (1.6-7.5); NEUTROPHILS % 88.7 % (39.0-77.0); NUCLEATED RED BLOOD CELLS% 0.3 /100WBC (0.0-0.0); PLATELET COUNT 112 10^3/UL (140-415); RED BLOOD COUNT 3.78 10^6/ul (4.70-6.10); RED CELL DISTRIBUTION WIDTH 24.1 % (11.5-14.5); WHITE BLOOD COUNT 11.6 10^3/ul (4.8-10.8)
--- NOTE | 2016-07-14 14:27 | PN ---
DATE: 07/14/2016 SUBJECTIVE: The patient is alert, oriented, in no acute distress. Initially was called this oseas bernal because the patient was hard to arouse. No explanation for this. The patient reports not feeling bad. No changes. Does not report feeling tired either. PHYSICAL EXAMINATION: VITAL SIGNS: Blood pressure stable. Temperature is 96.4, pulse is 84, respirations are 20, pulse o x 100% on 3 liters. CARDIOVASCULAR: Regular rate and rhythm. LUNGS: A few rales. EXTREMITIES: Lower extremities have no lesions. ABDOMEN: Nontender, nondistended. ASSESSMENT AND PLAN: 1. Respiratory failure, on oxygen, BiPAP during the night, doing fine. No changes. Awaiting possi bility of placement. 2. Tachycardia, on p.o. diltiazem; appears to be working. 3. Glaucoma, currently stable. Dictated By: KEVIN NOVOA/VICKI Conf#: [id number] DID#: [id number]
[2016-07-14] MEDS: TAMSULOSIN (SR) 0.4 MG CAP PO SCH (20:25)
[2016-07-15] VITALS (17 sets, daily range): BP systolic 94–124; BP diastolic 50–68; PULSE 87–108; RESP 19–20
[2016-07-15] MEDS: ALBUTEROL/IPRATROPIUM (NEB) 3 ML AMP HHN SCH ×6 (00:26→20:46)
[2016-07-15] MEDS: PANTOPRAZOLE (EC) 40 MG TAB PO SCH (06:14)
[2016-07-15] MEDS: SALMETEROL/FLUTICASONE 250/50 INHA INH SCH ×2 (08:53→21:19)
[2016-07-15] MEDS: METHYLPREDNISOLONE 40 MG INJ IV SCH ×2 (08:53→21:19)
[2016-07-15] MEDS: TIOTROPIUM 18 MCG CAPSULE INHA DEV INH SCH (08:54)
[2016-07-15] MEDS: DILTIAZEM 30 MG TAB PO SCH ×2 (08:55→21:20)
[2016-07-15] MEDS: FERROUS FUMARATE (SR) TAB PO SCH (08:55)
[2016-07-15] MEDS: DUTASTERIDE 0.5 MG CAP PO SCH (08:55)
[2016-07-15] MEDS: ALPRAZOLAM 0.25 MG TAB PO SCH ×2 (08:55→21:19)
[2016-07-15] MEDS: PAROXETINE 20 MG TAB PO SCH (08:55)
--- NOTE | 2016-07-15 10:49 | PN ---
DATE: 07/15/2016 SUBJECTIVE: Patient is feeling a little better, still feels weak in his legs. Mild shortness of breath. OBJECTIVE VITAL SIGNS: Temperature 97.6, pulse of 87, respirations 20, blood pressure 117 /68, oxygen saturation 100% on 3 liters nasal cannula O2. GENERAL: Well-developed, well-nourished male in no acute distress. SKIN: Multiple fading purpuric lesions upper extremities, anterior chest, fingertips. CHEST: Decreased breath sounds at bilateral bases with scant rhonchi. HEART: Regular rate and rhythm. ABDOMEN: Soft, nontender, nondistended. NEUROLOGIC: Nonfocal. LABORATORY DATA: White blood cell count 11.6, hemoglobin 9.3, hematocrit 31.5, platelets of 112, sodium 131, potassium 3.8, chloride of 90, bicarbonate 40, BUN 19, creatinine 0.53, blood sugar 144, calcium 8.1, this is dated July 14. ASSESSMENT AND PLAN: 1. Acute on chronic hypercapnia/respiratory failure with chronic bronchitis and hypoxemia. Patient remains stable with intermittent BiPAP use and will continue with oxygen, nebulizers and steroids. 2. Tachyarrhythmia remains improved on diltiazem. Will continue with current medications and telemetry monitoring. 3. Hyponatremia worse. Will recheck sodium in the morning. Continue with current diet and medications. 4. Benign prostatic hypertrophy, stable. 5. glaucoma:stable. 6. Discharge planning: Awaiting insurance acceptability on placement as patient has bed availability at the nursing homes and just waiting for insurance approval. Dictated By: CAROLYNE PARMAR MD SR/VICKI Conf#: [id number] DID#: [id number] MTDD
[2016-07-15] MEDS: TAMSULOSIN (SR) 0.4 MG CAP PO SCH (21:19)
[2016-07-16] VITALS (16 sets, daily range): BP systolic 94–134; BP diastolic 60–76; PULSE 80–118; RESP 18–22
[2016-07-16] MEDS: ALBUTEROL/IPRATROPIUM (NEB) 3 ML AMP HHN SCH ×6 (00:55→20:31)
[2016-07-16] MEDS: PANTOPRAZOLE (EC) 40 MG TAB PO SCH (06:09)
[2016-07-16 07:43] LABS: ADD SCAN DIFF NO
[2016-07-16 07:54] LABS: ABNORMAL IP MESSAGE 1; HEMOGLOBIN 8.8 g/dl (14.0-18.0); MEAN CORPUSCULAR HEMOGLOBIN 24.4 pg (29.0-33.0); MEAN CORPUSCULAR HGB CONC 29.3 g/dl (32.0-37.0); MEAN CORPUSCULAR VOLUME 83.3 fl (82.0-101.0); MEAN PLATELET VOLUME 10.4 fl (7.4-10.4); PLATELET COUNT 109 10^3/UL (140-415); RED CELL DISTRIBUTION WIDTH 24.2 % (11.5-14.5); WHITE BLOOD COUNT 14.4 10^3/ul (4.8-10.8)
[2016-07-16 08:20] LABS: CREATININE 0.47 mg/dl (0.61-1.24)
[2016-07-16 08:21] LABS: CALCIUM 8.5 mg/dl (8.4-10.2)
[2016-07-16] MEDS: DUTASTERIDE 0.5 MG CAP PO SCH (09:00)
[2016-07-16] MEDS ORDERED: FUROSEMIDE 20 MG INJ IV ONE (09:00)
[2016-07-16] MEDS: TIOTROPIUM 18 MCG CAPSULE INHA DEV INH SCH (09:00)
[2016-07-16] MEDS: DILTIAZEM 30 MG TAB PO SCH ×2 (09:00→21:39)
[2016-07-16] MEDS: METHYLPREDNISOLONE 40 MG INJ IV SCH ×2 (10:22→21:38)
[2016-07-16] MEDS: SALMETEROL/FLUTICASONE 250/50 INHA INH SCH ×2 (10:22→21:38)
[2016-07-16] MEDS: ALPRAZOLAM 0.25 MG TAB PO SCH ×2 (10:23→21:38)
[2016-07-16] MEDS: FERROUS FUMARATE (SR) TAB PO SCH (10:23)
[2016-07-16] MEDS: PAROXETINE 20 MG TAB PO SCH (10:23)
[2016-07-16 10:38] LABS: LYMPHOCYTES # 0.3 10^3/ul (0.8-2.9); MONOCYTE # 0.6 10^3/ul (0.3-0.9); MYELOCYTES # 0.1
--- NOTE | 2016-07-16 12:23 | PN ---
DATE: 07/16/2016 SUBJECTIVE: The patient is feeling better, less shortness of breath. OBJECTIVE VITAL SIGNS: Temperature 97.9, pulse 85, respirations 18, blood pressure 112/68, oxygen saturation 99% on 3 L nasal cannula. GENERAL: Well-developed, well-nourished male in no acute distress. SKIN: Fading purpuric lesions, upper extremities, anterior chest. CHEST: Decreased breath sounds bilateral bases with scattered rhonchi, end-expiratory wheeze. HEART: Regular rate and rhythm. ABDOMEN: Soft, nontender, nondistended. EXTREMITIES: No cyanosis, clubbing, or edema. NEUROLOGIC: Nonfocal. LABORATORY DATA: White blood cell count 14.4, hemoglobin 8.8, hematocrit 30.0, platelets 109, sodiu m 129, potassium 4.0, chloride 89, bicarbonate 38, BUN of 20, creatinine 0.47, blood sugar 183. ASSESSMENT AND PLAN: 1. Acute on chronic hypercapnia/respiratory failure with chronic bronchitis/hypoxemia. The patient remains stable. Awaiting potential transfer to either jail facility or possible reevalu ation by [place] for possible transfer to [facility]. Will continue his current medications at this time. 2. Tachyarrhythmia. This has remained stable on the diltiazem. Will continue telemetry monitoring . 3. Hyponatremia. Worse again. Will give a dose of Lasix to get rid of some free water and check a BNP tomorrow. 4. BPH, stable. 5. Glaucoma, stable. 6. Discharge planning. Wait further evaluation with respect to [facility] versus [facility] for transfer and bed availability. Dictated By: CAROLYNE PARMAR MD, SR/VICKI Conf#: [id number] DID#: [id number]
[2016-07-16] MEDS: TAMSULOSIN (SR) 0.4 MG CAP PO SCH (21:38)
[2016-07-17] VITALS (15 sets, daily range): BP systolic 100–129; BP diastolic 57–72; PULSE 85–113; RESP 16–20
[2016-07-17] MEDS: ALBUTEROL/IPRATROPIUM (NEB) 3 ML AMP HHN SCH ×6 (00:39→21:44)
[2016-07-17] MEDS: PANTOPRAZOLE (EC) 40 MG TAB PO SCH (05:33)
[2016-07-17 06:49] LABS: ADD SCAN DIFF NO
[2016-07-17 06:52] LABS: ABNORMAL IP MESSAGE 1; BASOPHIL # 0.1 10^3/ul (0.0-0.1); BASOPHILS % 0.4 % (0.0-2.0); HEMATOCRIT 29.5 % (42.0-52.0); HEMOGLOBIN 8.9 g/dl (14.0-18.0); LYMPHOCYTES # 0.2 10^3/ul (0.8-2.9); LYMPHOCYTES % 1.8 % (15.0-51.0); MEAN CORPUSCULAR HGB CONC 30.2 g/dl (32.0-37.0); MEAN CORPUSCULAR VOLUME 82.9 fl (82.0-101.0); MONOCYTE # 0.4 10^3/ul (0.3-0.9); MONOCYTES % 2.9 % (0.0-11.0); NEUTROPHIL # 11.7 10^3/ul (1.6-7.5); NEUTROPHILS % 87.3 % (39.0-77.0); NUCLEATED RED BLOOD CELLS # 0.2 10^3/ul (0.0-0.0); NUCLEATED RED BLOOD CELLS% 1.2 /100WBC (0.0-0.0); PLATELET COUNT 95 10^3/UL (140-415); RED BLOOD COUNT 3.56 10^6/ul (4.70-6.10); RED CELL DISTRIBUTION WIDTH 24.2 % (11.5-14.5); WHITE BLOOD COUNT 13.4 10^3/ul (4.8-10.8)
[2016-07-17 08:11] LABS: POTASSIUM 3.6 mmol/L (3.5-5.1)
[2016-07-17 08:14] LABS: CREATININE 0.49 mg/dl (0.61-1.24)
[2016-07-17 08:15] LABS: CALCIUM 8.2 mg/dl (8.4-10.2)
[2016-07-17] MEDS: DUTASTERIDE 0.5 MG CAP PO SCH (09:07)
[2016-07-17] MEDS: METHYLPREDNISOLONE 40 MG INJ IV SCH ×2 (09:07→20:53)
[2016-07-17] MEDS: SALMETEROL/FLUTICASONE 250/50 INHA INH SCH ×2 (09:07→20:52)
[2016-07-17] MEDS: TIOTROPIUM 18 MCG CAPSULE INHA DEV INH SCH (09:07)
[2016-07-17] MEDS: ALPRAZOLAM 0.25 MG TAB PO SCH ×2 (09:08→20:52)
[2016-07-17] MEDS: FERROUS FUMARATE (SR) TAB PO SCH (09:08)
[2016-07-17] MEDS: PAROXETINE 20 MG TAB PO SCH (09:09)
[2016-07-17] MEDS: DILTIAZEM 30 MG TAB PO SCH (09:09)
[2016-07-17] MEDS ORDERED: FUROSEMIDE 20 MG INJ IV ONE (13:00)
[2016-07-17] MEDS: BRIMONIDINE 0.1% 5 ML OPH BOTH EYES SCH (13:41)
--- NOTE | 2016-07-17 14:12 | PN ---
DATE: 07/17/2016 SUBJECTIVE: Patient is feeling okay today. Patient has had some mild lightheadedness on standing. OBJECTIVE VITAL SIGNS: Temperature 97.4, pulse of 85 to 104, respirations 20, blood pressure 102/57, oxygen s aturation 97% on 3 liter nasal cannula oxygen. GENERAL: Well-developed, well-nourished male in no acute distress. SKIN: With fading purpuric lesions upper extremities, anterior chest. CHEST: Decreased breath sounds bilateral bases with scant rhonchi. HEART: Tachycardic, regular. ABDOMEN: Soft, nontender. EXTREMITIES: Trace to 1+ bilateral lower extremity edema. NEUROLOGIC: Nonfocal. LABORATORY DATA: Sodium 127, potassium 3.6, bicarbonate 35, chloride 88, BUN 20, creatinine 0.49, b lood sugar of 214, proBNP of 493. Hemoglobin of 8.9, hematocrit of 29.5. White blood cell count 13. 4, platelets of 95. ASSESSMENT AND PLAN: 1. Acute on chronic hypercapnia/respiratory failure with chronic bronchitis and hypoxemia, stable. Patient continues to await possible placement to care home facility versus [facility] and waiting for reassessment and insurance approval versus denial. We will continue with current treatment at t his time. 2. Tachyarrhythmia remains stable. Patient is on telemetry. We will have to discontinue the dilti azem due to low blood pressure and lightheadedness but continue telemetry monitoring. 3. Glaucoma remains stable. Continue with drops. 4. Edema. We will give a dose of Lasix x1 today and revaluate tomorrow. 5. Hyponatremia is worse. Will give Lasix x1 to decrease free water. Dictated By: CAROLYNE PARMAR MD SR/NTS Conf#: [id number] DID#: [id number]
[2016-07-17] MEDS: LATANOPROST 0.005% 2.5 ML OPH BOTH EYES SCH (20:52)
[2016-07-17] MEDS: TAMSULOSIN (SR) 0.4 MG CAP PO SCH (20:52)
[2016-07-18] VITALS (16 sets, daily range): BP systolic 98–181; BP diastolic 57–81; PULSE 90–120; RESP 16–20
[2016-07-18] MEDS: ALBUTEROL/IPRATROPIUM (NEB) 3 ML AMP HHN SCH ×6 (00:15→21:08)
[2016-07-18] MEDS: PANTOPRAZOLE (EC) 40 MG TAB PO SCH (05:29)
[2016-07-18 08:01] LABS: ADD SCAN DIFF NO
[2016-07-18 08:11] LABS: ABNORMAL IP MESSAGE 1; BASOPHIL # 0.1 10^3/ul (0.0-0.1); BASOPHILS % 0.6 % (0.0-2.0); HEMATOCRIT 30.3 % (42.0-52.0); HEMOGLOBIN 9.3 g/dl (14.0-18.0); LYMPHOCYTES # 0.2 10^3/ul (0.8-2.9); LYMPHOCYTES % 1.9 % (15.0-51.0); MEAN CORPUSCULAR HEMOGLOBIN 25.5 pg (29.0-33.0); MEAN CORPUSCULAR HGB CONC 30.7 g/dl (32.0-37.0); MEAN PLATELET VOLUME 10.4 fl (7.4-10.4); MONOCYTE # 0.5 10^3/ul (0.3-0.9); MONOCYTES % 3.6 % (0.0-11.0); NEUTROPHIL # 10.7 10^3/ul (1.6-7.5); NEUTROPHILS % 86.4 % (39.0-77.0); NUCLEATED RED BLOOD CELLS # 0.2 10^3/ul (0.0-0.0); NUCLEATED RED BLOOD CELLS% 1.9 /100WBC (0.0-0.0); PLATELET COUNT 90 10^3/UL (140-415); RED BLOOD COUNT 3.65 10^6/ul (4.70-6.10); RED CELL DISTRIBUTION WIDTH 24.7 % (11.5-14.5); WHITE BLOOD COUNT 12.4 10^3/ul (4.8-10.8)
[2016-07-18 08:27] LABS: POTASSIUM 3.8 mmol/L (3.5-5.1)
[2016-07-18 08:30] LABS: CREATININE 0.49 mg/dl (0.61-1.24)
[2016-07-18 08:31] LABS: CALCIUM 7.9 mg/dl (8.4-10.2)
[2016-07-18] MEDS ORDERED: FUROSEMIDE 20 MG INJ IV ONE (09:00)
[2016-07-18] MEDS: SALMETEROL/FLUTICASONE 250/50 INHA INH SCH ×2 (09:24→20:45)
[2016-07-18] MEDS: TIOTROPIUM 18 MCG CAPSULE INHA DEV INH SCH (09:24)
[2016-07-18] MEDS: BRIMONIDINE 0.1% 5 ML OPH BOTH EYES SCH (09:24)
[2016-07-18] MEDS: ALPRAZOLAM 0.25 MG TAB PO SCH ×2 (09:25→20:45)
[2016-07-18] MEDS: PAROXETINE 20 MG TAB PO SCH (09:25)
[2016-07-18] MEDS: METHYLPREDNISOLONE 40 MG INJ IV SCH ×2 (09:25→20:45)
[2016-07-18] MEDS: DUTASTERIDE 0.5 MG CAP PO SCH (09:25)
[2016-07-18] MEDS: FERROUS FUMARATE (SR) TAB PO SCH (09:25)
--- NOTE | 2016-07-18 09:26 | PN ---
DATE: 07/18/2016 SUBJECTIVE: The patient is without complaint. Feels weak still. OBJECTIVE: VITAL SIGNS: Temperature 97.5, blood pressure 98/61, pulse of 100, respirations 18, pulse oximetry oxygen saturation 98% on 3 liters. GENERAL: Well-developed, well-nourished male in no acute distress. SKIN: Without rashes. CHEST: Decreased breath sounds bilateral bases with end-expiratory wheeze, scant rhonchi. HEART: Tachycardic, regular. ABDOMEN: Soft, nontender, nondistended. EXTREMITIES: Trace edema bilateral lower extremities. NEUROLOGIC: Nonfocal. LABORATORY DATA: White blood cell count 12.4, hemoglobin 9.3, hematocrit 30.3, platelets of 90, sod ium was 130, potassium 3.8, chloride 88, bicarbonate 39, BUN of 22, creatinine 0.49, blood sugar of 175. ProBNP of 608. ASSESSMENT AND PLAN 1. Acute on chronic hypercapnia/respiratory failure/chronic bronchitis and hypoxemia. The patient remains stable and doing well with a combination of oxygen as well as nighttime BiPAP. We will cont inue with this therapy and await possible transfer to [place] versus a long term facility for [facility]. 2. Tachyarrhythmia. He remains stable on telemetry. The patient's diltiazem needed to be disconti nued yesterday due to hypotension. Will continue to monitor on telemetry and give p.r.n. diltiazem for heart rates above 120. 3. Hypernatremia. Improved with Lasix. Will give another dose of Lasix today and continue to foll ow chem panel. 4. Glaucoma, remains stable. 5. Benign prostatic hypertrophy, remains stable. 6. Discharge planning. Continue to await insurance authorization for possible long term faci lity transfer versus [facility]. Dictated By: CAROLYNE PARMAR MD SR/NTS Conf#: [id number] DID#: [id number]
[2016-07-18] MEDS: TAMSULOSIN (SR) 0.4 MG CAP PO SCH (20:45)
[2016-07-18] MEDS: LATANOPROST 0.005% 2.5 ML OPH BOTH EYES SCH (20:45)
[2016-07-19] VITALS (12 sets, daily range): BP systolic 86–130; BP diastolic 56–72; PULSE 56–121; RESP 15–20
[2016-07-19] MEDS: ALBUTEROL/IPRATROPIUM (NEB) 3 ML AMP HHN SCH ×3 (01:12→08:58)
[2016-07-19] MEDS: PANTOPRAZOLE (EC) 40 MG TAB PO SCH (05:35)
[2016-07-19 08:19] LABS: ADD SCAN DIFF NO
[2016-07-19 08:24] LABS: ABNORMAL IP MESSAGE 1; HEMATOCRIT 29.7 % (42.0-52.0); HEMOGLOBIN 8.9 g/dl (14.0-18.0); MEAN CORPUSCULAR VOLUME 83.4 fl (82.0-101.0); MEAN PLATELET VOLUME 10.2 fl (7.4-10.4); PLATELET COUNT 70 10^3/UL (140-415); RED BLOOD COUNT 3.56 10^6/ul (4.70-6.10); RED CELL DISTRIBUTION WIDTH 25.1 % (11.5-14.5)
[2016-07-19] MEDS: METHYLPREDNISOLONE 40 MG INJ IV SCH (08:43)
[2016-07-19] MEDS: DUTASTERIDE 0.5 MG CAP PO SCH (08:43)
[2016-07-19] MEDS: ALPRAZOLAM 0.25 MG TAB PO SCH (08:43)
[2016-07-19] MEDS: PAROXETINE 20 MG TAB PO SCH (08:43)
[2016-07-19] MEDS: SALMETEROL/FLUTICASONE 250/50 INHA INH SCH (08:43)
[2016-07-19] MEDS: FERROUS FUMARATE (SR) TAB PO SCH (08:46)
[2016-07-19 09:20] LABS: POTASSIUM 3.8 mmol/L (3.5-5.1)
[2016-07-19 09:23] LABS: CREATININE 0.52 mg/dl (0.61-1.24)
[2016-07-19 09:24] LABS: CALCIUM 8.4 mg/dl (8.4-10.2)
--- NOTE | 2016-07-19 09:35 | PN ---
DATE: 07/19/2016 SUBJECTIVE: The patient is feeling stronger, less short of breath, and had a small bowel movement. OBJECTIVE: VITAL SIGNS: Temperature 98.1, pulse 80 to 101, respirations 16, blood pressure 90/56, oxygen satur ation 95% on 3 liter nasal cannula. GENERAL: Well-developed, well-nourished male in no acute distress, lying in bed. CHEST: Decreased breath sounds bilateral bases with end expiratory wheezing, scant rhonchi. HEART: Tachycardic. ABDOMEN: Soft, nontender. EXTREMITIES: Trace bilateral lower extremity edema. NEUROLOGIC: Nonfocal. LABORATORY DATA: BNP is pending. White blood cell count 10.0, hemoglobin of 8.9, hematocrit 29.7, platelets of 70. ASSESSMENT: 1. Acute on chronic hypercapnia/respiratory failure/chronic bronchitis/hypoxemia, improved. The pa tiegifty is stable for discharge to senior care facility for further rehabilitation and treatment. We will continue with nebulizer therapy, Advair, and steroids. No need for any antibiotics. The p atient will need to continue with p.r.n. BiPAP. 2. Tachyarrhythmia. The patient is stable but cannot tolerate medications due to hypotension. Con tinue with daily Lasix. 3. Glaucoma. Continue with patient's drops. 4. Benign prostatic hypertrophy. Continue the patient's medications. 5. Thrombocytopenia, getting worse. We will repeat CBC on Friday to follow. 6. Discharge planning. The patient is stable for discharge to a senior care facility for [facility] prior to potentially going home. Dictated By: CAROLYNE PARMAR MD SR/NTS Conf#: [id number] DID#: [id number]
[2016-07-19 10:24] LABS: LYMPHOCYTES # 0.3 10^3/ul (0.8-2.9); MONOCYTE # 0.1 10^3/ul (0.3-0.9); MYELOCYTES # 0.1; NEUTROPHIL # 7.2 10^3/ul (1.6-7.5)
[2016-07-19] MEDS: BRIMONIDINE 0.1% 5 ML OPH BOTH EYES SCH (10:35)
[2016-07-19] MEDS: TIOTROPIUM 18 MCG CAPSULE INHA DEV INH SCH (11:44)
== END 2016-07-19 13:40 | DRG 291 ==
LOC: E/R 11:24 → TEL 11:30 → MS4 07-01 01:33
PROVIDERS: ADMIT Internal Medicine; ATTEND Internal Medicine
PROC: 5A09557 Assistance with Respiratory Ventilation, Greater than 96 Consecutive Hours, Continuous Positive Airway Pressure (ICD-10-PCS; principal; 2016-06-26)
DX: I50.23 Acute on chronic systolic (congestive) heart failure (principal); J96.22 Acute and chronic respiratory failure with hypercapnia; G93.40 Encephalopathy, unspecified; J18.9 Pneumonia, unspecified organism; J44.0 Chronic obstructive pulmonary disease with (acute) lower respiratory infection; D64.9 Anemia, unspecified; E13.65 Other specified diabetes mellitus with hyperglycemia; D69.6 Thrombocytopenia, unspecified; B02.9 Zoster without complications; E87.1 Hypo-osmolality and hyponatremia; J44.1 Chronic obstructive pulmonary disease with (acute) exacerbation; J42 Unspecified chronic bronchitis; R00.0 Tachycardia, unspecified; N40.0 Benign prostatic hyperplasia without lower urinary tract symptoms; Z87.891 Personal history of nicotine dependence; H40.9 Unspecified glaucoma; F41.9 Anxiety disorder, unspecified; J20.9 Acute bronchitis, unspecified; Z66 Do not resuscitate
CPT/HCPCS: 36600; 70450; 71010; 80048; 80053; 82040; 82140; 82803; 82962; 83036; 83605; 83735; 83880; 84100; 84484; 85025; 85610; 85730; 87040; 87400; 92526; 92610; 93005; 94640; 94660; 94664; 94668; 96372; 96374; 96375; 97110; 97162; 97530; J1940; C9113; J0133; J0692; J1815; J1956; J2060; J2920; J2930; J3370; J7030; J7040